=== PATIENT | male | born 1955 | race Caucasian/White ===

== ENCOUNTER 2020-02-18 17:18 | Emergency (ER) | payer MEDICARE, MEDICAID, OTHER ==
--- NOTE | 2020-02-18 18:15 | EDM.PDOC ---
ED HPI GENERAL MEDICAL PROBLEM - General Chief Complaint: General Stated Complaint: EVAL Time Seen by Provider: 02/18/20 18:05 Source of Information: Reports: Patient History Limitations: Reports: No Limitations - History of Present Illness INITIAL COMMENTS - FREE TEXT/NARRATIVE: Patient presents for evaluation of generalized achiness, fatigue, increasing foot pain, shortness of breath, chest discomfort. He has a complicated medical history with multiple comorbidities. He was last seen by a physician when he was hospitalized in her room approximately 1 year ago. He states that he has not gone into any clinics since that time. He has in-home personal assistance 9 hours/day for bathing and other items. When asked why he came tonight, he states that he went into his local clinic but given everything he described and the possibility he might have the coronavirus, he was referred here. His drove him here. He has had low-grade feelings of warmth but no chills. Some chronic intermittent coughing and shortness of breath although he spends most of his day in a wheelchair. He denies chest pain but describes things as chest discomfort. He has had some nausea but has not vomited routinely. He will eat some food but then be full quickly and will not eat anymore. He is not been on a scale for a long time and he has no idea if he is losing weight, gaining weight or holding his own. He has had pain in his legs for a long time he states since he was diagnosed with congestive heart failure. He cannot list his medications but his manages them. He is frustrated with the fact that others have to take care of him. She controls all of his medications now out of concern that he might attempt to overdose. Many years ago he was hospitalized with suicidal thoughts at the time of pending divorce. He has had no psychiatric hospitalizations since then. He considers his suicide risk low at this time. As noted above he was hospitalized in [place] approximately 1 year ago but the details of that visit are incomplete. Onset: Gradual Duration: Week(s):, Chronic, Intermittent Location: Reports: Head, Chest, Abdomen, Lower Extremity, Left, Lower Extremity, Right, Generalized Quality: Reports: Ache, Burning, Throbbing Severity: Moderate Improves with: Reports: None Worsens with: Reports: Movement Associated Symptoms: Reports: Chest Pain, Cough, Headaches, Loss of Appetite, Malaise, Nausea/Vomiting, Rash, Shortness of Breath, Weakness. Denies: Diaphoresis, Fever/Chills, Syncope Bilateral Feet Pain Score (Numeric/FACES): 10 - Related Data Allergies Allergy/AdvReac Type Severity Reaction Status Date / Time carvedilol [From Coreg] Allergy Other Verified 02/18/20 18:37 gabapentin Allergy Hives Verified 02/18/20 18:37 spironolactone Allergy Hives Verified 02/18/20 18:37 Home Meds: Home Meds Allopurinol [Zyloprim] 300 mg PO DAILY 02/18/20 [History] Colchicine [Colcrys] 0.6 mg PO TID PRN 02/18/20 [History] Cyclobenzaprine [Flexeril] 10 mg PO TID PRN 02/18/20 [History] Diltiazem HCl [Diltiazem 24Hr ER] 120 mg PO DAILY 02/18/20 [History] Furosemide 40 mg PO DAILY 02/18/20 [History] Magnesium Oxide 800 mg PO BID 02/18/20 [History] Metoprolol Succinate 75 mg PO DAILY 02/18/20 [History] Potassium Chloride 40 meq PO BID 02/18/20 [History] Sertraline [Zoloft] 25 mg PO DAILY 02/18/20 [History] atorvaSTATin [Lipitor] 10 mg PO DAILY 02/18/20 [History] hydrALAZINE [Apresoline] 25 mg PO Q8H 02/18/20 [History] metOLazone [Metolazone] 5 mg PO DAILY 02/18/20 [History] traZODone 100 mg PO BEDTIME 02/18/20 [History] Past Medical History HEENT History: Reports: Other (See Below) Other HEENT History: esophageal varices Cardiovascular History: Reports: Afib, Heart Failure Psychiatric History: Reports: Addiction Endocrine/Metabolic History: Reports: Diabetes, Type II - Infectious Disease History Infectious Disease History: Reports: Chicken Pox - Past Surgical History GI Surgical History: Reports: Cholecystectomy Social & Family History - Tobacco Use Smoking Status *Q: Never Smoker - Caffeine Use Caffeine Use: Reports: Other - Alcohol Use Days Per Week of Alcohol Use: 7 Number of Drinks Per Day: 3 Total Drinks Per Week: 21 - Recreational Drug Use Recreational Drug Use: No ED ROS GENERAL - Review of Systems Review Of Systems: See Below Constitutional: Reports: Malaise, Weakness, Fatigue, Decreased Appetite. Denies: Diaphoresis Respiratory: Reports: Shortness of Breath, Cough. Denies: Wheezing Cardiovascular: Reports: Chest Pain, Dyspnea on Exertion GI/Abdominal: Reports: Decreased Appetite, Nausea, Vomiting. Denies: Constipation, Diarrhea, Difficulty Swallowing, Hematochezia, Melena Musculoskeletal: Reports: Foot Pain, Muscle Pain Neurological: Reports: Headache Psychiatric: Reports: Anxiety ED EXAM, GENERAL - Physical Exam Exam: See Below Free Text/Narrative:: This is an adult male seated in an oversized wheelchair. He chronicles his history but sounds tired and frustrated. Exam Limited By: No Limitations General Appearance: Alert Neck: Normal Inspection Respiratory/Chest: Normal Breath Sounds. No: No Accessory Muscle Use Cardiovascular: Tachycardia, Irregularly Irregular Peripheral Pulses: 2+: Posterior Tibial (L), Posterior Tibial (R) GI/Abdominal: Soft. No: Distended Extremities: Other (There are varying thickness ulcers on both feet, the left foot shows a great toe ulcer with fissuring and black discoloration of the skin. There is an ulcer on the medial aspect of the left calcaneus. The right foot shows an ulcer on the distal lateral forefoot. There is diffuse tenderness. Some exudate present in the wounds.) Neurological: Other (Bilateral foot neuropathy.) Psychiatric: Depressed Mood, Flat Affect EKG INTERPRETATION EKG Date: 02/18/20 Time: 18:39 Rhythm: A-Fib [place]: LAD-Left [place] Deviation P-Wave: Absent QRS: Normal ST-T: Normal QT: Normal EKG Interpretation Comments: Atrial fibrillation with rapid ventricular response. Course - Vital Signs Last Recorded V/S: Last Vital Signs Temp 35.6 C L 02/18/20 17:31 Pulse 78 02/18/20 17:31 Resp 18 02/18/20 17:31 BP 139/89 02/18/20 17:31 Pulse Ox 95 02/18/20 17:31 - Orders/Labs/Meds Orders: Active Orders 24 hr Category Date Time Status EKG Documentation Completion [RC] ASDIRECTED Care 02/18/20 18:35 Ordered Chest 2V [CR] Stat Exams 02/18/20 18:33 Ordered Foot Comp Min 3V Bi [CR] Stat Exams 02/18/20 18:33 Ordered CORONAVIRUS COVID-19, ASA Routine Lab 02/18/20 18:35 Ordered GLYCOSYLATED HEMOGLOBIN,HGBA1C [CHEM] Stat Lab 02/18/20 19:55 Ordered EKG 12 Lead [EK] Routine Ther 02/18/20 18:34 Ordered Labs: Laboratory Tests 02/18/20 02/18/20 02/18/20 Range/Units 18:54 18:54 18:54 WBC 10.2 (4.5-11.0) K/uL RBC 5.27 (4.30-5.90) M/uL Hgb 15.0 (12.0-15.0) g/dL Hct 47.4 (40.0-54.0) % MCV 90 (80-98) fL MCH 29 (27-31) pg MCHC 32 (32-36) % Plt Count 293 (150-400) K/uL Neut % (Auto) 74 H (36-66) % Lymph % (Auto) 12 L (24-44) % [place] % (Auto) 12 H (2-6) % Eos % (Auto) 1 L (2-4) % Baso % (Auto) 1 (0-1) % ESR 87 H (0-20) mm/hr Sodium 140 (140-148) mmol/L Potassium 4.0 (3.6-5.2) mmol/L Chloride 100 (100-108) mmol/L Carbon Dioxide 28 (21-32) mmol/L Anion Gap 12.3 (5.0-14.0) mmol/L BUN 15 (7-18) mg/dL Creatinine 1.5 H (0.8-1.3) mg/dL Est Cr Clr Drug Dosing 47.50 mL/min Estimated GFR (MDRD) 47 L (>60) Glucose 200 H (74-106) mg/dL Calcium 8.6 (8.5-10.1) mg/dL Total Bilirubin 0.7 (0.2-1.0) mg/dL AST 52 H (15-37) U/L ALT 31 (12-78) U/L Alkaline Phosphatase 180 H (46-116) U/L Troponin I < 0.017 (0.000-0.056) ng/mL C-Reactive Protein 2.30 H (0.0-0.3) mg/dL NT-Pro-B Natriuret Pep (5-125) pg/mL Total Protein 8.2 (6.4-8.2) g/dL Albumin 2.8 L (3.4-5.0) g/dL Globulin 5.4 H (2.3-3.5) g/dL Albumin/Globulin Ratio 0.5 L (1.2-2.2) /16 Range/Units 18:55 WBC (4.5-11.0) K/uL RBC (4.30-5.90) M/uL Hgb (12.0-15.0) g/dL Hct (40.0-54.0) % MCV (80-98) fL MCH (27-31) pg MCHC (32-36) % Plt Count (150-400) K/uL Neut % (Auto) (36-66) % Lymph % (Auto) (24-44) % [place] % (Auto) (2-6) % Eos % (Auto) (2-4) % Baso % (Auto) (0-1) % ESR (0-20) mm/hr Sodium (140-148) mmol/L Potassium (3.6-5.2) mmol/L Chloride (100-108) mmol/L Carbon Dioxide (21-32) mmol/L Anion Gap (5.0-14.0) mmol/L BUN (7-18) mg/dL Creatinine (0.8-1.3) mg/dL Est Cr Clr Drug Dosing mL/min Estimated GFR (MDRD) (>60) Glucose (74-106) mg/dL Calcium (8.5-10.1) mg/dL Total Bilirubin (0.2-1.0) mg/dL AST (15-37) U/L ALT (12-78) U/L Alkaline Phosphatase (46-116) U/L Troponin I (0.000-0.056) ng/mL C-Reactive Protein (0.0-0.3) mg/dL NT-Pro-B Natriuret Pep 1065 H (5-125) pg/mL Total Protein (6.4-8.2) g/dL Albumin (3.4-5.0) g/dL Globulin (2.3-3.5) g/dL Albumin/Globulin Ratio (1.2-2.2) - Re-Assessments/Exams Free Text/Narrative Re-Assessment/Exam: 02/18/20 20:01 I reviewed findings with patient and his . Blood glucose is 200. Troponin is okay. He has renal function shows a creatinine of 1.5. His has some recall for medications that he takes however he has not been taking any of them regularly. He is insistent that he does not want to be hospitalized. He is on only 120 mg of sustained-release diltiazem. I am sending him with a prescription for 14 tablets of the 180 mg strength. I discussed that once his heart rate is more controlled, he will have more energy. His questions the dose currently of his metoprolol. I reminded the patient and his several times that consistency is the esteban to getting him to feel better. He lists a dose of only 25 mg of sertraline. Given his frustration with his chronic conditions, he needs to take that every day, which she has not been. After 1 week, he could increase the dose to 50 mg and likely it will have to go higher. His ulcers will need evaluation by podiatry or surgery and likely will need some debridement. He should schedule a recheck time with his primary care provider for 10 to 14 days from now. If he if he feels worse in any way, he can return here. Reviewed with both of them that there is no quick, simple solution to getting him to feel better. Departure - Departure Time of Disposition: 19:52 Disposition: Home, Self-Care 01 Condition: Fair Clinical Impression: Atrial fibrillation with rapid ventricular response, Hyperglycemia, Cellulitis, CHF, Congestive heart failure Diabetic foot ulcers Qualifiers: Diabetic foot ulcer location: unspecified part of foot Diabetes mellitus type: type 2 Laterality: unspecified laterality Non-pressure ulcer stage: with fat layer exposed Qualified Code(s): E11.621 - Type 2 diabetes mellitus with foot ulcer - Discharge Information Instructions: Preventing Diabetes Mellitus Complications Referrals: Warren Clinton NP [Primary Care Provider] - Forms: ED Department Discharge Additional Instructions: Take a dose of your diltiazem when you get home tonight. Tomorrow, fill the prescriptions for the antibiotic for your feet and the new higher dose of diltiazem. Continue your other medicines the same. Make an appointment for 10 to 14 days from now with Dr. Kelley in [place]. You need to be on all of your medicines regularly for 10 days in order to best figure out how to help you. There are several conditions that need tuning up and only time and effort will help that. Your COVID-19 test will be available in about a week based on current turnaround time. If you feel worse in any way return to your clinic in [place] or this emergency department. Sepsis Event Note (ED) - Evaluation Sepsis Screening Result: No Definite Risk - Focused Exam Vital Signs: Vital Signs Temp Pulse Resp BP Pulse Ox 02/18/20 17:31 35.6 C L 78 18 139/89 95 02/18/20 17:24 35.6 C L 78 18 139/89 95 - My Orders Last 24 Hours: My Active Orders 02/18/20 18:33 Chest 2V [CR] Stat Foot Comp Min 3V Bi [CR] Stat 02/18/20 18:34 EKG 12 Lead [EK] Routine 02/18/20 18:35 EKG Documentation Completion [RC] ASDIRECTED CORONAVIRUS COVID-19, ASA Routine 02/18/20 19:55 GLYCOSYLATED HEMOGLOBIN,HGBA1C [CHEM] Stat - Assessment/Plan Last 24 Hours: My Active Orders 02/18/20 18:33 Chest 2V [CR] Stat Foot Comp Min 3V Bi [CR] Stat 02/18/20 18:34 EKG 12 Lead [EK] Routine 02/18/20 18:35 EKG Documentation Completion [RC] ASDIRECTED CORONAVIRUS COVID-19, ASA Routine 02/18/20 19:55 GLYCOSYLATED HEMOGLOBIN,HGBA1C [CHEM] Stat
--- NOTE | 2020-02-19 09:41 | CR ---
FOOT RIGHT 3 views CLINICAL HISTORY:Multiple ulcers, bone pain FINDINGS:There is a large the ulceration medial to the first MTP joint. There is mild diffuse osteophytic changes. No definite focal lesion is identified. Impression: Large ulcer base of first toe. No underlying lytic lesion is identified. If osteomyelitis is suspected, a 3 phase bone scan is consideration on a nonemergent basis Mild osteoarthritic change
--- NOTE | 2020-02-19 09:41 | CR ---
CHEST: 2 view CLINICAL HISTORY:Chest pain COMPARISON:None FINDINGS: There is moderate breathing motion on the lateral image. Heart is mildly enlarged. No infiltrate effusion or pneumothorax is seen. There is granuloma in the left midlung field. There are atherosclerotic changes in the aorta. Impression: Mild cardiomegaly No acute cardiopulmonary process.
== END 2020-02-18 20:06 | disposition home or self-care (01) ==
LOC: JP.ED 17:18
DX: E11.621 Type 2 diabetes mellitus with foot ulcer (principal); L97.522 Non-pressure chronic ulcer of other part of left foot with fat layer exposed; L97.512 Non-pressure chronic ulcer of other part of right foot with fat layer exposed; E11.65 Type 2 diabetes mellitus with hyperglycemia; I48.91 Unspecified atrial fibrillation; L03.116 Cellulitis of left lower limb; L03.115 Cellulitis of right lower limb; I50.9 Heart failure, unspecified; E11.40 Type 2 diabetes mellitus with diabetic neuropathy, unspecified; Z20.828 Contact with and (suspected) exposure to other viral communicable diseases; Z88.8 Allergy status to other drugs, medicaments and biological substances; Z79.899 Other long term (current) drug therapy
CPT/HCPCS: 36415; 71046; 73630; 80053; 83036; 83880; 84484; 85025; 85651; 86140; 93005; 93010; 99284; 99285; U0002

== ENCOUNTER 2020-02-21 12:49 | Inpatient (IN) | payer MEDICARE, MEDICAID, OTHER ==
--- NOTE | 2020-02-21 12:58 | EDM.PDOC ---
ED HPI GENERAL MEDICAL PROBLEM - General Stated Complaint: MEDICAL VIA TRI Time Seen by Provider: 02/21/20 12:50 Source of Information: Reports: Patient, EMS History Limitations: Reports: Altered Mental Status, Respiratory Distress - History of Present Illness INITIAL COMMENTS - FREE TEXT/NARRATIVE: 64-year-old male who was just in the emergency room a few days ago in atrial fibrillation with rapid ventricular response, returns with decreased mental status and shortness of breath. His significant other was concerned because he did not seem to why communicate this morning, was sitting in his wheelchair relatively unresponsive and would not take his medications so she called the ambulance. No fevers or chills, he has marked difficulty in speaking but was able to respond he "cannot breathe" to one of the nurses but I could not get him to vocalize any responses to questions. He does open his eyes to loud voice and sternal rub but will not focus on anyone. Breath sounds sound raspy and even mildly stridorous, but O2 sats are 95% on room air. Blood pressure is stable. Temperature is 97.1. No further history is obtainable other than he was recently increased his dose of diltiazem in the emergency room because of atrial fibrillation with rapid ventricular response. Onset: Unknown/Unsure - Related Data Allergies Allergy/AdvReac Type Severity Reaction Status Date / Time carvedilol [From Coreg] Allergy Other Verified 02/18/20 18:37 gabapentin Allergy Hives Verified 02/18/20 18:37 spironolactone Allergy Hives Verified 02/18/20 18:37 Home Meds: Home Meds Allopurinol [Zyloprim] 300 mg PO DAILY 02/18/20 [History] Colchicine [Colcrys] 0.6 mg PO TID PRN 02/18/20 [History] Cyclobenzaprine [Flexeril] 10 mg PO TID PRN 02/18/20 [History] Diltiazem HCl [Diltiazem 24Hr ER] 120 mg PO DAILY 02/18/20 [History] Furosemide 40 mg PO DAILY 02/18/20 [History] Magnesium Oxide 800 mg PO BID 02/18/20 [History] Metoprolol Succinate 75 mg PO DAILY 02/18/20 [History] Potassium Chloride 40 meq PO BID 02/18/20 [History] Sertraline [Zoloft] 25 mg PO DAILY 02/18/20 [History] atorvaSTATin [Lipitor] 10 mg PO DAILY 02/18/20 [History] hydrALAZINE [Apresoline] 25 mg PO Q8H 02/18/20 [History] metOLazone [Metolazone] 5 mg PO DAILY 02/18/20 [History] traZODone 100 mg PO BEDTIME 02/18/20 [History] Past Medical History HEENT History: Reports: Other (See Below) Other HEENT History: esophageal varices Cardiovascular History: Reports: Afib, Heart Failure Psychiatric History: Reports: Addiction Endocrine/Metabolic History: Reports: Diabetes, Type II - Infectious Disease History Infectious Disease History: Reports: Chicken Pox - Past Surgical History GI Surgical History: Reports: Cholecystectomy Social & Family History - Caffeine Use Caffeine Use: Reports: Other ED ROS GENERAL - Review of Systems Review Of Systems: See Below (Briefly said he could not breathe still with the nurses, but I could not get no further responses or review of systems from the patient) ED EXAM, GENERAL - Physical Exam Exam: See Below Exam Limited By: Altered Mental Status General Appearance: Lethargic Eye Exam: Bilateral Eye: Other (Pupils are small and equal, no disconjugate gaze) Throat/Mouth: Other (Very advanced dental decay and widespread caries) Head: Atraumatic Neck: Supple, Non-Tender Respiratory/Chest: Lungs Clear Cardiovascular: Regular Rate, Rhythm, Other (Patient is bradycardic, rhythm sounds consistent, distant heart sounds) GI/Abdominal: Other (Morbidly obese, reacts with no tenderness to palpation of the abdomen) Extremities: Pedal Edema (Symmetric 2+ pitting edema, numerous ulcerations on the feet some bandaged.) Neurological: Inattentive, Slow to Respond Skin Exam: Warm, Dry EKG INTERPRETATION EKG Date: 02/21/20 Time: 13:50 Rhythm: A-Fib ST-T: Normal EKG Interpretation Comments: EKG now looks like atrial fib with slow ventricular response, initially it appeared to be a ventricular escape rhythm but they do not map out regularly so it is more likely it is atrial fibrillation. Course - Vital Signs Last Recorded V/S: Last Vital Signs Temp 94.3 F L 02/21/20 16:00 Pulse 52 L 02/21/20 16:00 Resp 8 L 02/21/20 16:00 BP 135/74 02/21/20 16:00 Pulse Ox 98 07/19/20 16:00 - Orders/Labs/Meds Orders: Active Orders 24 hr Category Date Time Status Insert Thompson Catheter [Insert Urinary Catheter] [OM.PC] Care 02/21/20 14:15 Ordered Q24H Urinary Catheter Assessment [RC] ASDIRECTED Care 02/21/20 14:11 Active Foot 2V Lt [CR] Stat Exams 02/21/20 15:00 Taken CULTURE BLOOD [BC] Urgent Lab 02/21/20 13:48 Received CULTURE BLOOD [BC] Urgent Lab 02/21/20 14:04 Received Sodium Chloride 0.9% [Normal Saline] 1,000 ml Med 02/21/20 15:00 Active IV ASDIRECTED Vancomycin 2 gm Med 02/21/20 14:30 Active Sodium Chloride 0.9% [Normal Saline] 500 ml IV ONETIME Blood Culture x2 Reflex Set [OM.PC] Urgent Oth 02/21/20 13:31 Ordered EKG 12 Lead [EK] Routine Ther 02/21/20 12:56 Stop Req Medication Orders Acetaminophen (Tylenol) 650 mg PO Q4H PRN PRN Reason: Pain (Mild 1-3)/fever Albuterol (Proventil Neb Soln) 2.5 mg NEB Q4H PRN PRN Reason: Shortness Of Breath/wheezing Enoxaparin Sodium (Lovenox) 30 mg SUBCUT DAILY [facility] Vancomycin HCl 2 gm/ Sodium (Chloride) 500 mls @ 250 mls/hr IV ONETIME ONE Stop: 02/21/20 16:29 Last Admin: 02/21/20 14:23 Dose: 250 mls/hr Documented by: YIFAN Sodium Chloride (Normal Saline) 1,000 mls @ 700 mls/hr IV ASDIRECTED [facility] Stop: 02/21/20 16:26 Last Admin: 02/21/20 15:13 Dose: 700 mls/hr Documented by: KYMBSTA Sodium Chloride (Normal Saline) 1,000 mls @ 125 mls/hr IV ASDIRECTED [facility] Last Admin: 02/21/20 16:05 Dose: 125 mls/hr Documented by: CASEY Vancomycin HCl 2 gm/ Sodium (Chloride) 500 mls @ 250 mls/hr IV Q24H [facility] Meropenem 500 mg/ Sodium (Chloride) 50 mls @ 100 mls/hr IV Q12H JENISE Insulin Human Lispro (Humalog) 0 unit SUBCUT Q6H JENISE; Protocol Lactobacillus Rhamnosus (Culturelle) 1 cap PO BID JENISE Lorazepam (Ativan) 0.5 mg IVPUSH Q4H PRN PRN Reason: Nausea/Vomiting Magnesium Hydroxide (Milk Of Magnesia) 30 ml PO Q12H PRN PRN Reason: Constipation Ondansetron HCl (Zofran) 4 mg IV Q6H PRN PRN Reason: Nausea/Vomiting Ondansetron HCl (Zofran Odt) 4 mg PO Q6H PRN PRN Reason: Nausea able to take PO Pantoprazole Sodium (Protonix) 40 mg PO ACBREAKFAST JENISE Senna/Docusate Sodium (Senna Plus) 1 tab PO BID PRN PRN Reason: Constipation Labs: Laboratory Tests 02/21/20 02/21/20 02/21/20 Range/Units 12:52 13:00 13:00 WBC 20.5 H (4.5-11.0) K/uL RBC 4.77 (4.30-5.90) M/uL Hgb 13.8 (12.0-15.0) g/dL Hct 44.6 (40.0-54.0) % MCV 94 (80-98) fL MCH 29 (27-31) pg MCHC 31 L (32-36) % Plt Count 341 (150-400) K/uL Neut % (Auto) 93 H (36-66) % Lymph % (Auto) 3 L (24-44) % [place] % (Auto) 4 (2-6) % Eos % (Auto) 0 L (2-4) % Baso % (Auto) 0 (0-1) % Puncture Site Rt brachial ABG pH 7.363 (7.350-7.450) ABG pCO2 40.4 (35.0-42.0) mmHg ABG pO2 101.0 H (75.0-100.0) mmHg ABG HCO3 22.4 (22.0-26.0) mmol/L ABG Total CO2 20.0 L (23.0-27.0) mmol/L ABG O2 Saturation 97.1 (95.0-98.0) % ABG O2 Content 18.6 (15.0-23.0) %vol ABG Base Excess -2.3 mm/L ABG Hemoglobin 13.8 (13.5-18.0) g/dL ABG Oxyhemoglobin 94.9 % ABG Carboxyhemoglobin 1.6 (0.0-1.6) % ABG Methemoglobin 0.7 % Cortes Test N/a O2 Delivery Device Room air Sodium 134 L (140-148) mmol/L Potassium 5.5 H (3.6-5.2) mmol/L Chloride 96 L (100-108) mmol/L Carbon Dioxide 24 (21-32) mmol/L Anion Gap 19.5 H (5.0-14.0) mmol/L BUN 22 H (7-18) mg/dL Creatinine 2.7 H D (0.8-1.3) mg/dL Est Cr Clr Drug Dosing TNP Estimated GFR (MDRD) 24 L (>60) Glucose 215 H (74-106) mg/dL Lactic Acid (0.4-2.0) mmol/L Calcium 8.3 L (8.5-10.1) mg/dL Total Bilirubin 1.1 H D (0.2-1.0) mg/dL AST 62 H (15-37) U/L ALT 45 (12-78) U/L Alkaline Phosphatase 179 H (46-116) U/L Troponin I < 0.017 (0.000-0.056) ng/mL Total Protein 8.6 H (6.4-8.2) g/dL Albumin 3.1 L (3.4-5.0) g/dL Globulin 5.5 H (2.3-3.5) g/dL Albumin/Globulin Ratio 0.6 L (1.2-2.2) Urine Color (YELLOW) Urine Appearance (CLEAR) Urine pH (5.0-8.0) Ur Specific Woodson (1.008-1.030) Urine Protein (NEGATIVE) mg/dL Urine Glucose (UA) (NEGATIVE) mg/dL Urine Ketones (NEGATIVE) mg/dL Urine Occult Blood (NEGATIVE) Urine Nitrite (NEGATIVE) Urine Bilirubin (NEGATIVE) Urine Urobilinogen (0.2-1.0) EU/dL Ur Leukocyte Esterase (NEGATIVE) Urine RBC (0-5) Urine WBC (0-5) Ur Epithelial Cells Amorphous Sediment Urine Bacteria Urine Mucus Urine Other Urine Opiates Screen (NEGATIVE) Ur Oxycodone Screen (NEGATIVE) Urine Methadone Screen (NEGATIVE) Ur Propoxyphene Screen (NEGATIVE) Ur Barbiturates Screen (NEGATIVE) Ur Tricyclics Screen (NEGATIVE) Ur Phencyclidine Scrn (NEGATIVE) Ur Amphetamine Screen (NEGATIVE) U Methamphetamines Scrn (NEGATIVE) Urine MDMA Screen (NEGATIVE) U Benzodiazepines Scrn (NEGATIVE) U Cocaine Metab Screen (NEGATIVE) U Marijuana (THC) Screen (NEGATIVE) SARS Virus RNA (PCR) (NEGATIVE) 02/21/20 02/21/20 02/21/20 Range/Units 13:00 14:28 14:46 WBC (4.5-11.0) K/uL RBC (4.30-5.90) M/uL Hgb (12.0-15.0) g/dL Hct (40.0-54.0) % MCV (80-98) fL MCH (27-31) pg MCHC (32-36) % Plt Count (150-400) K/uL Neut % (Auto) (36-66) % Lymph % (Auto) (24-44) % [place] % (Auto) (2-6) % Eos % (Auto) (2-4) % Baso % (Auto) (0-1) % Puncture Site ABG pH (7.350-7.450) ABG pCO2 (35.0-42.0) mmHg ABG pO2 (75.0-100.0) mmHg ABG HCO3 (22.0-26.0) mmol/L ABG Total CO2 (23.0-27.0) mmol/L ABG O2 Saturation (95.0-98.0) % ABG O2 Content (15.0-23.0) %vol ABG Base Excess mm/L ABG Hemoglobin (13.5-18.0) g/dL ABG Oxyhemoglobin % ABG Carboxyhemoglobin (0.0-1.6) % ABG Methemoglobin % Cortes Test O2 Delivery Device Sodium (140-148) mmol/L Potassium (3.6-5.2) mmol/L Chloride (100-108) mmol/L Carbon Dioxide (21-32) mmol/L Anion Gap (5.0-14.0) mmol/L BUN (7-18) mg/dL Creatinine (0.8-1.3) mg/dL Est Cr Clr Drug Dosing Estimated GFR (MDRD) (>60) Glucose (74-106) mg/dL Lactic Acid 4.6 H (0.4-2.0) mmol/L Calcium (8.5-10.1) mg/dL Total Bilirubin (0.2-1.0) mg/dL AST (15-37) U/L ALT (12-78) U/L Alkaline Phosphatase (46-116) U/L Troponin I (0.000-0.056) ng/mL Total Protein (6.4-8.2) g/dL Albumin (3.4-5.0) g/dL Globulin (2.3-3.5) g/dL Albumin/Globulin Ratio (1.2-2.2) Urine Color Yellow (YELLOW) Urine Appearance Cloudy A (CLEAR) Urine pH 5.5 (5.0-8.0) Ur Specific Woodson 1.025 (1.008-1.030) Urine Protein >=300 H (NEGATIVE) mg/dL Urine Glucose (UA) Negative (NEGATIVE) mg/dL Urine Ketones Negative (NEGATIVE) mg/dL Urine Occult Blood Negative (NEGATIVE) Urine Nitrite Negative (NEGATIVE) Urine Bilirubin Negative (NEGATIVE) Urine Urobilinogen 0.2 (0.2-1.0) EU/dL Ur Leukocyte Esterase Negative (NEGATIVE) Urine RBC 0-5 (0-5) Urine WBC 0-5 (0-5) Ur Epithelial Cells Few Amorphous Sediment Packed Urine Bacteria Not seen Urine Mucus Not seen Urine Other See note Urine Opiates Screen (NEGATIVE) Ur Oxycodone Screen (NEGATIVE) Urine Methadone Screen (NEGATIVE) Ur Propoxyphene Screen (NEGATIVE) Ur Barbiturates Screen (NEGATIVE) Ur Tricyclics Screen (NEGATIVE) Ur Phencyclidine Scrn (NEGATIVE) Ur Amphetamine Screen (NEGATIVE) U Methamphetamines Scrn (NEGATIVE) Urine MDMA Screen (NEGATIVE) U Benzodiazepines Scrn (NEGATIVE) U Cocaine Metab Screen (NEGATIVE) U Marijuana (THC) Screen (NEGATIVE) SARS Virus RNA (PCR) Negative (NEGATIVE) 02/21/20 Range/Units 15:01 WBC (4.5-11.0) K/uL RBC (4.30-5.90) M/uL Hgb (12.0-15.0) g/dL Hct (40.0-54.0) % MCV (80-98) fL MCH (27-31) pg MCHC (32-36) % Plt Count (150-400) K/uL Neut % (Auto) (36-66) % Lymph % (Auto) (24-44) % [place] % (Auto) (2-6) % Eos % (Auto) (2-4) % Baso % (Auto) (0-1) % Puncture Site ABG pH (7.350-7.450) ABG pCO2 (35.0-42.0) mmHg ABG pO2 (75.0-100.0) mmHg ABG HCO3 (22.0-26.0) mmol/L ABG Total CO2 (23.0-27.0) mmol/L ABG O2 Saturation (95.0-98.0) % ABG O2 Content (15.0-23.0) %vol ABG Base Excess mm/L ABG Hemoglobin (13.5-18.0) g/dL ABG Oxyhemoglobin % ABG Carboxyhemoglobin (0.0-1.6) % ABG Methemoglobin % Cortes Test O2 Delivery Device Sodium (140-148) mmol/L Potassium (3.6-5.2) mmol/L Chloride (100-108) mmol/L Carbon Dioxide (21-32) mmol/L Anion Gap (5.0-14.0) mmol/L BUN (7-18) mg/dL Creatinine (0.8-1.3) mg/dL Est Cr Clr Drug Dosing Estimated GFR (MDRD) (>60) Glucose (74-106) mg/dL Lactic Acid (0.4-2.0) mmol/L Calcium (8.5-10.1) mg/dL Total Bilirubin (0.2-1.0) mg/dL AST (15-37) U/L ALT (12-78) U/L Alkaline Phosphatase (46-116) U/L Troponin I (0.000-0.056) ng/mL Total Protein (6.4-8.2) g/dL Albumin (3.4-5.0) g/dL Globulin (2.3-3.5) g/dL Albumin/Globulin Ratio (1.2-2.2) Urine Color (YELLOW) Urine Appearance (CLEAR) Urine pH (5.0-8.0) Ur Specific [place]son (1.008-1.030) Urine Protein (NEGATIVE) mg/dL Urine Glucose (UA) (NEGATIVE) mg/dL Urine Ketones (NEGATIVE) mg/dL Urine Occult Blood (NEGATIVE) Urine Nitrite (NEGATIVE) Urine Bilirubin (NEGATIVE) Urine Urobilinogen (0.2-1.0) EU/dL Ur Leukocyte Esterase (NEGATIVE) Urine RBC (0-5) Urine WBC (0-5) Ur Epithelial Cells Amorphous Sediment Urine Bacteria Urine Mucus Urine Other Urine Opiates Screen Negative (NEGATIVE) Ur Oxycodone Screen Negative (NEGATIVE) Urine Methadone Screen Negative (NEGATIVE) Ur Propoxyphene Screen Negative (NEGATIVE) Ur Barbiturates Screen Negative (NEGATIVE) Ur Tricyclics Screen Presumptive positive H (NEGATIVE) Ur Phencyclidine Scrn Negative (NEGATIVE) Ur Amphetamine Screen Negative (NEGATIVE) U Methamphetamines Scrn Negative (NEGATIVE) Urine MDMA Screen Negative (NEGATIVE) U Benzodiazepines Scrn Negative (NEGATIVE) U Cocaine Metab Screen Negative (NEGATIVE) U Marijuana (THC) Screen Negative (NEGATIVE) SARS Virus RNA (PCR) (NEGATIVE) Meds: Medications Generic Name Dose Route Start Last Admin Trade Name Freq PRN Reason Stop Dose Admin Acetaminophen 650 mg 02/21/20 15:47 Tylenol PO Q4H PRN Pain (Mild 1-3)/fever Albuterol 2.5 mg 02/21/20 15:47 Proventil Neb Soln NEB Q4H PRN Shortness Of Breath/wheezing Enoxaparin Sodium 30 mg 02/22/20 09:00 Lovenox SUBCUT DAILY JENISE Vancomycin HCl 2 gm/ Sodium 500 mls @ 250 mls/hr 02/21/20 14:30 02/21/20 14:23 Chloride IV 02/21/20 16:29 250 mls/hr ONETIME ONE Administration Sodium Chloride 1,000 mls @ 700 mls/hr 02/21/20 15:00 02/21/20 15:13 Normal Saline IV 02/21/20 16:26 700 mls/hr ASDIRECTED JENISE Administration Sodium Chloride 1,000 mls @ 125 mls/hr 02/21/20 15:47 02/21/20 16:05 Normal Saline IV 125 mls/hr ASDIRECTED JENISE Administration Vancomycin HCl 2 gm/ Sodium 500 mls @ 250 mls/hr 02/22/20 15:00 Chloride IV Q24H JENISE Meropenem 500 mg/ Sodium 50 mls @ 100 mls/hr 02/22/20 02:00 Chloride IV Q12H JENISE Insulin Human Lispro 0 unit 02/21/20 18:00 Humalog SUBCUT Q6H [facility] Protocol Lactobacillus Rhamnosus 1 cap 02/21/20 21:00 Culturelle PO BID JENISE Lorazepam 0.5 mg 02/21/20 15:47 Ativan IVPUSH Q4H PRN Nausea/Vomiting Magnesium Hydroxide 30 ml 02/21/20 15:47 Milk Of Magnesia PO Q12H PRN Constipation Ondansetron HCl 4 mg 02/21/20 15:47 Zofran IV Q6H PRN Nausea/Vomiting Ondansetron HCl 4 mg 02/21/20 15:47 Zofran Odt PO Q6H PRN Nausea able to take PO Pantoprazole Sodium 40 mg 02/22/20 07:30 Protonix PO ACBREAKFAST JENISE Senna/Docusate Sodium 1 tab 02/21/20 15:47 Senna Plus PO BID PRN Constipation Discontinued Medications Generic Name Dose Route Start Last Admin Trade Name Freq PRN Reason Stop Dose Admin Sodium Chloride 1,000 mls @ 1,000 mls/hr 02/21/20 13:45 02/21/20 13:52 Normal Saline IV 1,000 mls/hr ASDIRECTED [facility] Administration Vancomycin HCl 1 gm/ Sodium 250 mls @ 150 mls/hr 02/21/20 13:42 Chloride IV 02/21/20 15:21 ONETIME ONE Meropenem 1 gm/ Sodium 100 mls @ 200 mls/hr 02/21/20 14:30 02/21/20 14:22 Chloride IV 02/21/20 14:59 200 mls/hr ONETIME ONE Administration - Re-Assessments/Exams Free Text/Narrative Re-Assessment/Exam: 02/21/20 13:53 Normal saline bolus was started, blood cultures, CBC, CMP, troponin, lactic acid were obtained and the patient was sent back for head and chest CT. When he returned a COVID-19 test was drawn. My own review of the CT showed no acute bleed and the chest was actually clear other than cardiomegaly, official readings are pending. Went in to talk to the patient and he is clearing, he is starting to answer questions now but still looks agitated and anxious. 1 g of meropenem along with 1 g of vancomycin were obtained after blood cultures were drawn. Troponin returned negative, white count is now 20,000. 02/21/20 14:09 EKG is done and appears to be slow ventricular response to atrial fibrillation. 02/21/20 16:[address] chest CT are negative. Working diagnosis is some type of sepsis syndrome, Dr. Moran of the hospitalist service agreed to admit the patient. Departure - Departure Time of Disposition: 15:48 Disposition: Admitted As Inpatient 65 Clinical Impression: Sepsis syndrome Atrial fibrillation Qualifiers: Atrial fibrillation type: paroxysmal Qualified Code(s): I48.0 - Paroxysmal atrial fibrillation Change in mental status Qualifiers: Altered mental status type: stupor Qualified Code(s): R40.1 - Stupor - Discharge Information Sepsis Event Note (ED) - Focused Exam Vital Signs: Vital Signs Temp Pulse Resp BP Pulse Ox 02/21/20 14:25 50 L 10 L 115/79 96 02/21/20 13:55 48 L 110/83 02/21/20 13:25 97.1 F 48 L 10 L 97/73 98 02/21/20 13:00 95.3 F L 51 L 10 L 112/70 93 L 02/21/20 12:51 97.1 F 54 L 9 L 112/70 95 - My Orders Last 24 Hours: My Active Orders 02/21/20 12:56 EKG 12 Lead [EK] Routine 02/21/20 13:31 Blood Culture x2 Reflex Set [OM.PC] Urgent 02/21/20 13:48 CULTURE BLOOD [BC] Urgent 02/21/20 14:04 CULTURE BLOOD [BC] Urgent 02/21/20 14:11 Urinary Catheter Assessment [RC] ASDIRECTED 02/21/20 14:15 Insert Thompson Catheter [Insert Urinary Catheter] [OM.PC] Q24H - Assessment/Plan Last 24 Hours: My Active Orders 02/21/20 12:56 EKG 12 Lead [EK] Routine 02/21/20 13:31 Blood Culture x2 Reflex Set [OM.PC] Urgent 02/21/20 13:48 CULTURE BLOOD [BC] Urgent 02/21/20 14:04 CULTURE BLOOD [BC] Urgent 02/21/20 14:11 Urinary Catheter Assessment [RC] ASDIRECTED 02/21/20 14:15 Insert Thompson Catheter [Insert Urinary Catheter] [OM.PC] Q24H
[2020-02-21] MEDS ORDERED: Sodium Chloride 3% 500 ML IV SCH (13:30)
[2020-02-21] MEDS ORDERED: Meropenem 1 GM in Sodium Chloride 0.9% 100 ML IV ONE ×2 (13:42→14:30)
[2020-02-21] MEDS ORDERED: Sodium Chloride 0.9% 1,000 ML IV SCH ×2 (13:45→15:00)
--- NOTE | 2020-02-21 14:06 | CRLCT ---
Mental status change. TECHNIQUE: Noncontrast CT chest. No comparison studies are available. Findings: Normal caliber thoracic aorta. The heart is enlarged. There is no pericardial effusion. No mediastinal or hilar adenopathy. Granuloma in the left upper lobe minimal basilar atelectasis. No effusion. Nodular contour to the liver. Cholecystectomy. Spleen adrenal glands unremarkable pancreas is unremarkable no suspicious bony lesions. IMPRESSION: No acute pulmonary findings. Nodular contour to the liver which may reflect cirrhosis. Please note that all CT scans at this facility use dose modulation, iterative reconstruction, and/or weight-based dosing when appropriate to reduce radiation dose to as low as reasonably achievable. Dictated by Rhonda Peralta MD @ Feb 21 2020 2:02PM Signed by Dr. Rhonda Peralta @ Feb 21 2020 2:05PM
--- NOTE | 2020-02-21 14:08 | CRLCT ---
INDICATION: Mental status change. TECHNIQUE: CT head without contrast. COMPARISON: None. FINDINGS: CSF spaces: Within normal limits for age. Brain parenchyma and extra-axial spaces: The anthony-white differentiation is normal. No sign of mass, hemorrhage, or midline shift. No extra-axial fluid collection. Skull base and calvarium: The visualized paranasal sinuses and mastoid air cells demonstrate no acute or significant findings. The visualized orbits are grossly unremarkable. No skull fractures. IMPRESSION: Unremarkable noncontrast head CT. Dictated by Real Smith MD @ 02/21/2020 2:07:22 PM Please note that all CT scans at this facility use dose modulation, iterative reconstruction, and/or weight-based dosing when appropriate to reduce radiation dose to as low as reasonably achievable. Dictated by: Real Smith MD @ 02/21/2020 14:07:29 (Electronically Signed)
[2020-02-21] MEDS ORDERED: Vancomycin 2 GM in Sodium Chloride 0.9% 500 ML IV ONE (14:30)
--- NOTE | 2020-02-21 15:19 | PCM.HP.2 ---
H&P History of Present Illness - General Date of Service: 02/21/20 Admit Problem/Dx: Admission Diagnosis/Problem Admission Diagnosis/Problem Acute kidney injury Source of Information: Provider. No: Patient History Limitations: Reports: Altered Mental Status - History of Present Illness Initial Comments - Free Text/Narative: CC: I can't breathe HPI: Marino to the ER via ambulance from his home. He is very lethargic and able to provide only minimal hx. history is gathered from his emergency room providers and they did receive information from his significant other and pa ramedics. Patient was seen in the emergency room a few days ago with aches and pains and just generally not feeling well. He was noted to have a fast rate with his atrial fibrillation and his diltiazem was increased. He did not want to be admitted to the hospital at this time though there was some concern about cellulitis around 1 of his diabetic foot ulcers, notably on the right foot. He was sent home with antibiotics. Last night his significant other reported that he vomited after eating a small amount of supper. He had multiple rounds of emesis and then fell asleep in his wheelchair. This morning he was very lethargic so she called 911. Work-up in the emergency room has raised concern for sepsis with significant leukocytosis and lactic acidosis though the patient's vital signs are stable. No obvious source of infection has been found so far. His kidney function is down considerably from his baseline. He has received IV antibiotics. Cultures have been obtained. He has received IV fluids. - Related Data Allergies/Adverse Reactions: Allergies Allergy/AdvReac Type Severity Reaction Status Date / Time carvedilol [From Coreg] Allergy Other Verified 02/18/20 18:37 gabapentin Allergy Hives Verified 02/18/20 18:37 spironolactone Allergy Hives Verified 02/18/20 18:37 Home Medications: Home Meds Allopurinol [Zyloprim] 300 mg PO DAILY 02/18/20 [History] Colchicine [Colcrys] 0.6 mg PO TID PRN 02/18/20 [History] Cyclobenzaprine [Flexeril] 10 mg PO TID PRN 02/18/20 [History] Diltiazem HCl [Diltiazem 24Hr ER] 120 mg PO DAILY 02/18/20 [History] Furosemide 40 mg PO DAILY 02/18/20 [History] Magnesium Oxide 800 mg PO BID 02/18/20 [History] Metoprolol Succinate 75 mg PO DAILY 02/18/20 [History] Potassium Chloride 40 meq PO BID 02/18/20 [History] Sertraline [Zoloft] 25 mg PO DAILY 02/18/20 [History] atorvaSTATin [Lipitor] 10 mg PO DAILY 02/18/20 [History] hydrALAZINE [Apresoline] 25 mg PO Q8H 02/18/20 [History] metOLazone [Metolazone] 5 mg PO DAILY 02/18/20 [History] traZODone 100 mg PO BEDTIME 02/18/20 [History] Past Medical History HEENT History: Reports: Other (See Below) Other HEENT History: esophageal varices Cardiovascular History: Reports: Afib, Heart Failure Psychiatric History: Reports: Addiction Endocrine/Metabolic History: Reports: Diabetes, Type II - Infectious Disease History Infectious Disease History: Reports: Chicken Pox - Past Surgical History GI Surgical History: Reports: Cholecystectomy Social & Family History - Family History Family Medical History: Unobtainable (pt minimally responsive) - Tobacco Use Smoking Status *Q: Unknown Ever Smoked - Caffeine Use Caffeine Use: Reports: Other Caffeine Use Comment: unable to obtain H&P Review of Systems - Review of Systems: Review Of Systems: Unable To Obtain Reason Not Obtained: minimally responsive, questions he did answer in HPI Exam - Exam Exam: See Below - Vital Signs Vital Signs: Last Vital Signs Temp 36.2 C 02/21/20 13:25 Pulse 50 L 02/21/20 14:25 Resp 10 L 02/21/20 14:25 BP 115/79 02/21/20 14:25 Pulse Ox 96 02/21/20 14:25 Weight: 151.93 kg - Exam Quality Assessment: No: Supplemental Oxygen General: Alert, Cooperative, Lethargic. No: Oriented, Mild Distress HEENT: Conjunctiva Clear. No: Mucosa Moist & [place] (dry), Scleral Icterus Neck: Supple, Trachea Midline. No: JVD Lungs: Clear to Auscultation, Normal Respiratory Effort Cardiovascular: Regular Rhythm, Bradycardia. No: Systolic Murmur, Gallop/S3 GI/Abdominal Exam: Normal Bowel Sounds, Soft, Non-Tender, No Distention, Other (obese) Extremities: Pedal Edema, Other (Large ulcer base of right great toe medially. No exudate or erythema. Large ulcer medial left heal with no drainage or e rythema. No fluctuance around either wound. small abrasions left great toe). No: Joint Swelling, Increased Warmth - Patient Data Lab Results Last 24 hrs: Laboratory Results - last 24 hr 02/21/20 02/21/20 02/21/20 Range/Units 12:52 13:00 13:00 WBC 20.5 H (4.5-11.0) K/uL RBC 4.77 (4.30-5.90) M/uL Hgb 13.8 (12.0-15.0) g/dL Hct 44.6 (40.0-54.0) % MCV 94 (80-98) fL MCH 29 (27-31) pg MCHC 31 L (32-36) % Plt Count 341 (150-400) K/uL Neut % (Auto) 93 H (36-66) % Lymph % (Auto) 3 L (24-44) % Sumner % (Auto) 4 (2-6) % Eos % (Auto) 0 L (2-4) % Baso % (Auto) 0 (0-1) % Puncture Site Rt brachial ABG pH 7.363 (7.350-7.450) ABG pCO2 40.4 (35.0-42.0) mmHg ABG pO2 101.0 H (75.0-100.0) mmHg ABG HCO3 22.4 (22.0-26.0) mmol/L ABG Total CO2 20.0 L (23.0-27.0) mmol/L ABG O2 Saturation 97.1 (95.0-98.0) % ABG O2 Content 18.6 (15.0-23.0) %vol ABG Base Excess -2.3 mm/L ABG Hemoglobin 13.8 (13.5-18.0) g/dL ABG Oxyhemoglobin 94.9 % ABG Carboxyhemoglobin 1.6 (0.0-1.6) % ABG Methemoglobin 0.7 % Cortes Test N/a O2 Delivery Device Room air Sodium 134 L (140-148) mmol/L Potassium 5.5 H (3.6-5.2) mmol/L Chloride 96 L (100-108) mmol/L Carbon Dioxide 24 (21-32) mmol/L Anion Gap 19.5 H (5.0-14.0) mmol/L BUN 22 H (7-18) mg/dL Creatinine 2.7 H D (0.8-1.3) mg/dL Est Cr Clr Drug Dosing TNP Estimated GFR (MDRD) 24 L (>60) Glucose 215 H (74-106) mg/dL Lactic Acid (0.4-2.0) mmol/L Calcium 8.3 L (8.5-10.1) mg/dL Total Bilirubin 1.1 H D (0.2-1.0) mg/dL AST 62 H (15-37) U/L ALT 45 (12-78) U/L Alkaline Phosphatase 179 H (46-116) U/L Troponin I < 0.017 (0.000-0.056) ng/mL Total Protein 8.6 H (6.4-8.2) g/dL Albumin 3.1 L (3.4-5.0) g/dL Globulin 5.5 H (2.3-3.5) g/dL Albumin/Globulin Ratio 0.6 L (1.2-2.2) Urine Color (YELLOW) Urine Appearance (CLEAR) Urine pH (5.0-8.0) Ur Specific [place] (1.008-1.030) Urine Protein (NEGATIVE) mg/dL Urine Glucose (UA) (NEGATIVE) mg/dL Urine Ketones (NEGATIVE) mg/dL Urine Occult Blood (NEGATIVE) Urine Nitrite (NEGATIVE) Urine Bilirubin (NEGATIVE) Urine Urobilinogen (0.2-1.0) EU/dL Ur Leukocyte Esterase (NEGATIVE) Urine RBC (0-5) Urine WBC (0-5) Ur Epithelial Cells Amorphous Sediment Urine Bacteria Urine Mucus Urine Other SARS Virus RNA (PCR) (NEGATIVE) 02/21/20 02/21/20 02/21/20 Range/Units 13:00 14:28 14:46 WBC (4.5-11.0) K/uL RBC (4.30-5.90) M/uL Hgb (12.0-15.0) g/dL Hct (40.0-54.0) % MCV (80-98) fL MCH (27-31) pg MCHC (32-36) % Plt Count (150-400) K/uL Neut % (Auto) (36-66) % Lymph % (Auto) (24-44) % Sumner % (Auto) (2-6) % Eos % (Auto) (2-4) % Baso % (Auto) (0-1) % Puncture Site ABG pH (7.350-7.450) ABG pCO2 (35.0-42.0) mmHg ABG pO2 (75.0-100.0) mmHg ABG HCO3 (22.0-26.0) mmol/L ABG Total CO2 (23.0-27.0) mmol/L ABG O2 Saturation (95.0-98.0) % ABG O2 Content (15.0-23.0) %vol ABG Base Excess mm/L ABG Hemoglobin (13.5-18.0) g/dL ABG Oxyhemoglobin % ABG Carboxyhemoglobin (0.0-1.6) % ABG Methemoglobin % Cortes Test O2 Delivery Device Sodium (140-148) mmol/L Potassium (3.6-5.2) mmol/L Chloride (100-108) mmol/L Carbon Dioxide (21-32) mmol/L Anion Gap (5.0-14.0) mmol/L BUN (7-18) mg/dL Creatinine (0.8-1.3) mg/dL Est Cr Clr Drug Dosing Estimated GFR (MDRD) (>60) Glucose (74-106) mg/dL Lactic Acid 4.6 H (0.4-2.0) mmol/L Calcium (8.5-10.1) mg/dL Total Bilirubin (0.2-1.0) mg/dL AST (15-37) U/L ALT (12-78) U/L Alkaline Phosphatase (46-116) U/L Troponin I (0.000-0.056) ng/mL Total Protein (6.4-8.2) g/dL Albumin (3.4-5.0) g/dL Globulin (2.3-3.5) g/dL Albumin/Globulin Ratio (1.2-2.2) Urine Color Yellow (YELLOW) Urine Appearance Cloudy A (CLEAR) Urine pH 5.5 (5.0-8.0) Ur Specific [place] 1.025 (1.008-1.030) Urine Protein >=300 H (NEGATIVE) mg/dL Urine Glucose (UA) Negative (NEGATIVE) mg/dL Urine Ketones Negative (NEGATIVE) mg/dL Urine Occult Blood Negative (NEGATIVE) Urine Nitrite Negative (NEGATIVE) Urine Bilirubin Negative (NEGATIVE) Urine Urobilinogen 0.2 (0.2-1.0) EU/dL Ur Leukocyte Esterase Negative (NEGATIVE) Urine RBC 0-5 (0-5) Urine WBC 0-5 (0-5) Ur Epithelial Cells Few Amorphous Sediment Packed Urine Bacteria Not seen Urine Mucus Not seen Urine Other See note SARS Virus RNA (PCR) Negative (NEGATIVE) Result Diagrams: 02/21/20 13:00 02/21/20 13:00 Imaging Impressions Last 24 hrs: CT chest-images personally reviewed-no mass, infiltrate or effusion. heart size normal. obesity. Head CT-images personally reviewed-no acute intracranial findings EKG INTERPRETATION EKG Date: 02/21/20 Rhythm: A-Fib Rate (Beats/Min): 47 Brock: LAD-Left Brock Deviation P-Wave: Variable QRS: Wide ST-T: Normal QT: Normal Comparison: NA - No Prior EKG EKG Interpretation Comments: image personally reviewed Sepsis Event Note - Evaluation Sepsis Screening Result: No Definite Risk Current Stage of Sepsis: Sepsis Possible Source of Sepsis: Skin/Soft Tissue - Focused Exam Sepsis Event Note Statement: Focused Sepsis Exam Completed Vital Signs: Vital Signs Temp Pulse Resp BP Pulse Ox 02/21/20 14:25 50 L 10 L 115/79 96 02/21/20 13:55 48 L 110/83 02/21/20 13:25 36.2 C 48 L 10 L 97/73 98 02/21/20 13:00 35.2 C L 51 L 10 L 112/70 93 L 02/21/20 12:51 36.2 C 54 L 9 L 112/70 95 Respiratory Effort Without Exertion: Dyspneic Heart Sounds: Other (see below) (bradycardia) Capillary Refill, Detail: Less than/Equal to (</=) 2 Seconds Pulse Description: 1+ Thready Peripheral Pulse Location: Radial Skin Exam (Focused Sepsis): Normal Turgor Date Exam was Performed: 02/21/20 Time Exam was Performed: 15:33 *Q Meaningful Use (ADM) - VTE Risk Assess *Q Each Risk Factor Represents 1 Point: Swollen Legs, Current, Obesity ( BMI > 25 kg/m2), Sepsis Total Score 1 Point Risk Factors: 3 Each Risk Factor Represents 2 Points: Age 60 - 74 Years Total Score 2 Point Risk Factors: 2 Each Risk Factor Represents 3 Points: None Total Score 3 Point Risk Factors: 0 Each Risk Factor Represents 5 Points: None Total Score 5 Point Risk Factors: 0 Venous Thromboembolism Risk Factor Score *Q: 5 - Problem List (1) Acute kidney injury SNOMED Code(s): 52191422, 66255508 ICD Code: N17.9 - ACUTE KIDNEY FAILURE, UNSPECIFIED Status: Acute Current Visit: Yes (2) Diabetic foot ulcer SNOMED Code(s): 506444576 ICD Code: E11.621 - TYPE 2 DIABETES MELLITUS WITH FOOT ULCER; L97.509 - NON- PRESSURE CHRONIC ULCER OTH PRT UNSP FOOT W UNSP SEVERITY Status: Acute Current Visit: Yes Qualifiers: Diabetic foot ulcer location: heel Diabetes mellitus type: type 2 Laterality: left Non-pressure ulcer stage: with fat layer exposed Qualified Code(s): E11.621 - Type 2 diabetes mellitus with foot ulcer; L97.422 - Non- pressure chronic ulcer of left heel and midfoot with fat layer exposed (3) Diabetic foot ulcers SNOMED Code(s): 827559211 ICD Code: E11.621 - TYPE 2 DIABETES MELLITUS WITH FOOT ULCER; L97.509 - NON- PRESSURE CHRONIC ULCER OTH PRT UNSP FOOT W UNSP SEVERITY Status: Acute Current Visit: No Qualifiers: Diabetic foot ulcer location: toe Diabetes mellitus type: type 2 Laterality: right Non-pressure ulcer stage: with fat layer exposed Qualified Code(s): E11.621 - Type 2 diabetes mellitus with foot ulcer; L97.512 - Non- pressure chronic ulcer of other part of right foot with fat layer exposed (4) Sepsis SNOMED Code(s): 89090956 ICD Code: A41.9 - SEPSIS, UNSPECIFIED ORGANISM Status: Acute Current Visit: Yes Qualifiers: Sepsis type: sepsis due to unspecified organism Sepsis acute organ dysf unction status: with acute organ dysfunction Severe sepsis acute organ dy sfunction type: acute renal failure Acute renal failure type: with acute renal cortical necrosis Severe sepsis shock status: without septic shock Qualified Code(s): A41.9 - Sepsis, unspecified organism; R65.20 - Severe sepsis without septic shock; N17.1 - Acute kidney failure with acute cortical necrosis (5) Hyperkalemia SNOMED Code(s): 24773809 ICD Code: E87.5 - HYPERKALEMIA Status: Acute Current Visit: Yes (6) Atrial fibrillation SNOMED Code(s): 59862571 ICD Code: I48.91 - UNSPECIFIED ATRIAL FIBRILLATION Status: Chronic Current Visit: Yes Qualifiers: Atrial fibrillation type: paroxysmal Qualified Code(s): I48.0 - Paroxysmal atrial fibrillation (7) Morbid obesity with BMI of 50.0-59.9, adult SNOMED Code(s): 455336468, 93401465613638 ICD Code: E66.01 - MORBID (SEVERE) OBESITY DUE TO EXCESS CALORIES; Z68.43 - BODY MASS INDEX (BMI) 50.0-59.9, ADULT Status: Chronic Current Visit: Yes Problem List Initiated/Reviewed/Updated: Yes Orders Last 24hrs: Active Orders 24 hr Category Date Time Status Patient Status Manage Transfer [TRANSFER] Routine ADT 02/21/20 15:02 Ordered EKG Documentation Completion [RC] ASDIRECTED Care 02/21/20 12:56 Active Insert Thompson Catheter [Insert Urinary Catheter] [OM.PC] Care 02/21/20 14:15 Ordered Q24H Urinary Catheter Assessment [RC] ASDIRECTED Care 02/21/20 14:11 Active Foot Comp Min 3V Lt [CR] Stat Exams 02/21/20 15:00 Ordered CULTURE BLOOD [BC] Urgent Lab 02/21/20 13:48 Received CULTURE BLOOD [BC] Urgent Lab 02/21/20 14:04 Received DRUG SCREEN, URINE [URCHEM] Stat Lab 02/21/20 15:01 Ordered Sodium Chloride 0.9% [Normal Saline] 1,000 ml Med 02/21/20 13:45 Active IV ASDIRECTED Sodium Chloride 0.9% [Normal Saline] 1,000 ml Med 02/21/20 15:00 Active IV ASDIRECTED Vancomycin 2 gm Med 02/21/20 14:30 Active Sodium Chloride 0.9% [Normal Saline] 500 ml IV ONETIME Blood Culture x2 Reflex Set [OM.PC] Urgent Oth 02/21/20 13:31 Ordered Resuscitation Status Routine Resus Stat 02/21/20 15:05 Ordered EKG 12 Lead [EK] Routine Ther 02/21/20 12:56 Ordered Medication Orders Sodium Chloride (Normal Saline) 1,000 mls @ 1,000 mls/hr IV ASDIRECTED [facility] Last Admin: 02/21/20 13:52 Dose: 1,000 mls/hr Documented by: YIFAN Vancomycin HCl 2 gm/ Sodium (Chloride) 500 mls @ 250 mls/hr IV ONETIME ONE Stop: 02/21/20 16:29 Last Admin: 02/21/20 14:23 Dose: 250 mls/hr Documented by: YIFAN Sodium Chloride (Normal Saline) 1,000 mls @ 700 mls/hr IV ASDIRECTED [facility] Stop: 02/21/20 16:26 Last Admin: 02/21/20 15:13 Dose: 700 mls/hr Documented by: YIFAN Assessment/Plan Comment:: ASSESSMENT AND PLAN - Sepsis-I suspect 1 of his diabetic foot ulcers or potentially both are his source of infection. He has significant leukocytosis and lactic acid was greater than 4. I did not find any areas of erythema or fluctuance on my examination. Left foot x-ray is pending. Urine was clear. Chest was clear. Head CT unremarkable. Examination otherwise benign. Cultures have been obtained and broad-spectrum antibiotics administered. He has only received about half of this 30 mL/kg bolus because of his history of congestive heart failure and sensitivity to fluid. He is not currently hypotensive or tachycardic. Any additional fluid boluses will be administered based on lactic acid level which will be collected every 4 hours. -Follow-up left foot x-ray -Consider additional imaging of both feet -Continue vancomycin and meropenem -Follow-up cultures -Serial lactic acid levels Acute kidney injury-creatinine significantly elevated from baseline in the set ting of sepsis. -Management as above with labs in the morning Hyperkalemia-mild, probably associated with the acute kidney injury and should improve with fluids. -Repeat level in the morning History of congestive heart failure-compensated at this time but at high risk for decompensation if too aggressive of a volume resuscitation is undertaken. -Restart beta-dann and additional management as able/needed Atrial fibrillation-unclear duration, currently rate controlled. -Hold beta-dann and calcium channel dann at this time Type 2 diabetes mellitus with complications-mild elevation of blood sugar. Recent hemoglobin A1c was 7. -Hold metformin -Low-dose sliding scale Morbid obesity with BMI greater than 50 Maintenance issues - - DVT prophylaxis -enoxaparin - GI prophylaxis -PPI - Nutrition -nothing by mouth until he wakes up - Thompson catheter -placed in the emergency room for strict intake and output monitoring in a critical patient CODE STATUS -DNR/DNI per advanced directive Admission justification -this patient will be admitted for inpatient services and is medically appropriate meeting medical necessity for inpatient admission as outlined in my documentation. I reasonably expect the patient will require inpatient services that span a period time over 2 midnights. I reasonably expect this patient to be discharged or transferred within 96 hours after admission to the [facility]. Disposition -I would anticipate discharge home after the hospital stay Primary care physician - Warren Moran M.D. - Mortality Measure Prognosis:: Good
[2020-02-21] MEDS ORDERED: Acetaminophen 325 MG Tab PO PRN (15:47)
[2020-02-21] MEDS ORDERED: Ondansetron 4 MG Tab.DIS PO PRN (15:47)
[2020-02-21] MEDS ORDERED: Magnesium Hydroxide 400 MG/5 ML Susp 30 ML Cup PO PRN (15:47)
[2020-02-21] MEDS ORDERED: Albuterol 0.083% 2.5 MG/3 ML Neb Soln NEB PRN (15:47)
[2020-02-21] MEDS ORDERED: Ondansetron 4 MG/2 ML SDV IV PRN (15:47)
[2020-02-21] MEDS: Sodium Chloride 0.9% 1,000 ML IV SCH (16:05)
[2020-02-21] MEDS: Insulin Lispro 100 Unit/ML 3 ML KwikPen SUBCUT SCH (17:54)
[2020-02-21] MEDS ORDERED: Haloperidol Lactate 5 MG/ML SDV ONE (20:16)
[2020-02-21] MEDS ORDERED: Haloperidol Lactate 5 MG/ML SDV IVPUSH STA (20:18)
[2020-02-21] MEDS: LORazepam 2 MG/ML SDV IVPUSH PRN (20:30)
[2020-02-21] MEDS: Lactobacillus Rhamnosus GG (Probiotic) Cap PO SCH (20:42)
[2020-02-21] MEDS ORDERED: Nystatin Topical Powder 15 GM Bottle TOP SCH (21:00)
[2020-02-21] MEDS ORDERED: Sodium Chloride 0.9% 500 ML IV ONE (21:02)
[2020-02-21] MEDS ORDERED: Sodium Chloride 0.9% 1,000 ML IV STA (22:13)
[2020-02-22] MEDS: Insulin Lispro 100 Unit/ML 3 ML KwikPen SUBCUT SCH ×4 (00:06→17:55)
[2020-02-22] MEDS: Meropenem 500 MG in Sodium Chloride 0.9% 50 ML IV SCH ×2 (01:56→13:48)
[2020-02-22] MEDS: Sodium Chloride 0.9% 1,000 ML IV SCH ×3 (03:41→19:57)
[2020-02-22] MEDS ORDERED: Enoxaparin 30 MG/0.3 ML Syringe SUBCUT SCH (09:00)
[2020-02-22] MEDS: Nystatin Topical Powder 15 GM Bottle TOP SCH ×3 (10:24→20:27)
--- NOTE | 2020-02-22 11:30 | CR ---
FOOT RIGHT 3 views CLINICAL HISTORY:Evaluate for osteomyelitis ulcer FINDINGS:There is moderate diffuse soft tissue swelling of the forefoot and toes. There is severe osteoarthritic change in the first MTP joint with moderate changes in the interphalangeal joints. No sujit bone destruction is identified. 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 No bony destruction
--- NOTE | 2020-02-22 12:11 | PCM.PN ---
- General Info Date of Service: 02/22/20 Subjective Update: Mr. Conrad is a 64-year-old gentleman who was admitted through the emergency department with lethargy, weakness, fever and sepsis. He did become more agitated last night received Haldol as well as lorazepam, this morning he is fairly sedated. Evaluation for source of infection was unremarkable except for bilateral foot ulcerations. He is lethargic and unable to provide meaningful history concerning recent symptoms or review of systems. - Patient Data Vitals - Most Recent: Last Vital Signs Temp 98.4 F 02/22/20 11:00 Pulse 79 02/22/20 11:48 Resp 12 02/22/20 11:48 BP 154/94 H 02/22/20 11:48 Pulse Ox 95 02/22/20 11:48 Weight - Most Recent: 351 lb 9.6 oz I&O - Last 24 Hours: Intake & Output 02/21/20 02/22/20 02/22/20 22:59 06:59 14:59 Intake Total 2464 2457 Output Total 460 170 525 Balance 2003 2287 -525 Lab Results Last 24 Hours: Laboratory Results - last 24 hr 02/21/20 02/21/20 02/21/20 Range/Units 12:52 13:00 13:00 WBC 20.5 H (4.5-11.0) K/uL RBC 4.77 (4.30-5.90) M/uL Hgb 13.8 (12.0-15.0) g/dL Hct 44.6 (40.0-54.0) % MCV 94 (80-98) fL MCH 29 (27-31) pg MCHC 31 L (32-36) % Plt Count 341 (150-400) K/uL Neut % (Auto) 93 H (36-66) % Lymph % (Auto) 3 L (24-44) % [place] % (Auto) 4 (2-6) % Eos % (Auto) 0 L (2-4) % Baso % (Auto) 0 (0-1) % PT (9.5-12.0) sec INR (0.80-1.20) Puncture Site Rt brachial ABG pH 7.363 (7.350-7.450) ABG pCO2 40.4 (35.0-42.0) mmHg ABG pO2 101.0 H (75.0-100.0) mmHg ABG HCO3 22.4 (22.0-26.0) mmol/L ABG Total CO2 20.0 L (23.0-27.0) mmol/L ABG O2 Saturation 97.1 (95.0-98.0) % ABG O2 Content 18.6 (15.0-23.0) %vol ABG Base Excess -2.3 mm/L ABG Hemoglobin 13.8 (13.5-18.0) g/dL ABG Oxyhemoglobin 94.9 % ABG Carboxyhemoglobin 1.6 (0.0-1.6) % ABG Methemoglobin 0.7 % Cortes Test N/a O2 Delivery Device Room air Sodium 134 L (140-148) mmol/L Potassium 5.5 H (3.6-5.2) mmol/L Chloride 96 L (100-108) mmol/L Carbon Dioxide 24 (21-32) mmol/L Anion Gap 19.5 H (5.0-14.0) mmol/L BUN 22 H (7-18) mg/dL Creatinine 2.7 H D (0.8-1.3) mg/dL Est Cr Clr Drug Dosing TNP Estimated GFR (MDRD) 24 L (>60) Glucose 215 H (74-106) mg/dL Lactic Acid (0.4-2.0) mmol/L Calcium 8.3 L (8.5-10.1) mg/dL Magnesium (1.8-2.4) mg/dL Total Bilirubin 1.1 H D (0.2-1.0) mg/dL AST 62 H (15-37) U/L ALT 45 (12-78) U/L Alkaline Phosphatase 179 H (46-116) U/L Troponin I < 0.017 (0.000-0.056) ng/mL Total Protein 8.6 H (6.4-8.2) g/dL Albumin 3.1 L (3.4-5.0) g/dL Globulin 5.5 H (2.3-3.5) g/dL Albumin/Globulin Ratio 0.6 L (1.2-2.2) Urine Color (YELLOW) Urine Appearance (CLEAR) Urine pH (5.0-8.0) Ur Specific [place] (1.008-1.030) Urine Protein (NEGATIVE) mg/dL Urine Glucose (UA) (NEGATIVE) mg/dL Urine Ketones (NEGATIVE) mg/dL Urine Occult Blood (NEGATIVE) Urine Nitrite (NEGATIVE) Urine Bilirubin (NEGATIVE) Urine Urobilinogen (0.2-1.0) EU/dL Ur Leukocyte Esterase (NEGATIVE) Urine RBC (0-5) Urine WBC (0-5) Ur Epithelial Cells Amorphous Sediment Urine Bacteria Urine Mucus Urine Other Urine Opiates Screen (NEGATIVE) Ur Oxycodone Screen (NEGATIVE) Urine Methadone Screen (NEGATIVE) Ur Propoxyphene Screen (NEGATIVE) Ur Barbiturates Screen (NEGATIVE) Ur Tricyclics Screen (NEGATIVE) Ur Phencyclidine Scrn (NEGATIVE) Ur Amphetamine Screen (NEGATIVE) U Methamphetamines Scrn (NEGATIVE) Urine MDMA Screen (NEGATIVE) U Benzodiazepines Scrn (NEGATIVE) U Cocaine Metab Screen (NEGATIVE) U Marijuana (THC) Screen (NEGATIVE) SARS Virus RNA (PCR) (NEGATIVE) 02/21/20 02/21/20 02/21/20 Range/Units 13:00 14:28 14:46 WBC (4.5-11.0) K/uL RBC (4.30-5.90) M/uL Hgb (12.0-15.0) g/dL Hct (40.0-54.0) % MCV (80-98) fL MCH (27-31) pg MCHC (32-36) % Plt Count (150-400) K/uL Neut % (Auto) (36-66) % Lymph % (Auto) (24-44) % [place] % (Auto) (2-6) % Eos % (Auto) (2-4) % Baso % (Auto) (0-1) % PT (9.5-12.0) sec INR (0.80-1.20) Puncture Site ABG pH (7.350-7.450) ABG pCO2 (35.0-42.0) mmHg ABG pO2 (75.0-100.0) mmHg ABG HCO3 (22.0-26.0) mmol/L ABG Total CO2 (23.0-27.0) mmol/L ABG O2 Saturation (95.0-98.0) % ABG O2 Content (15.0-23.0) %vol ABG Base Excess mm/L ABG Hemoglobin (13.5-18.0) g/dL ABG Oxyhemoglobin % ABG Carboxyhemoglobin (0.0-1.6) % ABG Methemoglobin % Cortes Test O2 Delivery Device Sodium (140-148) mmol/L Potassium (3.6-5.2) mmol/L Chloride (100-108) mmol/L Carbon Dioxide (21-32) mmol/L Anion Gap (5.0-14.0) mmol/L BUN (7-18) mg/dL Creatinine (0.8-1.3) mg/dL Est Cr Clr Drug Dosing Estimated GFR (MDRD) (>60) Glucose (74-106) mg/dL Lactic Acid 4.6 H (0.4-2.0) mmol/L Calcium (8.5-10.1) mg/dL Magnesium (1.8-2.4) mg/dL Total Bilirubin (0.2-1.0) mg/dL AST (15-37) U/L ALT (12-78) U/L Alkaline Phosphatase (46-116) U/L Troponin I (0.000-0.056) ng/mL Total Protein (6.4-8.2) g/dL Albumin (3.4-5.0) g/dL Globulin (2.3-3.5) g/dL Albumin/Globulin Ratio (1.2-2.2) Urine Color Yellow (YELLOW) Urine Appearance Cloudy A (CLEAR) Urine pH 5.5 (5.0-8.0) Ur Specific [place] 1.025 (1.008-1.030) Urine Protein >=300 H (NEGATIVE) mg/dL Urine Glucose (UA) Negative (NEGATIVE) mg/dL Urine Ketones Negative (NEGATIVE) mg/dL Urine Occult Blood Negative (NEGATIVE) Urine Nitrite Negative (NEGATIVE) Urine Bilirubin Negative (NEGATIVE) Urine Urobilinogen 0.2 (0.2-1.0) EU/dL Ur Leukocyte Esterase Negative (NEGATIVE) Urine RBC 0-5 (0-5) Urine WBC 0-5 (0-5) Ur Epithelial Cells Few Amorphous Sediment Packed Urine Bacteria Not seen Urine Mucus Not seen Urine Other See note Urine Opiates Screen (NEGATIVE) Ur Oxycodone Screen (NEGATIVE) Urine Methadone Screen (NEGATIVE) Ur Propoxyphene Screen (NEGATIVE) Ur Barbiturates Screen (NEGATIVE) Ur Tricyclics Screen (NEGATIVE) Ur Phencyclidine Scrn (NEGATIVE) Ur Amphetamine Screen (NEGATIVE) U Methamphetamines Scrn (NEGATIVE) Urine MDMA Screen (NEGATIVE) U Benzodiazepines Scrn (NEGATIVE) U Cocaine Metab Screen (NEGATIVE) U Marijuana (THC) Screen (NEGATIVE) SARS Virus RNA (PCR) Negative (NEGATIVE) 02/21/20 02/21/20 02/21/20 Range/Units 15:01 18:00 22:00 WBC (4.5-11.0) K/uL RBC (4.30-5.90) M/uL Hgb (12.0-15.0) g/dL Hct (40.0-54.0) % MCV (80-98) fL MCH (27-31) pg MCHC (32-36) % Plt Count (150-400) K/uL Neut % (Auto) (36-66) % Lymph % (Auto) (24-44) % [place] % (Auto) (2-6) % Eos % (Auto) (2-4) % Baso % (Auto) (0-1) % PT (9.5-12.0) sec INR (0.80-1.20) Puncture Site ABG pH (7.350-7.450) ABG pCO2 (35.0-42.0) mmHg ABG pO2 (75.0-100.0) mmHg ABG HCO3 (22.0-26.0) mmol/L ABG Total CO2 (23.0-27.0) mmol/L ABG O2 Saturation (95.0-98.0) % ABG O2 Content (15.0-23.0) %vol ABG Base Excess mm/L ABG Hemoglobin (13.5-18.0) g/dL ABG Oxyhemoglobin % ABG Carboxyhemoglobin (0.0-1.6) % ABG Methemoglobin % Cortes Test O2 Delivery Device Sodium (140-148) mmol/L Potassium (3.6-5.2) mmol/L Chloride (100-108) mmol/L Carbon Dioxide (21-32) mmol/L Anion Gap (5.0-14.0) mmol/L BUN (7-18) mg/dL Creatinine (0.8-1.3) mg/dL Est Cr Clr Drug Dosing Estimated GFR (MDRD) (>60) Glucose (74-106) mg/dL Lactic Acid 3.4 H 2.7 H (0.4-2.0) mmol/L Calcium (8.5-10.1) mg/dL Magnesium (1.8-2.4) mg/dL Total Bilirubin (0.2-1.0) mg/dL AST (15-37) U/L ALT (12-78) U/L Alkaline Phosphatase (46-116) U/L Troponin I (0.000-0.056) ng/mL Total Protein (6.4-8.2) g/dL Albumin (3.4-5.0) g/dL Globulin (2.3-3.5) g/dL Albumin/Globulin Ratio (1.2-2.2) Urine Color (YELLOW) Urine Appearance (CLEAR) Urine pH (5.0-8.0) Ur Specific [place] (1.008-1.030) Urine Protein (NEGATIVE) mg/dL Urine Glucose (UA) (NEGATIVE) mg/dL Urine Ketones (NEGATIVE) mg/dL Urine Occult Blood (NEGATIVE) Urine Nitrite (NEGATIVE) Urine Bilirubin (NEGATIVE) Urine Urobilinogen (0.2-1.0) EU/dL Ur Leukocyte Esterase (NEGATIVE) Urine RBC (0-5) Urine WBC (0-5) Ur Epithelial Cells Amorphous Sediment Urine Bacteria Urine Mucus Urine Other Urine Opiates Screen Negative (NEGATIVE) Ur Oxycodone Screen Negative (NEGATIVE) Urine Methadone Screen Negative (NEGATIVE) Ur Propoxyphene Screen Negative (NEGATIVE) Ur Barbiturates Screen Negative (NEGATIVE) Ur Tricyclics Screen Presumptive positive H (NEGATIVE) Ur Phencyclidine Scrn Negative (NEGATIVE) Ur Amphetamine Screen Negative (NEGATIVE) U Methamphetamines Scrn Negative (NEGATIVE) Urine MDMA Screen Negative (NEGATIVE) U Benzodiazepines Scrn Negative (NEGATIVE) U Cocaine Metab Screen Negative (NEGATIVE) U Marijuana (THC) Screen Negative (NEGATIVE) SARS Virus RNA (PCR) (NEGATIVE) 02/22/20 02/22/20 02/22/20 Range/Units 02:20 05:50 05:50 WBC 16.6 H (4.5-11.0) K/uL RBC 4.24 L (4.30-5.90) M/uL Hgb 12.2 (12.0-15.0) g/dL Hct 39.7 L (40.0-54.0) % MCV 94 (80-98) fL MCH 29 (27-31) pg MCHC 31 L (32-36) % Plt Count 279 (150-400) K/uL Neut % (Auto) (36-66) % Lymph % (Auto) (24-44) % [place] % (Auto) (2-6) % Eos % (Auto) (2-4) % Baso % (Auto) (0-1) % PT (9.5-12.0) sec INR (0.80-1.20) Puncture Site ABG pH (7.350-7.450) ABG pCO2 (35.0-42.0) mmHg ABG pO2 (75.0-100.0) mmHg ABG HCO3 (22.0-26.0) mmol/L ABG Total CO2 (23.0-27.0) mmol/L ABG O2 Saturation (95.0-98.0) % ABG O2 Content (15.0-23.0) %vol ABG Base Excess mm/L ABG Hemoglobin (13.5-18.0) g/dL ABG Oxyhemoglobin % ABG Carboxyhemoglobin (0.0-1.6) % ABG Methemoglobin % Cortes Test O2 Delivery Device Sodium 138 L (140-148) mmol/L Potassium 4.9 (3.6-5.2) mmol/L Chloride 102 (100-108) mmol/L Carbon Dioxide 25 (21-32) mmol/L Anion Gap 15.9 H (5.0-14.0) mmol/L BUN 25 H (7-18) mg/dL Creatinine 2.7 H (0.8-1.3) mg/dL Est Cr Clr Drug Dosing 25.44 Estimated GFR (MDRD) 24 L (>60) Glucose 152 H (74-106) mg/dL Lactic Acid 1.9 (0.4-2.0) mmol/L Calcium 7.6 L (8.5-10.1) mg/dL Magnesium 1.4 L (1.8-2.4) mg/dL Total Bilirubin 0.8 (0.2-1.0) mg/dL AST 43 H (15-37) U/L ALT 36 (12-78) U/L Alkaline Phosphatase 150 H (46-116) U/L Troponin I (0.000-0.056) ng/mL Total Protein 7.4 (6.4-8.2) g/dL Albumin 2.6 L (3.4-5.0) g/dL Globulin 4.8 H (2.3-3.5) g/dL Albumin/Globulin Ratio 0.5 L (1.2-2.2) Urine Color (YELLOW) Urine Appearance (CLEAR) Urine pH (5.0-8.0) Ur Specific [place] (1.008-1.030) Urine Protein (NEGATIVE) mg/dL Urine Glucose (UA) (NEGATIVE) mg/dL Urine Ketones (NEGATIVE) mg/dL Urine Occult Blood (NEGATIVE) Urine Nitrite (NEGATIVE) Urine Bilirubin (NEGATIVE) Urine Urobilinogen (0.2-1.0) EU/dL Ur Leukocyte Esterase (NEGATIVE) Urine RBC (0-5) Urine WBC (0-5) Ur Epithelial Cells Amorphous Sediment Urine Bacteria Urine Mucus Urine Other Urine Opiates Screen (NEGATIVE) Ur Oxycodone Screen (NEGATIVE) Urine Methadone Screen (NEGATIVE) Ur Propoxyphene Screen (NEGATIVE) Ur Barbiturates Screen (NEGATIVE) Ur Tricyclics Screen (NEGATIVE) Ur Phencyclidine Scrn (NEGATIVE) Ur Amphetamine Screen (NEGATIVE) U Methamphetamines Scrn (NEGATIVE) Urine MDMA Screen (NEGATIVE) U Benzodiazepines Scrn (NEGATIVE) U Cocaine Metab Screen (NEGATIVE) U Marijuana (THC) Screen (NEGATIVE) SARS Virus RNA (PCR) (NEGATIVE) 02/22/20 02/22/20 Range/Units 05:50 05:50 WBC (4.5-11.0) K/uL RBC (4.30-5.90) M/uL Hgb (12.0-15.0) g/dL Hct (40.0-54.0) % MCV (80-98) fL MCH (27-31) pg MCHC (32-36) % Plt Count (150-400) K/uL Neut % (Auto) (36-66) % Lymph % (Auto) (24-44) % [place] % (Auto) (2-6) % Eos % (Auto) (2-4) % Baso % (Auto) (0-1) % PT 16.8 H (9.5-12.0) sec INR 1.55 H (0.80-1.20) Puncture Site ABG pH (7.350-7.450) ABG pCO2 (35.0-42.0) mmHg ABG pO2 (75.0-100.0) mmHg ABG HCO3 (22.0-26.0) mmol/L ABG Total CO2 (23.0-27.0) mmol/L ABG O2 Saturation (95.0-98.0) % ABG O2 Content (15.0-23.0) %vol ABG Base Excess mm/L ABG Hemoglobin (13.5-18.0) g/dL ABG Oxyhemoglobin % ABG Carboxyhemoglobin (0.0-1.6) % ABG Methemoglobin % Crotes Test O2 Delivery Device Sodium (140-148) mmol/L Potassium (3.6-5.2) mmol/L Chloride (100-108) mmol/L Carbon Dioxide (21-32) mmol/L Anion Gap (5.0-14.0) mmol/L BUN (7-18) mg/dL Creatinine (0.8-1.3) mg/dL Est Cr Clr Drug Dosing Estimated GFR (MDRD) (>60) Glucose (74-106) mg/dL Lactic Acid 1.6 (0.4-2.0) mmol/L Calcium (8.5-10.1) mg/dL Magnesium (1.8-2.4) mg/dL Total Bilirubin (0.2-1.0) mg/dL AST (15-37) U/L ALT (12-78) U/L Alkaline Phosphatase (46-116) U/L Troponin I (0.000-0.056) ng/mL Total Protein (6.4-8.2) g/dL Albumin (3.4-5.0) g/dL Globulin (2.3-3.5) g/dL Albumin/Globulin Ratio (1.2-2.2) Urine Color (YELLOW) Urine Appearance (CLEAR) Urine pH (5.0-8.0) Ur Specific [place] (1.008-1.030) Urine Protein (NEGATIVE) mg/dL Urine Glucose (UA) (NEGATIVE) mg/dL Urine Ketones (NEGATIVE) mg/dL Urine Occult Blood (NEGATIVE) Urine Nitrite (NEGATIVE) Urine Bilirubin (NEGATIVE) Urine Urobilinogen (0.2-1.0) EU/dL Ur Leukocyte Esterase (NEGATIVE) Urine RBC (0-5) Urine WBC (0-5) Ur Epithelial Cells Amorphous Sediment Urine Bacteria Urine Mucus Urine Other Urine Opiates Screen (NEGATIVE) Ur Oxycodone Screen (NEGATIVE) Urine Methadone Screen (NEGATIVE) Ur Propoxyphene Screen (NEGATIVE) Ur Barbiturates Screen (NEGATIVE) Ur Tricyclics Screen (NEGATIVE) Ur Phencyclidine Scrn (NEGATIVE) Ur Amphetamine Screen (NEGATIVE) U Methamphetamines Scrn (NEGATIVE) Urine MDMA Screen (NEGATIVE) U Benzodiazepines Scrn (NEGATIVE) U Cocaine Metab Screen (NEGATIVE) U Marijuana (THC) Screen (NEGATIVE) SARS Virus RNA (PCR) (NEGATIVE) Med Orders - Current: Current Medications Acetaminophen (Tylenol) 650 mg PO Q4H PRN PRN Reason: Pain (Mild 1-3)/fever Albuterol (Proventil Neb Soln) 2.5 mg NEB Q4H PRN PRN Reason: Shortness Of Breath/wheezing Enoxaparin Sodium (Lovenox) 30 mg SUBCUT DAILY [facility] Last Admin: 02/22/20 10:24 Dose: 30 mg Documented by: Sodium Chloride (Normal Saline) 1,000 mls @ 125 mls/hr IV ASDIRECTED [facility] Last Admin: 02/22/20 11:41 Dose: 125 mls/hr Documented by: Vancomycin HCl 2 gm/ Sodium (Chloride) 500 mls @ 250 mls/hr IV Q24H JENISE Meropenem 500 mg/ Sodium (Chloride) 50 mls @ 100 mls/hr IV Q12H [facility] Last Admin: 02/22/20 01:56 Dose: 100 mls/hr Documented by: Magnesium Sulfate 2 gm/ Premix 50 mls @ 25 mls/hr IV Q6H [facility] Stop: 02/23/20 01:59 Insulin Human Lispro (Humalog) 0 unit SUBCUT Q6H [facility]; Protocol Last Admin: 02/22/20 05:50 Dose: 1 unit Documented by: Lactobacillus Rhamnosus (Culturelle) 1 cap PO BID [facility] Last Admin: 02/21/20 20:42 Dose: Not Given Documented by: Lorazepam (Ativan) 0.5 mg IVPUSH Q4H PRN PRN Reason: Nausea/Vomiting Last Admin: 02/21/20 20:30 Dose: 2 mg Documented by: Magnesium Hydroxide (Milk Of Magnesia) 30 ml PO Q12H PRN PRN Reason: Constipation Magnesium Oxide (Magnesium Oxide) 400 mg PO BID [facility] Nystatin (Nystop) 0 gm TOP TID [facility] Last Admin: 02/22/20 10:24 Dose: 1 applic Documented by: Ondansetron HCl (Zofran) 4 mg IV Q6H PRN PRN Reason: Nausea/Vomiting Last Admin: 02/21/20 18:08 Dose: 4 mg Documented by: Ondansetron HCl (Zofran Odt) 4 mg PO Q6H PRN PRN Reason: Nausea able to take PO Pantoprazole Sodium (Protonix) 40 mg PO ACBREAKFAST [facility] Senna/Docusate Sodium (Senna Plus) 1 tab PO BID PRN PRN Reason: Constipation Warfarin Sodium (Coumadin) 2.5 mg PO DAILY@1300 JENISE Discontinued Medications Haloperidol Lactate (Haldol) Confirm Administered Dose 10 mg .ROUTE .STK-MED ONE Stop: 02/21/20 20:17 Last Admin: 02/21/20 20:30 Dose: 10 mg Documented by: Haloperidol Lactate (Haldol) 10 mg IVPUSH ONETIME STA Stop: 02/21/20 20:19 Last Admin: 02/21/20 20:42 Dose: Not Given Documented by: Sodium Chloride (Normal Saline) 1,000 mls @ 1,000 mls/hr IV ASDIRECTED [facility] Last Admin: 02/21/20 13:52 Dose: 1,000 mls/hr Documented by: Vancomycin HCl 1 gm/ Sodium (Chloride) 250 mls @ 150 mls/hr IV ONETIME ONE Stop: 02/21/20 15:21 Last Admin: 02/21/20 16:43 Dose: Not Given Documented by: Vancomycin HCl 2 gm/ Sodium (Chloride) 500 mls @ 250 mls/hr IV ONETIME ONE Stop: 02/21/20 16:29 Last Admin: 02/21/20 14:23 Dose: 250 mls/hr Documented by: Meropenem 1 gm/ Sodium (Chloride) 100 mls @ 200 mls/hr IV ONETIME ONE Stop: 02/21/20 14:59 Last Admin: 02/21/20 14:22 Dose: 200 mls/hr Documented by: Sodium Chloride (Normal Saline) 1,000 mls @ 700 mls/hr IV ASDIRECTED JENISE Stop: 02/21/20 16:26 Last Admin: 02/21/20 15:13 Dose: 700 mls/hr Documented by: Sodium Chloride (Normal Saline) 500 mls @ 500 mls/hr IV .BOLUS ONE Stop: 02/21/20 22:01 Last Admin: 02/21/20 21:15 Dose: 500 mls/hr Documented by: Sodium Chloride (Normal Saline) 1,000 mls @ 500 mls/hr IV STAT STA Stop: 02/22/20 00:12 Last Admin: 02/21/20 22:15 Dose: 500 mls/hr Documented by: Nystatin (Nystop) 1 gm TOP TID JENISE Last Admin: 02/21/20 21:45 Dose: 1 applic Documented by: - Exam General: Sedated, Lethargic Lungs: Clear to Auscultation, Normal Respiratory Effort Cardiovascular: Regular Rate, Regular Rhythm, No Murmurs GI/Abdominal Exam: Soft, Non-Tender, No Organomegaly, No Distention Extremities: Other (Ulceration medial aspect of his left heel and medial aspect of the right first MTP joint.) Sepsis Event Note - Evaluation Sepsis Screening Result: No Definite Risk - Focused Exam Vital Signs: Vital Signs Temp Pulse Resp BP Pulse Ox 02/22/20 11:48 79 12 154/94 H 95 02/22/20 11:00 98.4 F 83 11 L 161/88 H 97 02/22/20 10:00 78 10 L 96 02/22/20 09:00 70 7 L 137/63 97 02/22/20 08:00 98 F 76 9 L 124/54 L 96 02/22/20 07:00 70 12 153/121 H 96 02/22/20 06:00 69 11 L 143/80 H 97 02/22/20 05:00 67 8 L 143/80 H 96 02/22/20 04:00 65 8 L 135/58 L 95 02/22/20 03:00 98.3 F 70 7 L 121/36 L 98 02/22/20 02:00 97.9 F 70 14 120/97 H 96 02/22/20 00:59 97.8 F 59 L 11 L 115/64 100 Date Exam was Performed: 02/22/20 Time Exam was Performed: 12:05 - Problem List Review Problem List Initiated/Reviewed/Updated: Yes - My Orders Last 24 Hours: My Active Orders 02/22/20 09:57 Foot wo Cont Lt [MR] Urgent Foot wo Cont Rt [MR] Urgent 02/22/20 10:00 Consult to Physician [CONS] Urgent 02/22/20 10:04 Notify Provider Consults [RC] ASDIRECTED 02/22/20 11:58 Foot wo Cont Lt [CT] Routine Foot wo Cont Rt [CT] Routine 02/22/20 12:00 Magnesium Oxide 400 mg PO BID Magnesium Sulfate/Water [Magnesium Sulfate in Water Premix] 2 gm Premix Bag 1 bag IV Q6H 02/22/20 13:00 Warfarin [Coumadin] 2.5 mg PO DAILY@1300 02/23/20 05:00 CBC WITH AUTO DIFF [HEME] Timed COMPREHENSIVE METABOLIC PN,CMP [CHEM] Timed MAGNESIUM [CHEM] Timed 02/23/20 05:11 INR,PT,PROTHROMBIN TIME [COAG] AM - Plan Plan:: ASSESSMENT AND PLAN - Sepsis-secondary to ulcerations on the feet, he has significant leukocytosis and lactic acid was greater than 4. Urine was clear. Chest was clear. Head CT unremarkable. Examination otherwise benign. Cultures have been obtained and broad-spectrum antibiotics administered. X-ray of the left foot shows no obvious osteomyelitis -CT scan of both feet, MRI not obtainable because of patient's size -Continue vancomycin and meropenem -Follow-up cultures Acute kidney injury-creatinine significantly elevated from baseline in the setting of sepsis. Creatinine is stable from admission with no improvement noted thus far -Management as above with labs in the morning Hyperkalemia-resolved -Repeat level in the morning History of congestive heart failure-compensated at this time but at high risk for decompensation if too aggressive of a volume resuscitation is undertaken. -Restart beta-dann and additional management as able/needed Atrial fibrillation-unclear duration, currently rate controlled. INR is subtherapeutic -Hold beta-dann and calcium channel dann at this time -Warfarin 2.5 mg p.o. daily -Recheck INR in a.m. 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 Recent hemoglobin A1c was 7. -Hold metformin -Low-dose sliding scale Morbid obesity with BMI greater than 50 Maintenance issues - - DVT prophylaxis -enoxaparin - GI prophylaxis -PPI - Nutrition -nothing by mouth until he wakes up - Thompson catheter -placed in the emergency room for strict intake and output monitoring in a critical patient CODE STATUS -DNR/DNI per advanced directive Admission justification -this patient will be admitted for inpatient services and is medically appropriate meeting medical necessity for inpatient admission as outlined in my documentation. I reasonably expect the patient will require inpatient services that span a period time over 2 midnights. I reasonably expect this patient to be discharged or transferred within 96 hours [facility]. Disposition -I would anticipate discharge home after the hospital stay Primary care physician - Warren Clinton NP
[2020-02-22] MEDS: Magnesium Sulfate/Water 2 GM in Premix Bag 1 BAG IV SCH ×2 (12:55→17:58)
[2020-02-22] MEDS ORDERED: Warfarin 2.5 MG Tab PO SCH (13:00)
[2020-02-22] MEDS ORDERED: Vancomycin 2 GM in Sodium Chloride 0.9% 500 ML IV SCH (15:00)
--- NOTE | 2020-02-22 16:12 | CRLCT ---
HISTORY: Foot ulcers. TECHNIQUE: Noncontrast CT of the right and left feet. COMPARISON: Radiographs 02/21/2020 and 02/18/2020. FINDINGS: RIGHT FOOT: There is an apparent soft tissue wound involving the medial aspect of the forefoot adjacent to the 1st metatarsophalangeal joint. There is infiltration of the underlying soft tissues. Though assessment for fluid collections is limited by the noncontrast nature of this CT, no definite collection is seen in that region. There is no soft tissue gas. No bony destructive change in that region specific for acute osteomyelitis. There is no acute fracture. 1st MTP joint degenerative changes are present. Os peroneum. Plantar calcaneal spur. Spurring at the Achilles attachment to posterior calcaneus. Os trigonum. Chronic appearing ossicle within the proximal deltoid ligament. Infiltration of the subcutaneous tissues of the foot reflecting edema or cellulitis. Atrophy of the foot musculature likely indicating chronic denervation changes. ---- LEFT FOOT: Infiltration of the subcutaneous tissues of the foot may relate to edema or cellulitis. There is no soft tissue gas. No bony destructive change specific for acute osteomyelitis. Mild 1st MTP joint degenerative changes. Os trigonum. Os peroneum. Plantar calcaneal spur. Spurring at the Achilles attachment to posterior calcaneus. Atrophy of the foot musculature likely indicating chronic denervation changes. IMPRESSION: 1. RIGHT FOOT: Soft tissue wound involving the medial aspect of the forefoot adjacent the 1st MTP joint space. No definite collection. No soft tissue gas. No bony destructive change specific for acute osteomyelitis. Infiltration of the subcutaneous tissues of the foot reflecting edema or cellulitis. 2. LEFT FOOT: No definite collection. No soft tissue gas. No bony destructive change specific for acute osteomyelitis. Infiltration of the subcutaneous tissues of the foot reflecting edema or cellulitis. Dictated by Yusef Elizondo MD @ 02/22/2020 4:10:22 PM Please note that all CT scans at this facility use dose modulation, iterative reconstruction, and/or weight-based dosing when appropriate to reduce radiation dose to as low as reasonably achievable. Dictated by: Yusef Elizondo MD @ 02/22/2020 16:11:30 (Electronically Signed)
[2020-02-22] MEDS: Lactobacillus Rhamnosus GG (Probiotic) Cap PO SCH ×2 (17:55→20:26)
[2020-02-22] MEDS: Magnesium Oxide 400 MG Tab PO SCH ×2 (17:55→20:25)
[2020-02-22] MEDS: Pantoprazole 40 MG Tab.CR PO SCH (17:55)
[2020-02-22] MEDS: LORazepam 2 MG/ML SDV IVPUSH PRN (18:56)
[2020-02-22] MEDS ORDERED: LORazepam 2 MG/ML SDV IV SCH (19:15)
[2020-02-22] MEDS: LORazepam 1 MG Tab PO SCH (20:17)
[2020-02-23] MEDS: Insulin Lispro 100 Unit/ML 3 ML KwikPen SUBCUT SCH ×5 (00:26→21:20)
[2020-02-23] MEDS: Magnesium Sulfate/Water 2 GM in Premix Bag 1 BAG IV SCH (00:27)
[2020-02-23] MEDS: Meropenem 500 MG in Sodium Chloride 0.9% 50 ML IV SCH (02:53)
[2020-02-23] MEDS: Sodium Chloride 0.9% 1,000 ML IV SCH (05:51)
[2020-02-23] MEDS: Lactobacillus Rhamnosus GG (Probiotic) Cap PO SCH ×2 (09:38→20:24)
[2020-02-23] MEDS: Enoxaparin 40 MG/0.4 ML Syringe SUBCUT SCH (09:38)
[2020-02-23] MEDS: Pantoprazole 40 MG Tab.CR PO SCH (09:39)
[2020-02-23] MEDS: Nystatin Topical Powder 15 GM Bottle TOP SCH ×3 (09:39→20:25)
[2020-02-23] MEDS: Magnesium Oxide 400 MG Tab PO SCH ×2 (09:39→20:25)
--- NOTE | 2020-02-23 11:48 | PCM.PN ---
- General Info Date of Service: 02/23/20 Subjective Update: Mr. Conrad is improved since yesterday with no significant temperature elevation and stable vital signs. White blood cell count is normalized and renal function is almost back to baseline. He is more alert and interactive. - Review of Systems General: Reports: Weakness, Fatigue. Denies: Fever, Chills Pulmonary: Reports: No Symptoms Cardiovascular: Reports: No Symptoms Gastrointestinal: Reports: No Symptoms - Patient Data Vitals - Most Recent: Last Vital Signs Temp 98.4 F 02/23/20 09:00 Pulse 121 H 02/23/20 11:00 Resp 13 02/23/20 11:00 BP 158/95 H 02/23/20 11:00 Pulse Ox 99 02/23/20 11:00 Weight - Most Recent: 351 lb 9.6 oz I&O - Last 24 Hours: Intake & Output 02/22/20 02/23/20 02/23/20 22:59 06:59 14:59 Intake Total 1857 1475 Output Total 3260 1950 1450 Balance -[facility] -[address] [place], [place] [address] Lab Results Last 24 Hours: Laboratory Results - last 24 hr 02/23/20 02/23/20 02/23/20 Range/Units 05:40 05:40 05:40 WBC 6.5 (4.5-11.0) K/uL RBC 4.16 L (4.30-5.90) M/uL Hgb 12.2 (12.0-15.0) g/dL Hct 38.8 L (40.0-54.0) % MCV 93 (80-98) fL MCH 29 (27-31) pg MCHC 31 L (32-36) % Plt Count 173 (150-400) K/uL Neut % (Auto) 73 H (36-66) % Lymph % (Auto) 12 L (24-44) % [place] % (Auto) 14 H (2-6) % Eos % (Auto) 1 L (2-4) % Baso % (Auto) 1 (0-1) % PT 14.1 H (9.5-12.0) sec INR 1.30 H (0.80-1.20) Sodium 141 (140-148) mmol/L Potassium 4.0 (3.6-5.2) mmol/L Chloride 105 (100-108) mmol/L Carbon Dioxide 28 (21-32) mmol/L Anion Gap 8.4 (5.0-14.0) mmol/L BUN 15 (7-18) mg/dL Creatinine 1.3 D (0.8-1.3) mg/dL Est Cr Clr Drug Dosing 52.96 mL/min Estimated GFR (MDRD) 55 L (>60) Glucose 123 H (74-106) mg/dL Calcium 8.0 L (8.5-10.1) mg/dL Magnesium 2.4 (1.8-2.4) mg/dL Total Bilirubin 1.1 H (0.2-1.0) mg/dL AST 38 H (15-37) U/L ALT 29 (12-78) U/L Alkaline Phosphatase 129 H (46-116) U/L Total Protein 6.9 (6.4-8.2) g/dL Albumin 2.4 L (3.4-5.0) g/dL Globulin 4.5 H (2.3-3.5) g/dL Albumin/Globulin Ratio 0.5 L (1.2-2.2) Kush Results Last 24 Hours: Microbiology 02/21/20 14:04 Aerobic Blood Culture - Preliminary Blood - Arm, Right NO GROWTH AFTER 1 DAY Anaerobic Blood Culture - Preliminary NO GROWTH AFTER 1 DAY 02/21/20 13:48 Aerobic Blood Culture - Preliminary Blood - Venous NO GROWTH AFTER 1 DAY Anaerobic Blood Culture - Preliminary NO GROWTH AFTER 1 DAY Med Orders - Current: Current Medications Acetaminophen (Tylenol) 650 mg PO Q4H PRN PRN Reason: Pain (Mild 1-3)/fever Last Admin: 02/22/20 20:17 Dose: 650 mg Documented by: Albuterol (Proventil Neb Soln) 2.5 mg NEB Q4H PRN PRN Reason: Shortness Of Breath/wheezing Enoxaparin Sodium (Lovenox) 40 mg SUBCUT DAILY [facility] Last Admin: 02/23/20 09:38 Dose: 40 mg Documented by: Meropenem 1 gm/ Sodium (Chloride) 100 mls @ 200 mls/hr IV Q8H JENISE Insulin Human Lispro (Humalog) 0 unit SUBCUT Q6H JENISE; Protocol Last Admin: 02/23/20 05:51 Dose: Not Given Documented by: Lactobacillus Rhamnosus (Culturelle) 1 cap PO BID JENISE Last Admin: 02/23/20 09:38 Dose: 1 cap Documented by: Lorazepam (Ativan) 0.5 mg IVPUSH Q4H PRN PRN Reason: Nausea/Vomiting Last Admin: 02/22/20 18:56 Dose: 0.5 mg Documented by: Lorazepam (Ativan) 0 mg IV ASDIRECTED [facility]; Protocol Lorazepam (Ativan) 0 mg PO ASDIRECTED [facility]; Protocol Last Admin: 02/22/20 20:17 Dose: 1 mg Documented by: Magnesium Hydroxide (Milk Of Magnesia) 30 ml PO Q12H PRN PRN Reason: Constipation Magnesium Oxide (Magnesium Oxide) 400 mg PO BID [facility] Last Admin: 02/23/20 09:39 Dose: 400 mg Documented by: Nystatin (Nystop) 0 gm TOP TID [facility] Last Admin: 02/23/20 09:39 Dose: 1 applic Documented by: Ondansetron HCl (Zofran) 4 mg IV Q6H PRN PRN Reason: Nausea/Vomiting Last Admin: 02/21/20 18:08 Dose: 4 mg Documented by: Ondansetron HCl (Zofran Odt) 4 mg PO Q6H PRN PRN Reason: Nausea able to take PO Pantoprazole Sodium (Protonix) 40 mg PO ACBREAKFAST [facility] Last Admin: 02/23/20 09:39 Dose: 40 mg Documented by: Senna/Docusate Sodium (Senna Plus) 1 tab PO BID PRN PRN Reason: Constipation Warfarin Sodium (Coumadin) 5 mg PO DAILY@1300 [facility] Discontinued Medications Enoxaparin Sodium (Lovenox) 30 mg SUBCUT DAILY [facility] Last Admin: 02/22/20 10:24 Dose: 30 mg Documented by: Haloperidol Lactate (Haldol) Confirm Administered Dose 10 mg .ROUTE .STK-MED ONE Stop: 02/21/20 20:17 Last Admin: 02/21/20 20:30 Dose: 10 mg Documented by: Haloperidol Lactate (Haldol) 10 mg IVPUSH ONETIME STA Stop: 02/21/20 20:19 Last Admin: 02/21/20 20:42 Dose: Not Given Documented by: Sodium Chloride (Normal Saline) 1,000 mls @ 1,000 mls/hr IV ASDIRECTED [facility] Last Admin: 02/21/20 13:52 Dose: 1,000 mls/hr Documented by: Vancomycin HCl 1 gm/ Sodium (Chloride) 250 mls @ 150 mls/hr IV ONETIME ONE Stop: 02/21/20 15:21 Last Admin: 02/21/20 16:43 Dose: Not Given Documented by: Vancomycin HCl 2 gm/ Sodium (Chloride) 500 mls @ 250 mls/hr IV ONETIME ONE Stop: 02/21/20 16:29 Last Admin: 02/21/20 14:23 Dose: 250 mls/hr Documented by: Meropenem 1 gm/ Sodium (Chloride) 100 mls @ 200 mls/hr IV ONETIME ONE Stop: 02/21/20 14:59 Last Admin: 02/21/20 14:22 Dose: 200 mls/hr Documented by: Sodium Chloride (Normal Saline) 1,000 mls @ 700 mls/hr IV ASDIRECTED [facility] Stop: 02/21/20 16:26 Last Admin: 02/21/20 15:13 Dose: 700 mls/hr Documented by: Sodium Chloride (Normal Saline) 1,000 mls @ 125 mls/hr IV ASDIRECTED [facility] Last Admin: 02/23/20 05:51 Dose: 125 mls/hr Documented by: Vancomycin HCl 2 gm/ Sodium (Chloride) 500 mls @ 250 mls/hr IV Q24H [facility] Last Admin: 02/22/20 14:53 Dose: 250 mls/hr Documented by: Meropenem 500 mg/ Sodium (Chloride) 50 mls @ 100 mls/hr IV Q12H [facility] Last Admin: 02/23/20 02:53 Dose: 100 mls/hr Documented by: Sodium Chloride (Normal Saline) 500 mls @ 500 mls/hr IV .BOLUS ONE Stop: 02/21/20 22:01 Last Admin: 02/21/20 21:15 Dose: 500 mls/hr Documented by: Sodium Chloride (Normal Saline) 1,000 mls @ 500 mls/hr IV STAT STA Stop: 02/22/20 00:12 Last Admin: 02/21/20 22:15 Dose: 500 mls/hr Documented by: Magnesium Sulfate 2 gm/ Premix 50 mls @ 25 mls/hr IV Q6H JENISE Stop: 02/23/20 02:29 Last Admin: 02/23/20 00:27 Dose: 25 mls/hr Documented by: Nystatin (Nystop) 1 gm TOP TID [facility] Last Admin: 02/21/20 21:45 Dose: 1 applic Documented by: Warfarin Sodium (Coumadin) 2.5 mg PO DAILY@1300 [facility] Last Admin: 02/22/20 17:55 Dose: Not Given Documented by: - Exam Quality Assessment: DVT Prophylaxis General: Alert, Oriented, Cooperative, Mild Distress Lungs: Clear to Auscultation, Normal Respiratory Effort Cardiovascular: Regular Rate, Regular Rhythm, No Murmurs GI/Abdominal Exam: Soft, Non-Tender, No Organomegaly, No Distention Extremities: Non-Tender, Other (Ulcers both feet, cellulitis improved) Sepsis Event Note - Evaluation Sepsis Screening Result: No Definite Risk - Focused Exam Vital Signs: Vital Signs Temp Pulse Resp BP Pulse Ox 02/23/20 11:00 121 H 13 158/95 H 99 02/23/20 10:00 106 H 12 168/89 H 100 02/23/20 09:00 98.4 F 88 13 154/76 H 97 02/23/20 08:00 86 11 L 138/71 97 02/23/20 07:00 101 H 14 166/91 H 97 02/23/20 06:00 105 H 15 130/79 96 02/23/20 05:00 106 H 15 110/55 L 95 02/23/20 04:00 108 H 14 176/96 H 96 02/23/20 03:00 94 12 168/74 H 94 L 02/23/20 02:00 93 12 119/42 L 96 02/23/20 01:12 95 02/23/20 01:00 100 12 146/56 H 94 L 02/23/20 00:00 90 12 109/53 L 98 Date Exam was Performed: 02/23/20 Time Exam was Performed: 11:44 - Problem List Review Problem List Initiated/Reviewed/Updated: Yes - My Orders Last 24 Hours: My Active Orders 02/22/20 12:30 Magnesium Oxide 400 mg PO BID 02/22/20 18:58 CIWAA Assessment [RC] Q1H 02/22/20 19:09 Notify Provider [RC] PRN 02/22/20 19:15 LORazepam [Ativan] See Protocol IV ASDIRECTED LORazepam [Ativan] See Protocol PO ASDIRECTED 02/23/20 11:40 Convert IV to Saline Lock [OM.PC] Routine 02/23/20 11:42 Consult to Physical Therapy [PT Evaluation and Treatment] [CONS] Routine 02/23/20 11:45 Meropenem [Merrem] 1 gm Sodium Chloride 0.9% [Normal Saline] 100 ml IV Q8H 02/23/20 Lunch Consistent Carbohydrate Diet [DIET] 02/23/20 13:00 Warfarin [Coumadin] 5 mg PO DAILY@1300 02/24/20 05:00 BASIC METABOLIC PANEL,BMP [CHEM] Timed INR,PT,PROTHROMBIN TIME [COAG] Timed - Plan Plan:: ASSESSMENT AND PLAN - Cellulitis/sepsis-good improvement over the last 24 hours with normalization of white blood cell count and no fevers. CT scan of both feet showed no evidence of osteomyelitis -Discontinue vancomycin -Continue meropenem -Follow-up cultures Acute kidney injury-improvement in renal function over the last 24 hours -Management as above with labs in the morning Hyperkalemia-resolved -Repeat level in the morning History of congestive heart failure-well compensated at the present time -Resume beta-dann therapy Atrial fibrillation-unclear duration, currently rate controlled. INR is subtherapeutic -Hold calcium channel dann at this time -Warfarin 5 mg p.o. daily -Recheck INR in a.m. 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 R ecent hemoglobin A1c was 7. -Hold metformin -Low-dose sliding scale Morbid obesity with BMI greater than 50 Maintenance issues - - DVT prophylaxis -enoxaparin - GI prophylaxis -PPI - Nutrition -nothing by mouth until he wakes up - Thompson catheter -placed in the emergency room for strict intake and output monitoring in a critical patient CODE STATUS -DNR/DNI per advanced directive Admission justification -this patient will be admitted for inpatient services and is medically appropriate meeting medical necessity for inpatient admission as outlined in my documentation. I reasonably expect the patient will require inpatient services that span a period time over 2 midnights. I reasonably expect this patient to be discharged or transferred within 96 hours [facility]. Disposition -I would anticipate discharge home after the hospital stay Primary care physician - Warren Clinton NP
[2020-02-23] MEDS ORDERED: FLUTICASONE IH SCH (12:00)
[2020-02-23] MEDS ORDERED: VILANTEROL IH SCH (12:00)
[2020-02-23] MEDS ORDERED: METOPROLOL SUCCINATE PO SCH (12:00)
[2020-02-23] MEDS: Meropenem 1 GM in Sodium Chloride 0.9% 100 ML IV SCH ×2 (12:37→20:24)
[2020-02-23] MEDS: Allopurinol 300 MG Tab PO SCH (12:39)
[2020-02-23] MEDS: Sertraline 50 MG Tab PO SCH (12:39)
[2020-02-23] MEDS: Amiodarone 200 MG Tab PO SCH (12:39)
[2020-02-23] MEDS: Aspirin 81 MG Tab.EC PO SCH (12:39)
[2020-02-23] MEDS: Diltiazem 180 MG Cap.CD PO SCH (12:40)
[2020-02-23] MEDS ORDERED: Warfarin 5 MG Tab PO SCH (13:00)
[2020-02-23] MEDS: Fluticasone-Salmeterol 232-14 MCG Powder Inhalent INH SCH (20:24)
[2020-02-23] MEDS: LORazepam 1 MG Tab PO SCH (21:19)
[2020-02-24] MEDS: Insulin Lispro 100 Unit/ML 3 ML KwikPen SUBCUT SCH ×2 (01:25→05:49)
[2020-02-24] MEDS: Meropenem 1 GM in Sodium Chloride 0.9% 100 ML IV SCH (03:48)
[2020-02-24] MEDS: Fluticasone-Salmeterol 232-14 MCG Powder Inhalent INH SCH (07:07)
[2020-02-24] MEDS: Pantoprazole 40 MG Tab.CR PO SCH (07:22)
[2020-02-24] MEDS: Amiodarone 200 MG Tab PO SCH (08:41)
[2020-02-24] MEDS: Diltiazem 180 MG Cap.CD PO SCH (08:41)
[2020-02-24] MEDS: Lactobacillus Rhamnosus GG (Probiotic) Cap PO SCH (08:41)
[2020-02-24] MEDS: Aspirin 81 MG Tab.EC PO SCH (08:42)
[2020-02-24] MEDS: Sertraline 50 MG Tab PO SCH (08:42)
[2020-02-24] MEDS: Magnesium Oxide 400 MG Tab PO SCH (08:43)
[2020-02-24] MEDS: Allopurinol 300 MG Tab PO SCH (08:43)
[2020-02-24] MEDS: Enoxaparin 40 MG/0.4 ML Syringe SUBCUT SCH ×2 (08:43→09:14)
[2020-02-24] MEDS ORDERED: Furosemide 40 MG Tab PO SCH (09:00)
[2020-02-24] MEDS: Nystatin Topical Powder 15 GM Bottle TOP SCH (09:02)
--- NOTE | 2020-02-24 09:16 | PCM.DCSUM1 ---
Discharge Summary - Hospital Course Brief History: Mr. Conrad is a 64-year-old gentleman who was admitted through the emergency department with weakness and lethargy secondary to cellulitis associated with diabetic foot ulcers. - Discharge Data Discharge Date: 02/24/20 Discharge Disposition: Home, Self-Care 01 Condition: Fair - Referral to Home Health Date of Face to Face Encounter: 02/24/20 Reason for Homebound Status: Weakness Primary Care Physician: PCP None Skilled Need: Dressing changes, weakness; PT and OT - Discharge Diagnosis/Problem(s) (1) Cellulitis SNOMED Code(s): 365793133 ICD Code: L03.90 - CELLULITIS, UNSPECIFIED Status: Acute Current Visit: Yes (2) Acute kidney injury SNOMED Code(s): 56176400, 84483679 ICD Code: N17.9 - ACUTE KIDNEY FAILURE, UNSPECIFIED Status: Acute Current Visit: Yes (3) Change in mental status SNOMED Code(s): 537885880 ICD Code: R41.82 - ALTERED MENTAL STATUS, UNSPECIFIED Status: Acute Current Visit: Yes Qualifiers: Altered mental status type: stupor Qualified Code(s): R40.1 - Stupor (4) Diabetic foot ulcer SNOMED Code(s): 691437850 ICD Code: E11.621 - TYPE 2 DIABETES MELLITUS WITH FOOT ULCER; L97.509 - NON- PRESSURE CHRONIC ULCER OTH PRT UNSP FOOT W UNSP SEVERITY Status: Acute Current Visit: Yes Qualifiers: Diabetic foot ulcer location: heel Diabetes mellitus type: type 2 Laterality: left Non-pressure ulcer stage: with fat layer exposed Qualified Code(s): E11.621 - Type 2 diabetes mellitus with foot ulcer; L97.422 - Non- pressure chronic ulcer of left heel and midfoot with fat layer exposed (5) Sepsis SNOMED Code(s): 03984916 ICD Code: A41.9 - SEPSIS, UNSPECIFIED ORGANISM Status: Acute Current Visit: Yes Qualifiers: Sepsis type: sepsis due to unspecified organism Sepsis acute organ dysfunction status: with acute organ dysfunction Severe sepsis acute organ dysfunction type: acute renal failure Acute renal failure type: with acute renal cortical necrosis Severe sepsis shock status: without septic shock Qualified Code(s): A41.9 - Sepsis, unspecified organism; R65.20 - Severe sepsis without septic shock; N17.1 - Acute kidney failure with acute cortical necrosis (6) Atrial fibrillation SNOMED Code(s): 51251670 ICD Code: I48.91 - UNSPECIFIED ATRIAL FIBRILLATION Status: Chronic Current Visit: Yes Qualifiers: Atrial fibrillation type: paroxysmal Qualified Code(s): I48.0 - Paroxysmal atrial fibrillation (7) Morbid obesity with BMI of 50.0-59.9, adult SNOMED Code(s): 085299387, 19099579843789 ICD Code: E66.01 - MORBID (SEVERE) OBESITY DUE TO EXCESS CALORIES; Z68.43 - BODY MASS INDEX (BMI) 50.0-59.9, ADULT Status: Chronic Current Visit: Yes - Patient Summary/Data Consults: Consultations 02/22/20 10:00 Consult to Physician [CONS] Urgent Consulting Provider: Benny Buitrago Call Completed to Consulting Physician: Fever, foot ulcers 02/23/20 11:42 Consult to Physical Therapy [PT Evaluation and Treatment] [CONS] Routine Please Evaluate and Treat. PT Reason for Consult: Weakness This query below is only for informational purposes and is not editable. Admission Diagnosis/Problem: Acute kidney injury Hospital Course: Mr. Conrad is a 64-year-old gentleman who was admitted through the emergency department with weakness and lethargy secondary to bilateral diabetic foot ulcers and associated cellulitis. He was very lethargic and able to provide only minimal hx. History was gathered from his emergency room providers and they did receive information from his significant other and paramedics. Patient was seen in the emergency room a few days ago with aches and pains and just generally not feeling well. He was noted to have a fast rate with his atrial fibrillation and his diltiazem was increased. He did not want to be admitted to the hospital at that time though there was some concern about cellulitis around 1 of his diabetic foot ulcers, notably on the right foot. He was sent home with antibiotics. Last night his significant other reported that he vomited after eating a small amount of supper. He had multiple rounds of emesis and then fell asleep in his wheelchair. This morning he was very lethargic so she called 911. Work-up in the emergency room has raised concern for sepsis with significant leukocytosis and lactic acidosis though the patient's vital signs are stable. No obvious source of infection has been found so far. His kidney function is down considerably from his baseline. While in the emergency department he was felt to have probable sepsis and was given vigorous IV fluid replacement, blood cultures were obtained and he was started on IV antibiotic therapy. Lactic acid level was elevated and after admission serial lactic acid levels were monitored and did normalize by the following morning. He did not receive a full dose of IV fluids because of concern regarding his congestive heart failure. He remained very lethargic over the first 24 hours of admission but by the time of discharge was alert oriented. He was encouraged to consider staying another day for further IV antibiotic therapy which he refused. He will be discharged home on oral antibiotic therapy with levofloxacin for an addition al week. Cultures had remained negative up until the time of discharge. Follow-up appointment will be scheduled with his primary care provider within [address] Buitrago within [address] scan of both feet had been obtained during hospitalization and showed no evidence of underlying osteomyelitis. Home care will be scheduled for dressing changes and he will be scheduled for an appointment in the Coumadin clinic in 2 to 3 days. - Patient Instructions Diet: Low Sodium Activity: As Tolerated Other/Special Instructions: Please schedule Coumadin clinic appointment within 2 to 3 days. Please schedule follow-up appointment with primary care provider within 1 week. Please schedule follow-up appointment with Dr. Buitrago in 2 weeks. Please arrange for home care services for daily dressing changes. - Discharge Plan *PRESCRIPTION DRUG MONITORING PROGRAM REVIEWED*: Not Applicable *COPY OF PRESCRIPTION DRUG MONITORING REPORT IN PATIENT XOCHILT: Not Applicable Prescriptions/Med Rec: Lactobacillus Rhamnosus GG [Culturelle] 1 cap PO BID #60 cap levoFLOXacin [Levaquin] 500 mg PO DAILY #7 tab Home Medications: Home Meds Allopurinol [Zyloprim] 300 mg PO DAILY 02/18/20 [History] Colchicine [Colcrys] 0.6 mg PO TID PRN 02/18/20 [History] Diltiazem HCl [Diltiazem 24Hr ER] 180 mg PO DAILY 02/18/20 [History] Furosemide 40 mg PO DAILY 02/18/20 [History] Magnesium Oxide 400 mg PO BID 02/18/20 [History] Metoprolol Succinate 75 mg PO DAILY 02/18/20 [History] Potassium Chloride 40 meq PO BID 02/18/20 [History] Sertraline [Zoloft] 50 mg PO DAILY 02/18/20 [History] hydrALAZINE [Apresoline] 25 mg PO Q8H 02/18/20 [History] metOLazone [Metolazone] 5 mg PO DAILY 02/18/20 [History] traZODone 100 mg PO BEDTIME 02/18/20 [History] Amiodarone [Cordarone] 200 mg PO DAILY 02/21/20 [History] Amoxicillin/Potassium Clav [Augmentin 875-125 Tablet] 1 each PO BID 02/21/20 [History] Aspirin [Halfprin] 81 mg PO DAILY 02/21/20 [History] Baclofen 10 mg PO TID PRN 02/21/20 [History] Calcium Carbonate [Tums] 1,000 mg PO DAILY PRN 02/21/20 [History] Folic Acid 1 mg PO DAILY 02/21/20 [History] Meclizine [Antivert] 25 mg PO DAILY 02/21/20 [History] Multivitamin [Multi-Vitamin Daily] 1 each PO DAILY 02/21/20 [History] Nitroglycerin [Nitrostat] 0.4 mg PO Q5M PRN 02/21/20 [History] Silver Sulfadiazine [Silvadene 1% Cream 400 GM] 1 applic TOP DAILY 02/21/20 [History] Warfarin Sliding Scale [Coumadin Sliding Scale] 5 mg PO WEEKLY 02/21/20 [History] Warfarin Sodium [Jantoven] 7.5 mg PO DAILY 02/21/20 [History] metFORMIN HCl [Metformin HCl] 1,000 mg PO BID 02/21/20 [History] ondansetron HCL [Zofran] 4 mg PO Q8H PRN 02/21/20 [History] Fluticasone/Vilanterol [Breo Ellipta 100-25 MCG Inhalation Kit] 2 inhalation INH DAILY 02/23/20 [History] Lactobacillus Rhamnosus GG [Culturelle] 1 cap PO BID #60 cap 02/24/20 [Rx] levoFLOXacin [Levaquin] 500 mg PO DAILY #7 tab 02/24/20 [Rx] Referrals: Warren Clinton NP [Nurse Practitioner] - 03/03/20 1:00 pm (Please arrive 15 minutes early to register for your appointments.) Benny Buitrago MD [Physician] - 03/03/20 12:20 pm () - Discharge Summary/Plan Comment DC Time >30 min.: No - Patient Data Vitals - Most Recent: Last Vital Signs Temp 98.5 F 02/24/20 08:55 Pulse 97 02/24/20 08:55 Resp 14 02/24/20 08:55 BP 146/74 H 02/24/20 08:55 Pulse Ox 96 02/24/20 08:55 Weight - Most Recent: 351 lb 9.6 oz I&O - Last 24 hours: Intake & Output 02/23/20 02/24/20 02/24/20 22:59 06:59 14:59 Intake Total 852 200 Output Total 350 1100 375 Balance 502 900 -375 Lab Results - Last 24 hrs: Laboratory Results - last 24 hr 02/24/20 02/24/20 Range/Units 05:30 05:30 PT 14.9 H (9.5-12.0) sec INR 1.38 H (0.80-1.20) Sodium 140 (140-148) mmol/L Potassium 3.7 (3.6-5.2) mmol/L Chloride 105 (100-108) mmol/L Carbon Dioxide 29 (21-32) mmol/L Anion Gap 6.3 (5.0-14.0) mmol/L BUN 12 (7-18) mg/dL Creatinine 1.1 (0.8-1.3) mg/dL Est Cr Clr Drug Dosing 62.59 mL/min Estimated GFR (MDRD) > 60 (>60) Glucose 117 H (74-106) mg/dL Calcium 8.3 L (8.5-10.1) mg/dL VIANEY Results - Last 24 hrs: Microbiology 02/21/20 14:04 Aerobic Blood Culture - Preliminary Blood - Arm, Right NO GROWTH AFTER 2 DAYS Anaerobic Blood Culture - Preliminary NO GROWTH AFTER 2 DAYS 02/21/20 13:48 Aerobic Blood Culture - Preliminary Blood - Venous NO GROWTH AFTER 2 DAYS Anaerobic Blood Culture - Preliminary NO GROWTH AFTER 2 DAYS Med Orders - Current: Current Medications Acetaminophen (Tylenol) 650 mg PO Q4H PRN PRN Reason: Pain (Mild 1-3)/fever Last Admin: 02/22/20 20:17 Dose: 650 mg Documented by: Albuterol (Proventil Neb Soln) 2.5 mg NEB Q4H PRN PRN Reason: Shortness Of Breath/wheezing Allopurinol (Zyloprim) 300 mg PO DAILY [facility] Last Admin: 02/24/20 08:43 Dose: 300 mg Documented by: Amiodarone HCl (Cordarone) 200 mg PO DAILY [facility] Last Admin: 02/24/20 08:41 Dose: 200 mg Documented by: Aspirin (Halfprin) 81 mg PO DAILY [facility] Last Admin: 02/24/20 08:42 Dose: 81 mg Documented by: Diltiazem HCl (Cardizem Cd) 180 mg PO DAILY [facility] Last Admin: 02/24/20 08:41 Dose: 180 mg Documented by: Enoxaparin Sodium (Lovenox) 40 mg SUBCUT DAILY [facility] Last Admin: 02/23/20 09:38 Dose: 40 mg Documented by: Furosemide (Lasix) 40 mg PO DAILY [facility] Last Admin: 02/24/20 08:42 Dose: 40 mg Documented by: Meropenem 1 gm/ Sodium (Chloride) 100 mls @ 200 mls/hr IV Q8H [facility] Last Admin: 02/24/20 03:48 Dose: 200 mls/hr Documented by: Insulin Human Lispro (Humalog) 0 unit SUBCUT Q6H [facility]; Protocol Last Admin: 02/24/20 05:49 Dose: Not Given Documented by: Lactobacillus Rhamnosus (Culturelle) 1 cap PO BID [facility] Last Admin: 02/24/20 08:41 Dose: 1 cap Documented by: Lorazepam (Ativan) 0.5 mg IVPUSH Q4H PRN PRN Reason: Nausea/Vomiting Last Admin: 02/22/20 18:56 Dose: 0.5 mg Documented by: Lorazepam (Ativan) 0 mg IV ASDIRECTED [facility]; Protocol Lorazepam (Ativan) 0 mg PO ASDIRECTED [facility]; Protocol Last Admin: 02/23/20 21:19 Dose: 1 mg Documented by: Magnesium Hydroxide (Milk Of Magnesia) 30 ml PO Q12H PRN PRN Reason: Constipation Magnesium Oxide (Magnesium Oxide) 400 mg PO BID [facility] Last Admin: 02/24/20 08:43 Dose: 400 mg Documented by: Metoprolol Succinate 50 mg/ (Metoprolol Succinate 25 mg) 75 mg PO DAILY [facility] Last Admin: 02/24/20 08:42 Dose: 75 mg Documented by: Nystatin (Nystop) 0 gm TOP TID [facility] Last Admin: 02/24/20 09:02 Dose: 2 applic Documented by: Ondansetron HCl (Zofran) 4 mg IV Q6H PRN PRN Reason: Nausea/Vomiting Last Admin: 02/21/20 18:08 Dose: 4 mg Documented by: Ondansetron HCl (Zofran Odt) 4 mg PO Q6H PRN PRN Reason: Nausea able to take PO Pantoprazole Sodium (Protonix) 40 mg PO ACBREAKFAST [facility] Last Admin: 02/24/20 07:22 Dose: 40 mg Documented by: Fluticasone/Salmeterol (Fluticasone-Salmeterol 232-14 Mcg Powder Inha) 2 puff INH BIDRT [facility] Last Admin: 02/24/20 07:07 Dose: 2 puff Documented by: Senna/Docusate Sodium (Senna Plus) 1 tab PO BID PRN PRN Reason: Constipation Sertraline HCl (Zoloft) 50 mg PO DAILY [facility] Last Admin: 02/24/20 08:42 Dose: 50 mg Documented by: Warfarin Sodium (Coumadin) 5 mg PO DAILY@1300 [facility] Last Admin: 02/23/20 12:39 Dose: 5 mg Documented by: Discontinued Medications Enoxaparin Sodium (Lovenox) 30 mg SUBCUT DAILY [facility] Last Admin: 02/22/20 10:24 Dose: 30 mg Documented by: Haloperidol Lactate (Haldol) Confirm Administered Dose 10 mg .ROUTE .STK-MED ONE Stop: 02/21/20 20:17 Last Admin: 02/21/20 20:30 Dose: 10 mg Documented by: Haloperidol Lactate (Haldol) 10 mg IVPUSH ONETIME STA Stop: 02/21/20 20:19 Last Admin: 02/21/20 20:42 Dose: Not Given Documented by: Sodium Chloride (Normal Saline) 1,000 mls @ 1,000 mls/hr IV ASDIRECTED [facility] Last Admin: 02/21/20 13:52 Dose: 1,000 mls/hr Documented by: Vancomycin HCl 1 gm/ Sodium (Chloride) 250 mls @ 150 mls/hr IV ONETIME ONE Stop: 02/21/20 15:21 Last Admin: 02/21/20 16:43 Dose: Not Given Documented by: Vancomycin HCl 2 gm/ Sodium (Chloride) 500 mls @ 250 mls/hr IV ONETIME ONE Stop: 02/21/20 16:29 Last Admin: 02/21/20 14:23 Dose: 250 mls/hr Documented by: Meropenem 1 gm/ Sodium (Chloride) 100 mls @ 200 mls/hr IV ONETIME ONE Stop: 02/21/20 14:59 Last Admin: 02/21/20 14:22 Dose: 200 mls/hr Documented by: Sodium Chloride (Normal Saline) 1,000 mls @ 700 mls/hr IV ASDIRECTED [facility] Stop: 02/21/20 16:26 Last Admin: 02/21/20 15:13 Dose: 700 mls/hr Documented by: Sodium Chloride (Normal Saline) 1,000 mls @ 125 mls/hr IV ASDIRECTED [facility] Last Admin: 02/23/20 05:51 Dose: 125 mls/hr Documented by: Vancomycin HCl 2 gm/ Sodium (Chloride) 500 mls @ 250 mls/hr IV Q24H [facility] Last Admin: 02/22/20 14:53 Dose: 250 mls/hr Documented by: Meropenem 500 mg/ Sodium (Chloride) 50 mls @ 100 mls/hr IV Q12H [facility] Last Admin: 02/23/20 02:53 Dose: 100 mls/hr Documented by: Sodium Chloride (Normal Saline) 500 mls @ 500 mls/hr IV .BOLUS ONE Stop: 02/21/20 22:01 Last Admin: 02/21/20 21:15 Dose: 500 mls/hr Documented by: Sodium Chloride (Normal Saline) 1,000 mls @ 500 mls/hr IV STAT STA Stop: 02/22/20 00:12 Last Admin: 02/21/20 22:15 Dose: 500 mls/hr Documented by: Magnesium Sulfate 2 gm/ Premix 50 mls @ 25 mls/hr IV Q6H JENISE Stop: 02/23/20 02:29 Last Admin: 02/23/20 00:27 Dose: 25 mls/hr Documented by: Magnesium Oxide (Magnesium Oxide) 400 mg PO BID [facility] Last Admin: 02/23/20 09:39 Dose: 400 mg Documented by: Nystatin (Nystop) 1 gm TOP TID [facility] Last Admin: 02/21/20 21:45 Dose: 1 applic Documented by: Warfarin Sodium (Coumadin) 2.5 mg PO DAILY@1300 [facility] Last Admin: 02/22/20 17:55 Dose: Not Given Documented by: - Exam Quality Assessment: Reports: DVT Prophylaxis General: Reports: Alert, Oriented, Cooperative, No Acute Distress Lungs: Reports: Clear to Auscultation, Normal Respiratory Effort Cardiovascular: Reports: Regular Rate, Regular Rhythm, No Murmurs GI/Abdominal Exam: Soft, Non-Tender, No Organomegaly, No Distention Extremities: Non-Tender, Pedal Edema
== END 2020-02-24 10:51 | disposition home or self-care (01) | DRG 871 ==
LOC: JP.ED 12:49 → JP.ICU 15:02
PROVIDERS: ADMIT Internal Medicine; ATTEND Hospitalist
DX: A41.9 Sepsis, unspecified organism (principal); N17.1 Acute kidney failure with acute cortical necrosis; R40.1 Stupor; I50.9 Heart failure, unspecified; E11.9 Type 2 diabetes mellitus without complications; L03.116 Cellulitis of left lower limb; Z68.43 Body mass index [BMI] 50.0-59.9, adult; L97.422 Non-pressure chronic ulcer of left heel and midfoot with fat layer exposed; Z66 Do not resuscitate; E11.628 Type 2 diabetes mellitus with other skin complications; R65.20 Severe sepsis without septic shock; I48.0 Paroxysmal atrial fibrillation; E66.01 Morbid (severe) obesity due to excess calories; E11.621 Type 2 diabetes mellitus with foot ulcer; E87.5 Hyperkalemia; Z79.899 Other long term (current) drug therapy; Z79.82 Long term (current) use of aspirin; Z79.01 Long term (current) use of anticoagulants; Z88.8 Allergy status to other drugs, medicaments and biological substances; Z90.49 Acquired absence of other specified parts of digestive tract; Z79.84 Long term (current) use of oral hypoglycemic drugs; Z20.828 Contact with and (suspected) exposure to other viral communicable diseases
CPT/HCPCS: 36415; 36600; 51702; 70450; 71250; 80053; 80305; 81001; 82803; 83605; 84484; 85025; 87040 ×2; 93005; 93010; 96365; 96368; 99285; J2185; J3370; J7030; J7040; J7050; U0002; 73620-26-LT; 73620-LT; 73700-50; 80048; 82962; 83735; 85027; 85610; 94640; 97162-GP; 97530-GP; 99222-AI; 99231; 99232; 99238; A9270-GY; J1630; J1650; J1815; J2060; J2405; J3475

== ENCOUNTER 2020-05-12 20:17 | Emergency (ER) | payer MEDICARE, MEDICAID ==
--- NOTE | 2020-05-12 20:53 | EDM.PDOC ---
ED HPI GENERAL MEDICAL PROBLEM - General Chief Complaint: Respiratory Problem Stated Complaint: MEDICAL VIA [facility] Time Seen by Provider: 05/12/20 20:44 Source of Information: Reports: Patient, EMS, Family History Limitations: Reports: No Limitations - History of Present Illness INITIAL COMMENTS - FREE TEXT/NARRATIVE: Patient presents by ambulance from home after his called 911 reportedly because the patient has been lethargic and sleeping for the past week. He denies fever or chills, nausea or vomiting. He has atrial fibrillation and his heart rate varies with that. He has had no other recent visits to the clinic and has had no medication changes. He states that "I do not know why my called the ambulance?" Onset: Today, Gradual Location: Reports: Generalized Severity: Mild Improves with: Reports: None Worsens with: Reports: None - Related Data Allergies Allergy/AdvReac Type Severity Reaction Status Date / Time carvedilol [From Coreg] Allergy Other Verified 02/18/20 18:37 gabapentin Allergy Hives Verified 02/18/20 18:37 spironolactone Allergy Hives Verified 02/18/20 18:37 Home Meds: Home Meds Allopurinol [Zyloprim] 300 mg PO DAILY 02/18/20 [History] Colchicine [Colcrys] 0.6 mg PO TID PRN 02/18/20 [History] Diltiazem HCl [Diltiazem 24Hr ER] 180 mg PO DAILY 02/18/20 [History] Furosemide 40 mg PO DAILY 02/18/20 [History] Magnesium Oxide 400 mg PO BID 02/18/20 [History] Metoprolol Succinate 75 mg PO DAILY 02/18/20 [History] Potassium Chloride 40 meq PO BID 02/18/20 [History] Sertraline [Zoloft] 50 mg PO DAILY 02/18/20 [History] hydrALAZINE [Apresoline] 25 mg PO Q8H 02/18/20 [History] metOLazone [Metolazone] 5 mg PO DAILY 02/18/20 [History] traZODone 100 mg PO BEDTIME 02/18/20 [History] Amiodarone [Cordarone] 200 mg PO DAILY 02/21/20 [History] Aspirin [Halfprin] 81 mg PO DAILY 02/21/20 [History] Baclofen 10 mg PO TID PRN 02/21/20 [History] Calcium Carbonate [Tums] 1,000 mg PO DAILY PRN 02/21/20 [History] Folic Acid 1 mg PO DAILY 02/21/20 [History] Meclizine [Antivert] 25 mg PO DAILY 02/21/20 [History] Multivitamin [Multi-Vitamin Daily] 1 each PO DAILY 02/21/20 [History] Nitroglycerin [Nitrostat] 0.4 mg PO Q5M PRN 02/21/20 [History] Silver Sulfadiazine [Silvadene 1% Cream 400 GM] 1 applic TOP DAILY 02/21/20 [History] Warfarin Sliding Scale [Coumadin Sliding Scale] 5 mg PO WEEKLY 02/21/20 [History] Warfarin Sodium [Jantoven] 7.5 mg PO DAILY 02/21/20 [History] metFORMIN HCl [Metformin HCl] 1,000 mg PO BID 02/21/20 [History] ondansetron HCL [Zofran] 4 mg PO Q8H PRN 02/21/20 [History] Fluticasone/Vilanterol [Breo Ellipta 100-25 MCG Inhalation Kit] 2 inhalation INH DAILY 02/23/20 [History] Lactobacillus Rhamnosus GG [Culturelle] 1 cap PO BID #60 cap 02/24/20 [Rx] levoFLOXacin [Levaquin] 500 mg PO DAILY #7 tab 02/24/20 [Rx] Past Medical History HEENT History: Reports: Other (See Below) Other HEENT History: esophageal varices Cardiovascular History: Reports: Afib, Heart Failure Psychiatric History: Reports: Addiction Endocrine/Metabolic History: Reports: Diabetes, Type II - Infectious Disease History Infectious Disease History: Reports: Chicken Pox - Past Surgical History GI Surgical History: Reports: Cholecystectomy Social & Family History - Family History Family Medical History: Unobtainable - Tobacco Use Smoking Status *Q: Never Smoker - Caffeine Use Caffeine Use: Reports: Soda Caffeine Use Comment: unable to obtain - Recreational Drug Use Recreational Drug Use: No ED ROS GENERAL - Review of Systems Review Of Systems: See Below Constitutional: Reports: Malaise, Weakness, Fatigue. Denies: Fever, Chills HEENT: Reports: No Symptoms Respiratory: Reports: Shortness of Breath Cardiovascular: Reports: Dyspnea on Exertion. Denies: Chest Pain Endocrine: Reports: Fatigue GI/Abdominal: Reports: No Symptoms. Denies: Abdominal Pain : Reports: Incontinence ED EXAM, GENERAL - Physical Exam Exam: See Below Exam Limited By: No Limitations General Appearance: Alert (Falls asleep easily however) Eye Exam: Bilateral Eye: EOMI Ears: Normal External Exam Respiratory/Chest: No Respiratory Distress, Lungs Clear Cardiovascular: Systolic Murmur, Irregularly Irregular Back Exam: Normal Inspection EKG INTERPRETATION EKG Date: 05/12/20 Time: 20:58 Rhythm: A-Fib Rate (Beats/Min): 102 Gregory: Normal P-Wave: Present QRS: Normal ST-T: Normal Course - Vital Signs Last Recorded V/S: Last Vital Signs Temp 37.0 C 05/12/20 23:57 Pulse 79 05/12/20 23:57 Resp 11 L 05/12/20 23:57 BP 95/62 05/12/20 23:57 Pulse Ox 97 05/12/20 23:57 - Orders/Labs/Meds Orders: Active Orders 24 hr Category Date Time Status EKG 12 Lead [EK] Routine Ther 05/12/20 20:55 Ordered Labs: Laboratory Tests 05/12/20 05/12/20 05/12/20 Range/Units 21:09 21:09 21:09 WBC 7.1 (4.5-11.0) K/uL RBC 4.23 L (4.30-5.90) M/uL Hgb 12.2 (12.0-15.0) g/dL Hct 38.2 L (40.0-54.0) % MCV 90 (80-98) fL MCH 29 (27-31) pg MCHC 32 (32-36) % Plt Count 173 (150-400) K/uL Neut % (Auto) 73 H (36-66) % Lymph % (Auto) 13 L (24-44) % [place] % (Auto) 12 H (2-6) % Eos % (Auto) 2 (2-4) % Baso % (Auto) 0 (0-1) % Sodium 134 L (140-148) mmol/L Potassium 3.2 L (3.6-5.2) mmol/L Chloride 97 L (100-108) mmol/L Carbon Dioxide 30 (21-32) mmol/L Anion Gap 10.2 (5.0-14.0) mmol/L BUN 17 (7-18) mg/dL Creatinine 1.4 H (0.8-1.3) mg/dL Est Cr Clr Drug Dosing 50.89 mL/min Estimated GFR (MDRD) 51 L (>60) Glucose 334 H (74-106) mg/dL Calcium 7.9 L (8.5-10.1) mg/dL Total Bilirubin 0.4 D (0.2-1.0) mg/dL AST 31 (15-37) U/L ALT 25 (12-78) U/L Alkaline Phosphatase 147 H (46-116) U/L Troponin I < 0.017 (0.000-0.056) ng/mL Total Protein 7.2 (6.4-8.2) g/dL Albumin 2.4 L (3.4-5.0) g/dL Globulin 4.8 H (2.3-3.5) g/dL Albumin/Globulin Ratio 0.5 L (1.2-2.2) - Re-Assessments/Exams Free Text/Narrative Re-Assessment/Exam: 05/13/20 05:33 The patient slept when not actively engaged in conversation. At some points while sleeping his blood pressure was in the 80s but then jennifer again and the systolic pressure remained at 110 mmHg or above. He remained in no distress. Eventually his came to express her frustration with him not following through with medications and other things related to health we acknowledged her concern but also reviewed the fact that no one can force him to do those things. He did talk about his CPAP apparatus and it sounds as though they need to be replaced. I recommend he contact his primary care team tomorrow and ask them about orders to have it replaced. He has a follow-up appointment later this month but I recommend that he get the new CPAP care, use it, provide feedback to his primary care team. He was discharged after quite some time in stable condition. Departure - Departure Time of Disposition: 00:39 Disposition: Home, Self-Care 01 Clinical Impression: CHF, Congestive heart failure, Atrial fibrillation with rapid ventricular response, Morbid obesity with BMI of 50.0-59.9, adult Sleep apnea Qualifiers: Sleep apnea type: unspecified type Qualified Code(s): G47.30 - Sleep apnea, unspecified Fatigue Qualifiers: Fatigue type: unspecified Qualified Code(s): R53.83 - Other fatigue - Discharge Information Instructions: Sleep Apnea, [id number], Heart Failure, Diagnosis, [id number], Atrial Fibrillation, [id number], Obesity, Adult, [id number] Referrals: PCP,None [Primary Care Provider] - Forms: ED Department Discharge Additional Instructions: Continue current recommended medications. Talk to your primary care team today and ask about getting orders for a new CPAP unit. If you are sleeping better at night you will likely have more energy during the day. Return to ER if feeling worse but again we strongly encourage you to fully use the current prescribed care plan that you have. Sepsis Event Note (ED) - Focused Exam Vital Signs: Vital Signs Temp Pulse Resp BP Pulse Ox 05/12/20 23:57 37.0 C 79 11 L 95/62 97 05/12/20 23:10 79 11 L 95/62 05/12/20 22:23 76 13 99/56 L 05/12/20 21:18 97 117/81 05/12/20 20:42 37.0 C 87 16 104/70 97 - My Orders Last 24 Hours: My Active Orders 05/12/20 20:55 EKG 12 Lead [EK] Routine - Assessment/Plan Last 24 Hours: My Active Orders 05/12/20 20:55 EKG 12 Lead [EK] Routine
--- NOTE | 2020-05-12 22:09 | CRLCR ---
INDICATION: Shortness of breath, weakness TECHNIQUE: Chest radiograph 3 views COMPARISON: 02/18/2020 FINDINGS: Moderate degradation of image quality noted due to body habitus. Mediastinum: The mediastinum is normal in appearance. New moderate to severe cardiomegaly is noted. Lung: There is a stable 6 mm calcified granuloma in the left midlung. No sign of pleural effusion seen. No pneumothorax is identified. Bone and Soft tissue: Unremarkable for age. IMPRESSION: 1. New moderate to severe cardiomegaly is noted. Dictated by Rigo Vidal MD @ 05/12/2020 10:07:53 PM Dictated by: Rigo Vidal MD @ 05/12/2020 22:07:58 (Electronically Signed)
== END 2020-05-13 00:48 | disposition home or self-care (01) ==
LOC: JP.ED 20:17
DX: I50.9 Heart failure, unspecified (principal); I48.91 Unspecified atrial fibrillation; G47.30 Sleep apnea, unspecified; E11.9 Type 2 diabetes mellitus without complications; E66.01 Morbid (severe) obesity due to excess calories; Z88.8 Allergy status to other drugs, medicaments and biological substances; Z90.49 Acquired absence of other specified parts of digestive tract; Z79.01 Long term (current) use of anticoagulants; Z79.84 Long term (current) use of oral hypoglycemic drugs; Z79.82 Long term (current) use of aspirin; Z79.899 Other long term (current) drug therapy; Z68.43 Body mass index [BMI] 50.0-59.9, adult
CPT/HCPCS: 36415; 71045; 80053; 84484; 85025; 93005; 93010; 99283; 99285-25

== ENCOUNTER 2020-06-10 07:00 | Inpatient (IN) | payer MEDICARE, MEDICAID ==
[2020-06-10] MEDS ORDERED: Sodium Chloride 0.9% 1,000 ML IV SCH (07:45)
[2020-06-10] MEDS ORDERED: Pantoprazole 40 MG Vial IVPUSH ONE (07:47)
--- NOTE | 2020-06-10 08:07 | EDM.PDOC ---
ED HPI GENERAL MEDICAL PROBLEM - General Chief Complaint: Gastrointestinal Problem Stated Complaint: COVID POSSIBLE Time Seen by Provider: 06/10/20 08:03 Source of Information: Reports: Patient, Family History Limitations: Reports: No Limitations - History of Present Illness INITIAL COMMENTS - FREE TEXT/NARRATIVE: pt has been confused the past 2 days. He did vomit this am and it was very brown in color. He looked like old blood. He does think his stools have been black. He is very lethrgic and falls asleep easily. According to his he has been incontinent of urine and stool. He is not aware he is passing either. He did not start vomiting until today. He has a history of etoh abuse but acording to his he has not drank for 2-3 monthes. He has a history of cirrohosis and espogeal varices. Onset: Other (pt was more confused today. ) Duration: Hour(s): Location: Reports: Abdomen, Generalized, Other (pt has been confused. ) Associated Symptoms: Reports: Confusion, Weakness Left Upper Abdomen Pain Score (Numeric/FACES): 2 - Related Data Allergies Allergy/AdvReac Type Severity Reaction Status Date / Time carvedilol [From Coreg] Allergy Other Verified 02/18/20 18:37 gabapentin Allergy Hives Verified 02/18/20 18:37 spironolactone Allergy Hives Verified 02/18/20 18:37 Home Meds: Home Meds Allopurinol [Zyloprim] 300 mg PO DAILY 02/18/20 [History] Colchicine [Colcrys] 0.6 mg PO TID PRN 02/18/20 [History] Diltiazem HCl [Diltiazem 24Hr ER] 180 mg PO DAILY 02/18/20 [History] Furosemide 40 mg PO DAILY 02/18/20 [History] Magnesium Oxide 800 mg PO BID 02/18/20 [History] Metoprolol Succinate 75 mg PO DAILY 02/18/20 [History] Potassium Chloride 40 meq PO BID 02/18/20 [History] Sertraline [Zoloft] 50 mg PO DAILY 02/18/20 [History] hydrALAZINE [Apresoline] 25 mg PO Q8H 02/18/20 [History] traZODone 100 mg PO BEDTIME 02/18/20 [History] Amiodarone [Cordarone] 200 mg PO DAILY 02/21/20 [History] Aspirin [Halfprin] 81 mg PO DAILY 02/21/20 [History] Baclofen 10 mg PO TID PRN 02/21/20 [History] Folic Acid 1 mg PO DAILY 02/21/20 [History] Meclizine [Antivert] 25 mg PO DAILY PRN 02/21/20 [History] Multivitamin [Multi-Vitamin Daily] 1 each PO DAILY 02/21/20 [History] Nitroglycerin [Nitrostat] 0.4 mg PO Q5M PRN 02/21/20 [History] Warfarin Sliding Scale [Coumadin Sliding Scale] 5 mg PO WEEKLY 02/21/20 [History] Warfarin Sodium [Jantoven] 7.5 mg PO DAILY 02/21/20 [History] metFORMIN HCl [Metformin HCl] 1,000 mg PO BID 02/21/20 [History] ondansetron HCL [Zofran] 4 mg PO Q8H PRN 02/21/20 [History] Fluticasone/Vilanterol [Breo Ellipta 100-25 MCG Inhalation Kit] 2 inhalation INH DAILY 02/23/20 [History] Acetaminophen [Tylenol] 1 - 2 tab PO Q4H 06/10/20 [History] Gabapentin [Neurontin] 300 mg PO BID 06/10/20 [History] Sennosides [Senna] 8.6 mg PO DAILY 06/10/20 [History] atorvaSTATin [Lipitor] 10 mg PO BEDTIME 06/10/20 [History] Past Medical History HEENT History: Reports: Other (See Below) Other HEENT History: esophageal varices Cardiovascular History: Reports: Afib, Heart Failure Psychiatric History: Reports: Addiction Endocrine/Metabolic History: Reports: Diabetes, Type II - Infectious Disease History Infectious Disease History: Reports: Chicken Pox - Past Surgical History GI Surgical History: Reports: Cholecystectomy Social & Family History - Family History Family Medical History: Unobtainable - Caffeine Use Caffeine Use: Reports: Soda Caffeine Use Comment: unable to obtain ED ROS GENERAL - Review of Systems Review Of Systems: See Below Constitutional: Reports: Malaise, Weakness, Diaphoresis HEENT: Reports: No Symptoms Respiratory: Reports: Shortness of Breath Cardiovascular: Reports: No Symptoms GI/Abdominal: Reports: Abdominal Pain, Black Stool, Hematemesis, Nausea, Vomiting : Reports: No Symptoms Musculoskeletal: Reports: No Symptoms Skin: Reports: No Symptoms Neurological: Reports: Confusion, Other (incontinent of stool and urine. ) Psychiatric: Reports: Depression ED EXAM, GI/ABD - Physical Exam Exam: See Below Text/Narrative:: pt is having vomioting this am and it appears to be coffee ground-- dark. The pt states he is having black stools on and off. According to his he is incontinent of stool and urine which is new foer him. He has been quite confused for the last 2 days. Exam Limited By: No Limitations General Appearance: Alert, Anxious, Mild Distress, Other (pupils are equal an reactive. ) Ears: Normal Canal, Normal TMs Throat/Mouth: Normal Inspection Head: Atraumatic Neck: Normal Inspection Respiratory/Chest: No Respiratory Distress Cardiovascular: Regular Rate, Rhythm, Tachycardia, Irregularly Irregular, Other (pt has a long history of atrial fib. ) GI/Abdominal Exam: Soft, Tender, Other (pt has mild tenderness in the upper abdoman. ) (Male) Exam: Deferred Rectal (Males) Exam: Deferred Back Exam: Normal Inspection Extremities: Other (pt has slight swelling but not more thjan usual. ) Neurological: Alert, Confused, Disoriented Psychiatric: Anxious Course - Vital Signs Last Recorded V/S: Last Vital Signs Temp 35.2 C L 06/10/20 07:21 Pulse 137 H 06/10/20 08:30 Resp 16 06/10/20 07:21 BP 172/119 H 06/10/20 08:30 Pulse Ox 96 06/10/20 07:21 - Orders/Labs/Meds Orders: Active Orders 24 hr Category Date Time Status Cardiac Monitoring [RC] .As Directed Care 06/10/20 07:17 Active EKG Documentation Completion [RC] ASDIRECTED Care 06/10/20 07:17 Active Chest 1V Frontal [CR] Stat Exams 06/10/20 08:01 Taken CULTURE BLOOD [BC] Urgent Lab 06/10/20 08:30 Received CULTURE BLOOD [BC] Urgent Lab 06/10/20 08:30 Received DD [D-DIMER QUANTITATIVE] [COAG] Stat Lab 06/10/20 08:30 Ordered DRUG SCREEN, URINE [URCHEM] Stat Lab 06/10/20 09:03 Ordered TROPONIN I [CHEM] Stat Lab 06/10/20 08:52 Ordered TYPE AND SCREEN [BBK] Stat Lab 06/10/20 07:37 Ordered Sodium Chloride 0.9% [Normal Saline] 1,000 ml Med 06/10/20 07:45 Active IV ASDIRECTED Blood Culture x2 Reflex Set [OM.PC] Urgent Oth 06/10/20 08:07 Ordered EKG 12 Lead [EK] Routine Ther 06/10/20 07:17 Ordered Medication Orders Sodium Chloride (Normal Saline) 1,000 mls @ 250 mls/hr IV ASDIRECTED JENISE Last Admin: 06/10/20 08:58 Dose: 250 mls/hr Documented by: ZAKIYA Labs: Laboratory Tests 06/10/20 06/10/20 06/10/20 Range/Units 07:30 07:30 07:30 WBC 8.2 (4.5-11.0) K/uL RBC 5.13 (4.30-5.90) M/uL Hgb 14.1 (12.0-15.0) g/dL Hct 46.1 (40.0-54.0) % MCV 90 (80-98) fL MCH 28 (27-31) pg MCHC 31 L (32-36) % Plt Count 176 (150-400) K/uL Neut % (Auto) 87 H (36-66) % Lymph % (Auto) 5 L (24-44) % [place] % (Auto) 7 H (2-6) % Eos % (Auto) 0 L (2-4) % Baso % (Auto) 1 (0-1) % PT 17.3 H (9.5-12.0) sec INR 1.60 H (0.80-1.20) Puncture Site ABG pH (7.350-7.450) ABG pCO2 (35.0-42.0) mmHg ABG pO2 (75.0-100.0) mmHg ABG HCO3 (22.0-26.0) mmol/L ABG Total CO2 (23.0-27.0) mmol/L ABG O2 Saturation (95.0-98.0) % ABG O2 Content (15.0-23.0) %vol ABG Base Excess mm/L ABG Hemoglobin (13.5-18.0) g/dL ABG Oxyhemoglobin % ABG Carboxyhemoglobin (0.0-1.6) % ABG Methemoglobin % Cortes Test O2 Delivery Device Sodium 138 L (140-148) mmol/L Potassium 3.7 (3.6-5.2) mmol/L Chloride 98 L (100-108) mmol/L Carbon Dioxide 30 (21-32) mmol/L Anion Gap 13.7 (5.0-14.0) mmol/L BUN 19 H (7-18) mg/dL Creatinine 1.4 H (0.8-1.3) mg/dL Est Cr Clr Drug Dosing 50.89 mL/min Estimated GFR (MDRD) 51 L (>60) Glucose 236 H (74-106) mg/dL Lactic Acid (0.4-2.0) mmol/L Calcium 8.7 (8.5-10.1) mg/dL Total Bilirubin 1.0 D (0.2-1.0) mg/dL AST 42 H (15-37) U/L ALT 27 (12-78) U/L Alkaline Phosphatase 146 H (46-116) U/L Ammonia (11-32) mmol/L NT-Pro-B Natriuret Pep (5-125) pg/mL Total Protein 8.2 (6.4-8.2) g/dL Albumin 3.0 L (3.4-5.0) g/dL Globulin 5.2 H (2.3-3.5) g/dL Albumin/Globulin Ratio 0.6 L (1.2-2.2) Urine Color (YELLOW) Urine Appearance (CLEAR) Urine pH (5.0-8.0) Ur Specific [place] (1.008-1.030) Urine Protein (NEGATIVE) mg/dL Urine Glucose (UA) (NEGATIVE) mg/dL Urine Ketones (NEGATIVE) mg/dL Urine Occult Blood (NEGATIVE) Urine Nitrite (NEGATIVE) Urine Bilirubin (NEGATIVE) Urine Urobilinogen (0.2-1.0) EU/dL Ur Leukocyte Esterase (NEGATIVE) Urine RBC (0-5) Urine WBC (0-5) Ur Epithelial Cells Urine Bacteria Ethyl Alcohol mg/dL SARS-CoV-2 RNA (ASA) (NEGATIVE) 06/10/20 06/10/20 06/10/20 Range/Units 07:30 07:30 07:30 WBC (4.5-11.0) K/uL RBC (4.30-5.90) M/uL Hgb (12.0-15.0) g/dL Hct (40.0-54.0) % MCV (80-98) fL MCH (27-31) pg MCHC (32-36) % Plt Count (150-400) K/uL Neut % (Auto) (36-66) % Lymph % (Auto) (24-44) % [place] % (Auto) (2-6) % Eos % (Auto) (2-4) % Baso % (Auto) (0-1) % PT (9.5-12.0) sec INR (0.80-1.20) Puncture Site ABG pH (7.350-7.450) ABG pCO2 (35.0-42.0) mmHg ABG pO2 (75.0-100.0) mmHg ABG HCO3 (22.0-26.0) mmol/L ABG Total CO2 (23.0-27.0) mmol/L ABG O2 Saturation (95.0-98.0) % ABG O2 Content (15.0-23.0) %vol ABG Base Excess mm/L ABG Hemoglobin (13.5-18.0) g/dL ABG Oxyhemoglobin % ABG Carboxyhemoglobin (0.0-1.6) % ABG Methemoglobin % Cortes Test O2 Delivery Device Sodium (140-148) mmol/L Potassium (3.6-5.2) mmol/L Chloride (100-108) mmol/L Carbon Dioxide (21-32) mmol/L Anion Gap (5.0-14.0) mmol/L BUN (7-18) mg/dL Creatinine (0.8-1.3) mg/dL Est Cr Clr Drug Dosing mL/min Estimated GFR (MDRD) (>60) Glucose (74-106) mg/dL Lactic Acid 2.9 H (0.4-2.0) mmol/L Calcium (8.5-10.1) mg/dL Total Bilirubin (0.2-1.0) mg/dL AST (15-37) U/L ALT (12-78) U/L Alkaline Phosphatase (46-116) U/L Ammonia 17 (11-32) mmol/L NT-Pro-B Natriuret Pep 788 H (5-125) pg/mL Total Protein (6.4-8.2) g/dL Albumin (3.4-5.0) g/dL Globulin (2.3-3.5) g/dL Albumin/Globulin Ratio (1.2-2.2) Urine Color (YELLOW) Urine Appearance (CLEAR) Urine pH (5.0-8.0) Ur Specific [place] (1.008-1.030) Urine Protein (NEGATIVE) mg/dL Urine Glucose (UA) (NEGATIVE) mg/dL Urine Ketones (NEGATIVE) mg/dL Urine Occult Blood (NEGATIVE) Urine Nitrite (NEGATIVE) Urine Bilirubin (NEGATIVE) Urine Urobilinogen (0.2-1.0) EU/dL Ur Leukocyte Esterase (NEGATIVE) Urine RBC (0-5) Urine WBC (0-5) Ur Epithelial Cells Urine Bacteria Ethyl Alcohol mg/dL SARS-CoV-2 RNA (ASA) (NEGATIVE) 06/10/20 06/10/20 06/10/20 Range/Units 07:30 07:33 07:51 WBC (4.5-11.0) K/uL RBC (4.30-5.90) M/uL Hgb (12.0-15.0) g/dL Hct (40.0-54.0) % MCV (80-98) fL MCH (27-31) pg MCHC (32-36) % Plt Count (150-400) K/uL Neut % (Auto) (36-66) % Lymph % (Auto) (24-44) % [place] % (Auto) (2-6) % Eos % (Auto) (2-4) % Baso % (Auto) (0-1) % PT (9.5-12.0) sec INR (0.80-1.20) Puncture Site Rt radial ABG pH 7.464 H (7.350-7.450) ABG pCO2 39.1 (35.0-42.0) mmHg ABG pO2 79.4 (75.0-100.0) mmHg ABG HCO3 27.7 H (22.0-26.0) mmol/L ABG Total CO2 23.8 (23.0-27.0) mmol/L ABG O2 Saturation 96.1 (95.0-98.0) % ABG O2 Content 19.3 (15.0-23.0) %vol ABG Base Excess 4.2 mm/L ABG Hemoglobin 14.7 (13.5-18.0) g/dL ABG Oxyhemoglobin 93.5 % ABG Carboxyhemoglobin 1.9 H (0.0-1.6) % ABG Methemoglobin 0.8 % Cortes Test Passed O2 Delivery Device Room air Sodium (140-148) mmol/L Potassium (3.6-5.2) mmol/L Chloride (100-108) mmol/L Carbon Dioxide (21-32) mmol/L Anion Gap (5.0-14.0) mmol/L BUN (7-18) mg/dL Creatinine (0.8-1.3) mg/dL Est Cr Clr Drug Dosing mL/min Estimated GFR (MDRD) (>60) Glucose (74-106) mg/dL Lactic Acid (0.4-2.0) mmol/L Calcium (8.5-10.1) mg/dL Total Bilirubin (0.2-1.0) mg/dL AST (15-37) U/L ALT (12-78) U/L Alkaline Phosphatase (46-116) U/L Ammonia (11-32) mmol/L NT-Pro-B Natriuret Pep (5-125) pg/mL Total Protein (6.4-8.2) g/dL Albumin (3.4-5.0) g/dL Globulin (2.3-3.5) g/dL Albumin/Globulin Ratio (1.2-2.2) Urine Color Yellow (YELLOW) Urine Appearance Clear (CLEAR) Urine pH 7.0 (5.0-8.0) Ur Specific [place] 1.025 (1.008-1.030) Urine Protein >=300 H (NEGATIVE) mg/dL Urine Glucose (UA) 100 H (NEGATIVE) mg/dL Urine Ketones Negative (NEGATIVE) mg/dL Urine Occult Blood Small H (NEGATIVE) Urine Nitrite Negative (NEGATIVE) Urine Bilirubin Small H (NEGATIVE) Urine Urobilinogen 2.0 H (0.2-1.0) EU/dL Ur Leukocyte Esterase Negative (NEGATIVE) Urine RBC 5-10 H (0-5) Urine WBC 0-5 (0-5) Ur Epithelial Cells Few Urine Bacteria Few Ethyl Alcohol < 3 mg/dL SARS-CoV-2 RNA (ASA) (NEGATIVE) 06/10/20 Range/Units 08:02 WBC (4.5-11.0) K/uL RBC (4.30-5.90) M/uL Hgb (12.0-15.0) g/dL Hct (40.0-54.0) % MCV (80-98) fL MCH (27-31) pg MCHC (32-36) % Plt Count (150-400) K/uL Neut % (Auto) (36-66) % Lymph % (Auto) (24-44) % [place] % (Auto) (2-6) % Eos % (Auto) (2-4) % Baso % (Auto) (0-1) % PT (9.5-12.0) sec INR (0.80-1.20) Puncture Site ABG pH (7.350-7.450) ABG pCO2 (35.0-42.0) mmHg ABG pO2 (75.0-100.0) mmHg ABG HCO3 (22.0-26.0) mmol/L ABG Total CO2 (23.0-27.0) mmol/L ABG O2 Saturation (95.0-98.0) % ABG O2 Content (15.0-23.0) %vol ABG Base Excess mm/L ABG Hemoglobin (13.5-18.0) g/dL ABG Oxyhemoglobin % ABG Carboxyhemoglobin (0.0-1.6) % ABG Methemoglobin % Cortes Test O2 Delivery Device Sodium (140-148) mmol/L Potassium (3.6-5.2) mmol/L Chloride (100-108) mmol/L Carbon Dioxide (21-32) mmol/L Anion Gap (5.0-14.0) mmol/L BUN (7-18) mg/dL Creatinine (0.8-1.3) mg/dL Est Cr Clr Drug Dosing mL/min Estimated GFR (MDRD) (>60) Glucose (74-106) mg/dL Lactic Acid (0.4-2.0) mmol/L Calcium (8.5-10.1) mg/dL Total Bilirubin (0.2-1.0) mg/dL AST (15-37) U/L ALT (12-78) U/L Alkaline Phosphatase (46-116) U/L Ammonia (11-32) mmol/L NT-Pro-B Natriuret Pep (5-125) pg/mL Total Protein (6.4-8.2) g/dL Albumin (3.4-5.0) g/dL Globulin (2.3-3.5) g/dL Albumin/Globulin Ratio (1.2-2.2) Urine Color (YELLOW) Urine Appearance (CLEAR) Urine pH (5.0-8.0) Ur Specific [place] (1.008-1.030) Urine Protein (NEGATIVE) mg/dL Urine Glucose (UA) (NEGATIVE) mg/dL Urine Ketones (NEGATIVE) mg/dL Urine Occult Blood (NEGATIVE) Urine Nitrite (NEGATIVE) Urine Bilirubin (NEGATIVE) Urine Urobilinogen (0.2-1.0) EU/dL Ur Leukocyte Esterase (NEGATIVE) Urine RBC (0-5) Urine WBC (0-5) Ur Epithelial Cells Urine Bacteria Ethyl Alcohol mg/dL SARS-CoV-2 RNA (ASA) Negative (NEGATIVE) Meds: Medications Generic Name Dose Route Start Last Admin Trade Name Freq PRN Reason Stop Dose Admin Sodium Chloride 1,000 mls @ 250 mls/hr 06/10/20 07:45 06/10/20 08:58 Normal Saline IV 250 mls/hr ASDIRECTED JENISE Administration Discontinued Medications Generic Name Dose Route Start Last Admin Trade Name Freq PRN Reason Stop Dose Admin Ondansetron HCl 4 mg 06/10/20 08:40 06/10/20 08:59 Zofran IVPUSH 06/10/20 08:41 4 mg ONETIME ONE Administration Pantoprazole Sodium 40 mg 06/10/20 07:47 06/10/20 08:52 Protonix Iv IVPUSH 06/10/20 07:48 40 mg ONETIME ONE Administration - Re-Assessments/Exams Free Text/Narrative Re-Assessment/Exam: 06/10/20 09:06 because of the confusion he had a cat scan of the head which was neg. His chest xray did not look different. He was covid neg. 06/10/20 09:18 Departure - Departure Time of Disposition: 09:18 Disposition: Admitted As Inpatient 65 Condition: Fair Clinical Impression: Intoxication by drug, Dehydration, Confusion, Gastrointestinal irritation - Discharge Information Referrals: PCP,None [Primary Care Provider] - Forms: ED Department Discharge Care Plan Goals: admit to Dr Billy. Sepsis Event Note (ED) - Evaluation Sepsis Screening Result: No Definite Risk - Focused Exam Vital Signs: Vital Signs Temp Pulse Resp BP Pulse Ox 06/10/20 08:30 137 H 172/119 H 06/10/20 07:30 63 181/107 H 06/10/20 07:21 35.2 C L 126 H 16 191/100 H 96 06/10/20 07:05 35.2 C L 82 16 191/100 H 97 - My Orders Last 24 Hours: My Active Orders 06/10/20 07:17 Cardiac Monitoring [RC] .As Directed EKG Documentation Completion [RC] ASDIRECTED EKG 12 Lead [EK] Routine 06/10/20 07:37 TYPE AND SCREEN [BBK] Stat 06/10/20 07:45 Sodium Chloride 0.9% [Normal Saline] 1,000 ml IV ASDIRECTED 06/10/20 08:01 Chest 1V Frontal [CR] Stat 06/10/20 08:07 Blood Culture x2 Reflex Set [OM.PC] Urgent 06/10/20 08:30 CULTURE BLOOD [BC] Urgent CULTURE BLOOD [BC] Urgent DD [D-DIMER QUANTITATIVE] [COAG] Stat 06/10/20 08:52 TROPONIN I [CHEM] Stat 06/10/20 09:03 DRUG SCREEN, URINE [URCHEM] Stat - Assessment/Plan Last 24 Hours: My Active Orders 06/10/20 07:17 Cardiac Monitoring [RC] .As Directed EKG Documentation Completion [RC] ASDIRECTED EKG 12 Lead [EK] Routine 06/10/20 07:37 TYPE AND SCREEN [BBK] Stat 06/10/20 07:45 Sodium Chloride 0.9% [Normal Saline] 1,000 ml IV ASDIRECTED 06/10/20 08:01 Chest 1V Frontal [CR] Stat 06/10/20 08:07 Blood Culture x2 Reflex Set [OM.PC] Urgent 06/10/20 08:30 CULTURE BLOOD [BC] Urgent CULTURE BLOOD [BC] Urgent DD [D-DIMER QUANTITATIVE] [COAG] Stat 06/10/20 08:52 TROPONIN I [CHEM] Stat 06/10/20 09:03 DRUG SCREEN, URINE [URCHEM] Stat
--- NOTE | 2020-06-10 08:39 | CRLCT ---
INDICATION: Confusion COMPARISON: A similar examination dated February 21, 2020 TECHNIQUE: CT examination of the head was performed as axial sections without intravenous contrast. Images were obtained from the vertex of the skull through the skull base. Please note that all CT scans at this facility use dose modulation, iterative reconstruction, and/or weight-based dosing when appropriate to reduce radiation dose to as low as reasonably achievable. FINDINGS: The brain shows no sign of mass lesion, mass effect, hemorrhage, or edema. There are involutional changes. There is moderate cortical atrophy and there is moderate white matter disease. There is no hydrocephalus. The visualized portions of the orbits are normal in appearance. The osseous structures are normal in appearance with no sign of abnormality in the skull base or calvarium. IMPRESSION: Moderate involutional changes. The study is limited by motion but no acute focal finding when compared to February 21, [address] Please note that all CT scans at this facility use dose modulation, iterative reconstruction, and/or weight-based dosing when appropriate to reduce radiation dose to as low as reasonably achievable. Dictated by Issac Conteh MD @ Jun 10 2020 8:36AM Signed by Dr. Issac Conteh @ Jun 10 2020 8:39AM
[2020-06-10] MEDS ORDERED: Ondansetron 4 MG/2 ML SDV IVPUSH ONE (08:40)
--- NOTE | 2020-06-10 09:12 | CR ---
CHEST: Portable 06/10/2020 at 11:00 AM CLINICAL HISTORY:SOB COMPARISON:05/12/2020 FINDINGS: The heart is enlarged. Pulmonary vascularity is normal. There is no infiltrate effusion or pneumothorax. There is some streaky density in the left infrahilar region similar to prior study likely related to scarring. There has been previous granulomatous exposure. There are atherosclerotic changes in the aorta. Impression: Cardiomegaly No acute cardiopulmonary process.
[2020-06-10] MEDS ORDERED: EPINEPHrine 1 MG/ML SDV ONE (10:12)
[2020-06-10] MEDS ORDERED: Propofol 200 MG/20 ML SDV ONE (10:19)
[2020-06-10] MEDS ORDERED: Ondansetron 4 MG/2 ML SDV IVPUSH STA (12:53)
[2020-06-10] MEDS ORDERED: oxyCODONE 5 MG Tab PO PRN (13:28)
[2020-06-10] MEDS ORDERED: LORazepam 2 MG/ML SDV IV PRN (13:28)
[2020-06-10] MEDS ORDERED: Acetaminophen 325 MG Tab PO PRN (13:28)
[2020-06-10] MEDS ORDERED: Ondansetron 4 MG Tab.DIS PO PRN (13:28)
[2020-06-10] MEDS ORDERED: Ondansetron 4 MG/2 ML SDV IV PRN (13:28)
[2020-06-10] MEDS ORDERED: Colchicine 0.6 MG Tab PO PRN (13:35)
[2020-06-10] MEDS ORDERED: Nitroglycerin 0.4 MG Tab.SL SL PRN (13:35)
[2020-06-10] MEDS ORDERED: Baclofen 10 MG Tab PO PRN (13:35)
[2020-06-10] MEDS ORDERED: Non-Formulary Medication 1 Each (Ondansetron Hcl [Zofran] 4 MG) PO PRN (13:35)
[2020-06-10] MEDS ORDERED: Warfarin 5 MG Tab PO SCH (13:45)
[2020-06-10] MEDS ORDERED: METOPROLOL SUCCINATE PO SCH (13:45)
[2020-06-10] MEDS ORDERED: Diltiazem 120 MG Cap.CD PO SCH (13:45)
[2020-06-10] MEDS ORDERED: VILANTEROL INH SCH (13:45)
[2020-06-10] MEDS ORDERED: FLUTICASONE INH SCH (13:45)
[2020-06-10] MEDS ORDERED: Warfarin Sliding Scale PO SCH (13:45)
--- NOTE | 2020-06-10 13:49 | PCM.HP.2 ---
H&P History of Present Illness - General Date of Service: 06/10/20 Admit Problem/Dx: Admission Diagnosis/Problem Admission Diagnosis/Problem Encephalopathy Source of Information: Other (ED signout). No: Patient, Family - History of Present Illness Initial Comments - Free Text/Narative: Marino Conrad is a 64 yo male admitted to [facility] from the ED on 10 June 2020 for 2 day history of encephalopathy. The paitent, per the report from the to the ER, has been incontinent of stool, urine and has been minimally responsive for that time. Per history the patient has myriad medical problems including prior alcoholism from which is is reportedly abstinent x 3 mos. The patient's BAL at < 0.01 at time of admission confirms this, at least for the past 48 hours or so. The patient has a CRYSTALLOGRAPHER, his brother, who is supposedly managing meds and routine cares. However it is unclear whether the patient has been taking the meds as prescribed. His notes that he has, over the past few days, been questionably compliant with medication. The patient for his part is arousable but otherwise unable to offer ANY meaningful history on interview. Family was not available at that time either. RN notes that the patient is in atrial fibrillation with RVR. He is also nauseated. ED suspects that the patient has been goofing up a number of his medications which may have triggered the episode of encephalopathy. Admission to ICU is requested for evaluation and management of the encephalopathy Left Upper Abdomen Pain Score (Numeric/FACES): 2 - Related Data Allergies/Adverse Reactions: Allergies Allergy/AdvReac Type Severity Reaction Status Date / Time carvedilol [From Coreg] Allergy Other Verified 02/18/20 18:37 spironolactone Allergy Hives Verified 02/18/20 18:37 Home Medications: Home Meds Allopurinol [Zyloprim] 300 mg PO DAILY 02/18/20 [History] Colchicine [Colcrys] 0.6 mg PO TID PRN 02/18/20 [History] Diltiazem HCl [Diltiazem 24Hr ER] 180 mg PO DAILY 02/18/20 [History] Furosemide 40 mg PO DAILY 02/18/20 [History] Magnesium Oxide 800 mg PO BID 02/18/20 [History] Metoprolol Succinate 75 mg PO DAILY 02/18/20 [History] Sertraline [Zoloft] 50 mg PO DAILY 02/18/20 [History] hydrALAZINE [Apresoline] 25 mg PO Q8H 02/18/20 [History] traZODone 100 mg PO BEDTIME 02/18/20 [History] Amiodarone [Cordarone] 200 mg PO DAILY 02/21/20 [History] Baclofen 10 mg PO TID PRN 02/21/20 [History] Folic Acid 1 mg PO DAILY 02/21/20 [History] Multivitamin [Multi-Vitamin Daily] 1 each PO DAILY 02/21/20 [History] Nitroglycerin [Nitrostat] 0.4 mg PO Q5M PRN 02/21/20 [History] Warfarin Sliding Scale [Coumadin Sliding Scale] 5 mg PO ASDIRECTED 02/21/20 [History] Warfarin Sodium [Jantoven] 7.5 mg PO ASDIRECTED 02/21/20 [History] metFORMIN HCl [Metformin HCl] 1,000 mg PO BID 02/21/20 [History] ondansetron HCL [Zofran] 4 mg PO Q8H PRN 02/21/20 [History] Fluticasone/Vilanterol [Breo Ellipta 100-25 MCG Inhalation Kit] 2 inhalation INH DAILY 02/23/20 [History] Acetaminophen [Tylenol] 1 - 2 tab PO Q4H PRN 06/10/20 [History] Gabapentin [Neurontin] 300 mg PO BID 06/10/20 [History] atorvaSTATin [Lipitor] 10 mg PO BEDTIME 06/10/20 [History] Past Medical History HEENT History: Reports: Other (See Below) Other HEENT History: esophageal varices Cardiovascular History: Reports: Afib, Heart Failure Gastrointestinal History: Reports: Other (See Below) Other Gastrointestinal History: esophageal varices (one banded on 06/10/2020) Psychiatric History: Reports: Addiction, Other (See Below) Other Psychiatric History: past ETOH addiction. states has not drank for 2.5 months Endocrine/Metabolic History: Reports: Diabetes, Type II, Obesity/BMI 30+ - Infectious Disease History Infectious Disease History: Reports: Chicken Pox - Past Surgical History GI Surgical History: Reports: Cholecystectomy Social & Family History - Family History Family Medical History: Unobtainable - Tobacco Use Tobacco Use Status *Q: Never Tobacco User Second Hand Smoke Exposure: No - Caffeine Use Caffeine Use: Reports: Soda Caffeine Use Comment: unable to obtain - Recreational Drug Use Recreational Drug Use: No H&P Review of Systems - Review of Systems: Review Of Systems: Comprehensive ROS is negative, except as noted in HPI. Exam - Exam Exam: See Below - Vital Signs Vital Signs: Last Vital Signs Temp 96.6 F L 06/10/20 11:59 Pulse 93 06/10/20 11:59 Resp 10 L 06/10/20 11:59 BP 163/103 H 06/10/20 11:59 Pulse Ox 99 06/10/20 11:59 Weight: 432 lb 1.696 oz - Exam Quality Assessment: Supplemental Oxygen, DVT Prophylaxis. No: Central Line/PICC, Urinary Catheter General: Alert, Lethargic HEENT: PERRLA Neck: Supple, Trachea Midline Lungs: Clear to Auscultation, Normal Respiratory Effort Cardiovascular: Normal S1, Normal S2, Irregular Rhythm, Tachycardia. No: Systolic Murmur, Diastolic Murmur GI/Abdominal Exam: Normal Bowel Sounds, Soft, Non-Tender, Other (Morbidly obese) Back Exam: Normal Inspection Extremities: Normal Inspection, Non-Tender, Other (serious edema) Neurological: Reflexes Equal Bilateral DTR: 2+: Patella (L), Patella (R) Psychiatric: No: Alert, Normal Affect, Normal Mood - Patient Data Lab Results Last 24 hrs: Laboratory Results - last 24 hr 06/10/20 06/10/20 06/10/20 Range/Units 07:30 07:30 07:30 WBC 8.2 (4.5-11.0) K/uL RBC 5.13 (4.30-5.90) M/uL Hgb 14.1 (12.0-15.0) g/dL Hct 46.1 (40.0-54.0) % MCV 90 (80-98) fL MCH 28 (27-31) pg MCHC 31 L (32-36) % Plt Count 176 (150-400) K/uL Neut % (Auto) 87 H (36-66) % Lymph % (Auto) 5 L (24-44) % Lanier % (Auto) 7 H (2-6) % Eos % (Auto) 0 L (2-4) % Baso % (Auto) 1 (0-1) % PT 17.3 H (9.5-12.0) sec INR 1.60 H (0.80-1.20) D-Dimer, Quantitative (0.0-500.0) ng/mL Puncture Site ABG pH (7.350-7.450) ABG pCO2 (35.0-42.0) mmHg ABG pO2 (75.0-100.0) mmHg ABG HCO3 (22.0-26.0) mmol/L ABG Total CO2 (23.0-27.0) mmol/L ABG O2 Saturation (95.0-98.0) % ABG O2 Content (15.0-23.0) %vol ABG Base Excess mm/L ABG Hemoglobin (13.5-18.0) g/dL ABG Oxyhemoglobin % ABG Carboxyhemoglobin (0.0-1.6) % ABG Methemoglobin % Cortes Test O2 Delivery Device Sodium 138 L (140-148) mmol/L Potassium 3.7 (3.6-5.2) mmol/L Chloride 98 L (100-108) mmol/L Carbon Dioxide 30 (21-32) mmol/L Anion Gap 13.7 (5.0-14.0) mmol/L BUN 19 H (7-18) mg/dL Creatinine 1.4 H (0.8-1.3) mg/dL Est Cr Clr Drug Dosing 50.89 mL/min Estimated GFR (MDRD) 51 L (>60) Glucose 236 H (74-106) mg/dL Lactic Acid (0.4-2.0) mmol/L Calcium 8.7 (8.5-10.1) mg/dL Magnesium (1.8-2.4) mg/dL Total Bilirubin 1.0 D (0.2-1.0) mg/dL AST 42 H (15-37) U/L ALT 27 (12-78) U/L Alkaline Phosphatase 146 H (46-116) U/L Ammonia (11-32) mmol/L Troponin I (0.000-0.056) ng/mL NT-Pro-B Natriuret Pep (5-125) pg/mL Total Protein 8.2 (6.4-8.2) g/dL Albumin 3.0 L (3.4-5.0) g/dL Globulin 5.2 H (2.3-3.5) g/dL Albumin/Globulin Ratio 0.6 L (1.2-2.2) Urine Color (YELLOW) Urine Appearance (CLEAR) Urine pH (5.0-8.0) Ur Specific [place] (1.008-1.030) Urine Protein (NEGATIVE) mg/dL Urine Glucose (UA) (NEGATIVE) mg/dL Urine Ketones (NEGATIVE) mg/dL Urine Occult Blood (NEGATIVE) Urine Nitrite (NEGATIVE) Urine Bilirubin (NEGATIVE) Urine Urobilinogen (0.2-1.0) EU/dL Ur Leukocyte Esterase (NEGATIVE) Urine RBC (0-5) Urine WBC (0-5) Ur Epithelial Cells Urine Bacteria Urine Opiates Screen (NEGATIVE) Ur Oxycodone Screen (NEGATIVE) Urine Methadone Screen (NEGATIVE) Ur Propoxyphene Screen (NEGATIVE) Ur Barbiturates Screen (NEGATIVE) Ur Tricyclics Screen (NEGATIVE) Ur Phencyclidine Scrn (NEGATIVE) Ur Amphetamine Screen (NEGATIVE) U Methamphetamines Scrn (NEGATIVE) Urine MDMA Screen (NEGATIVE) U Benzodiazepines Scrn (NEGATIVE) U Cocaine Metab Screen (NEGATIVE) U Marijuana (THC) Screen (NEGATIVE) Ethyl Alcohol mg/dL SARS-CoV-2 RNA (ASA) (NEGATIVE) Blood Type Gel Antibody Screen 06/10/20 06/10/20 06/10/20 Range/Units 07:30 07:30 07:30 WBC (4.5-11.0) K/uL RBC (4.30-5.90) M/uL Hgb (12.0-15.0) g/dL Hct (40.0-54.0) % MCV (80-98) fL MCH (27-31) pg MCHC (32-36) % Plt Count (150-400) K/uL Neut % (Auto) (36-66) % Lymph % (Auto) (24-44) % Lanier % (Auto) (2-6) % Eos % (Auto) (2-4) % Baso % (Auto) (0-1) % PT (9.5-12.0) sec INR (0.80-1.20) D-Dimer, Quantitative (0.0-500.0) ng/mL Puncture Site ABG pH (7.350-7.450) ABG pCO2 (35.0-42.0) mmHg ABG pO2 (75.0-100.0) mmHg ABG HCO3 (22.0-26.0) mmol/L ABG Total CO2 (23.0-27.0) mmol/L ABG O2 Saturation (95.0-98.0) % ABG O2 Content (15.0-23.0) %vol ABG Base Excess mm/L ABG Hemoglobin (13.5-18.0) g/dL ABG Oxyhemoglobin % ABG Carboxyhemoglobin (0.0-1.6) % ABG Methemoglobin % Cortes Test O2 Delivery Device Sodium (140-148) mmol/L Potassium (3.6-5.2) mmol/L Chloride (100-108) mmol/L Carbon Dioxide (21-32) mmol/L Anion Gap (5.0-14.0) mmol/L BUN (7-18) mg/dL Creatinine (0.8-1.3) mg/dL Est Cr Clr Drug Dosing mL/min Estimated GFR (MDRD) (>60) Glucose (74-106) mg/dL Lactic Acid 2.9 H (0.4-2.0) mmol/L Calcium (8.5-10.1) mg/dL Magnesium (1.8-2.4) mg/dL Total Bilirubin (0.2-1.0) mg/dL AST (15-37) U/L ALT (12-78) U/L Alkaline Phosphatase (46-116) U/L Ammonia (11-32) mmol/L Troponin I (0.000-0.056) ng/mL NT-Pro-B Natriuret Pep 788 H (5-125) pg/mL Total Protein (6.4-8.2) g/dL Albumin (3.4-5.0) g/dL Globulin (2.3-3.5) g/dL Albumin/Globulin Ratio (1.2-2.2) Urine Color (YELLOW) Urine Appearance (CLEAR) Urine pH (5.0-8.0) Ur Specific [place] (1.008-1.030) Urine Protein (NEGATIVE) mg/dL Urine Glucose (UA) (NEGATIVE) mg/dL Urine Ketones (NEGATIVE) mg/dL Urine Occult Blood (NEGATIVE) Urine Nitrite (NEGATIVE) Urine Bilirubin (NEGATIVE) Urine Urobilinogen (0.2-1.0) EU/dL Ur Leukocyte Esterase (NEGATIVE) Urine RBC (0-5) Urine WBC (0-5) Ur Epithelial Cells Urine Bacteria Urine Opiates Screen (NEGATIVE) Ur Oxycodone Screen (NEGATIVE) Urine Methadone Screen (NEGATIVE) Ur Propoxyphene Screen (NEGATIVE) Ur Barbiturates Screen (NEGATIVE) Ur Tricyclics Screen (NEGATIVE) Ur Phencyclidine Scrn (NEGATIVE) Ur Amphetamine Screen (NEGATIVE) U Methamphetamines Scrn (NEGATIVE) Urine MDMA Screen (NEGATIVE) U Benzodiazepines Scrn (NEGATIVE) U Cocaine Metab Screen (NEGATIVE) U Marijuana (THC) Screen (NEGATIVE) Ethyl Alcohol mg/dL SARS-CoV-2 RNA (ASA) (NEGATIVE) Blood Type A NEGATIVE Gel Antibody Screen Negative 06/10/20 06/10/20 06/10/20 Range/Units 07:30 07:30 07:30 WBC (4.5-11.0) K/uL RBC (4.30-5.90) M/uL Hgb (12.0-15.0) g/dL Hct (40.0-54.0) % MCV (80-98) fL MCH (27-31) pg MCHC (32-36) % Plt Count (150-400) K/uL Neut % (Auto) (36-66) % Lymph % (Auto) (24-44) % Lanier % (Auto) (2-6) % Eos % (Auto) (2-4) % Baso % (Auto) (0-1) % PT (9.5-12.0) sec INR (0.80-1.20) D-Dimer, Quantitative (0.0-500.0) ng/mL Puncture Site ABG pH (7.350-7.450) ABG pCO2 (35.0-42.0) mmHg ABG pO2 (75.0-100.0) mmHg ABG HCO3 (22.0-26.0) mmol/L ABG Total CO2 (23.0-27.0) mmol/L ABG O2 Saturation (95.0-98.0) % ABG O2 Content (15.0-23.0) %vol ABG Base Excess mm/L ABG Hemoglobin (13.5-18.0) g/dL ABG Oxyhemoglobin % ABG Carboxyhemoglobin (0.0-1.6) % ABG Methemoglobin % Cortes Test O2 Delivery Device Sodium (140-148) mmol/L Potassium (3.6-5.2) mmol/L Chloride (100-108) mmol/L Carbon Dioxide (21-32) mmol/L Anion Gap (5.0-14.0) mmol/L BUN (7-18) mg/dL Creatinine (0.8-1.3) mg/dL Est Cr Clr Drug Dosing mL/min Estimated GFR (MDRD) (>60) Glucose (74-106) mg/dL Lactic Acid (0.4-2.0) mmol/L Calcium (8.5-10.1) mg/dL Magnesium 1.3 L D (1.8-2.4) mg/dL Total Bilirubin (0.2-1.0) mg/dL AST (15-37) U/L ALT (12-78) U/L Alkaline Phosphatase (46-116) U/L Ammonia 17 (11-32) mmol/L Troponin I (0.000-0.056) ng/mL NT-Pro-B Natriuret Pep (5-125) pg/mL Total Protein (6.4-8.2) g/dL Albumin (3.4-5.0) g/dL Globulin (2.3-3.5) g/dL Albumin/Globulin Ratio (1.2-2.2) Urine Color (YELLOW) Urine Appearance (CLEAR) Urine pH (5.0-8.0) Ur Specific [place] (1.008-1.030) Urine Protein (NEGATIVE) mg/dL Urine Glucose (UA) (NEGATIVE) mg/dL Urine Ketones (NEGATIVE) mg/dL Urine Occult Blood (NEGATIVE) Urine Nitrite (NEGATIVE) Urine Bilirubin (NEGATIVE) Urine Urobilinogen (0.2-1.0) EU/dL Ur Leukocyte Esterase (NEGATIVE) Urine RBC (0-5) Urine WBC (0-5) Ur Epithelial Cells Urine Bacteria Urine Opiates Screen (NEGATIVE) Ur Oxycodone Screen (NEGATIVE) Urine Methadone Screen (NEGATIVE) Ur Propoxyphene Screen (NEGATIVE) Ur Barbiturates Screen (NEGATIVE) Ur Tricyclics Screen (NEGATIVE) Ur Phencyclidine Scrn (NEGATIVE) Ur Amphetamine Screen (NEGATIVE) U Methamphetamines Scrn (NEGATIVE) Urine MDMA Screen (NEGATIVE) U Benzodiazepines Scrn (NEGATIVE) U Cocaine Metab Screen (NEGATIVE) U Marijuana (THC) Screen (NEGATIVE) Ethyl Alcohol < 3 mg/dL SARS-CoV-2 RNA (ASA) (NEGATIVE) Blood Type Gel Antibody Screen 06/10/20 06/10/20 06/10/20 Range/Units 07:33 07:51 08:02 WBC (4.5-11.0) K/uL RBC (4.30-5.90) M/uL Hgb (12.0-15.0) g/dL Hct (40.0-54.0) % MCV (80-98) fL MCH (27-31) pg MCHC (32-36) % Plt Count (150-400) K/uL Neut % (Auto) (36-66) % Lymph % (Auto) (24-44) % Lanier % (Auto) (2-6) % Eos % (Auto) (2-4) % Baso % (Auto) (0-1) % PT (9.5-12.0) sec INR (0.80-1.20) D-Dimer, Quantitative (0.0-500.0) ng/mL Puncture Site Rt radial ABG pH 7.464 H (7.350-7.450) ABG pCO2 39.1 (35.0-42.0) mmHg ABG pO2 79.4 (75.0-100.0) mmHg ABG HCO3 27.7 H (22.0-26.0) mmol/L ABG Total CO2 23.8 (23.0-27.0) mmol/L ABG O2 Saturation 96.1 (95.0-98.0) % ABG O2 Content 19.3 (15.0-23.0) %vol ABG Base Excess 4.2 mm/L ABG Hemoglobin 14.7 (13.5-18.0) g/dL ABG Oxyhemoglobin 93.5 % ABG Carboxyhemoglobin 1.9 H (0.0-1.6) % ABG Methemoglobin 0.8 % Cortes Test Passed O2 Delivery Device Room air Sodium (140-148) mmol/L Potassium (3.6-5.2) mmol/L Chloride (100-108) mmol/L Carbon Dioxide (21-32) mmol/L Anion Gap (5.0-14.0) mmol/L BUN (7-18) mg/dL Creatinine (0.8-1.3) mg/dL Est Cr Clr Drug Dosing mL/min Estimated GFR (MDRD) (>60) Glucose (74-106) mg/dL Lactic Acid (0.4-2.0) mmol/L Calcium (8.5-10.1) mg/dL Magnesium (1.8-2.4) mg/dL Total Bilirubin (0.2-1.0) mg/dL AST (15-37) U/L ALT (12-78) U/L Alkaline Phosphatase (46-116) U/L Ammonia (11-32) mmol/L Troponin I (0.000-0.056) ng/mL NT-Pro-B Natriuret Pep (5-125) pg/mL Total Protein (6.4-8.2) g/dL Albumin (3.4-5.0) g/dL Globulin (2.3-3.5) g/dL Albumin/Globulin Ratio (1.2-2.2) Urine Color Yellow (YELLOW) Urine Appearance Clear (CLEAR) Urine pH 7.0 (5.0-8.0) Ur Specific [place] 1.025 (1.008-1.030) Urine Protein >=300 H (NEGATIVE) mg/dL Urine Glucose (UA) 100 H (NEGATIVE) mg/dL Urine Ketones Negative (NEGATIVE) mg/dL Urine Occult Blood Small H (NEGATIVE) Urine Nitrite Negative (NEGATIVE) Urine Bilirubin Small H (NEGATIVE) Urine Urobilinogen 2.0 H (0.2-1.0) EU/dL Ur Leukocyte Esterase Negative (NEGATIVE) Urine RBC 5-10 H (0-5) Urine WBC 0-5 (0-5) Ur Epithelial Cells Few Urine Bacteria Few Urine Opiates Screen (NEGATIVE) Ur Oxycodone Screen (NEGATIVE) Urine Methadone Screen (NEGATIVE) Ur Propoxyphene Screen (NEGATIVE) Ur Barbiturates Screen (NEGATIVE) Ur Tricyclics Screen (NEGATIVE) Ur Phencyclidine Scrn (NEGATIVE) Ur Amphetamine Screen (NEGATIVE) U Methamphetamines Scrn (NEGATIVE) Urine MDMA Screen (NEGATIVE) U Benzodiazepines Scrn (NEGATIVE) U Cocaine Metab Screen (NEGATIVE) U Marijuana (THC) Screen (NEGATIVE) Ethyl Alcohol mg/dL SARS-CoV-2 RNA (ASA) Negative (NEGATIVE) Blood Type Gel Antibody Screen 11/06/20 11/06/20 11/06/20 Range/Units 09:03 09:05 09:05 WBC (4.5-11.0) K/uL RBC (4.30-5.90) M/uL Hgb (12.0-15.0) g/dL Hct (40.0-54.0) % MCV (80-98) fL MCH (27-31) pg MCHC (32-36) % Plt Count (150-400) K/uL Neut % (Auto) (36-66) % Lymph % (Auto) (24-44) % Lanier % (Auto) (2-6) % Eos % (Auto) (2-4) % Baso % (Auto) (0-1) % PT (9.5-12.0) sec INR (0.80-1.20) D-Dimer, Quantitative 995.74 H (0.0-500.0) ng/mL Puncture Site ABG pH (7.350-7.450) ABG pCO2 (35.0-42.0) mmHg ABG pO2 (75.0-100.0) mmHg ABG HCO3 (22.0-26.0) mmol/L ABG Total CO2 (23.0-27.0) mmol/L ABG O2 Saturation (95.0-98.0) % ABG O2 Content (15.0-23.0) %vol ABG Base Excess mm/L ABG Hemoglobin (13.5-18.0) g/dL ABG Oxyhemoglobin % ABG Carboxyhemoglobin (0.0-1.6) % ABG Methemoglobin % Cortes Test O2 Delivery Device Sodium (140-148) mmol/L Potassium (3.6-5.2) mmol/L Chloride (100-108) mmol/L Carbon Dioxide (21-32) mmol/L Anion Gap (5.0-14.0) mmol/L BUN (7-18) mg/dL Creatinine (0.8-1.3) mg/dL Est Cr Clr Drug Dosing mL/min Estimated GFR (MDRD) (>60) Glucose (74-106) mg/dL Lactic Acid (0.4-2.0) mmol/L Calcium (8.5-10.1) mg/dL Magnesium (1.8-2.4) mg/dL Total Bilirubin (0.2-1.0) mg/dL AST (15-37) U/L ALT (12-78) U/L Alkaline Phosphatase (46-116) U/L Ammonia (11-32) mmol/L Troponin I < 0.017 (0.000-0.056) ng/mL NT-Pro-B Natriuret Pep (5-125) pg/mL Total Protein (6.4-8.2) g/dL Albumin (3.4-5.0) g/dL Globulin (2.3-3.5) g/dL Albumin/Globulin Ratio (1.2-2.2) Urine Color (YELLOW) Urine Appearance (CLEAR) Urine pH (5.0-8.0) Ur Specific [place] (1.008-1.030) Urine Protein (NEGATIVE) mg/dL Urine Glucose (UA) (NEGATIVE) mg/dL Urine Ketones (NEGATIVE) mg/dL Urine Occult Blood (NEGATIVE) Urine Nitrite (NEGATIVE) Urine Bilirubin (NEGATIVE) Urine Urobilinogen (0.2-1.0) EU/dL Ur Leukocyte Esterase (NEGATIVE) Urine RBC (0-5) Urine WBC (0-5) Ur Epithelial Cells Urine Bacteria Urine Opiates Screen Negative (NEGATIVE) Ur Oxycodone Screen Negative (NEGATIVE) Urine Methadone Screen Negative (NEGATIVE) Ur Propoxyphene Screen Negative (NEGATIVE) Ur Barbiturates Screen Negative (NEGATIVE) Ur Tricyclics Screen Presumptive positive H (NEGATIVE) Ur Phencyclidine Scrn Negative (NEGATIVE) Ur Amphetamine Screen Negative (NEGATIVE) U Methamphetamines Scrn Negative (NEGATIVE) Urine MDMA Screen Negative (NEGATIVE) U Benzodiazepines Scrn Negative (NEGATIVE) U Cocaine Metab Screen Negative (NEGATIVE) U Marijuana (THC) Screen Negative (NEGATIVE) Ethyl Alcohol mg/dL SARS-CoV-2 RNA (ASA) (NEGATIVE) Blood Type Gel Antibody Screen Result Diagrams: 06/10/20 07:30 06/10/20 07:30 Sepsis Event Note - Evaluation Sepsis Screening Result: No Definite Risk - Focused Exam Vital Signs: Vital Signs Temp Pulse Resp BP Pulse Ox 06/10/20 11:59 96.6 F L 93 10 L 163/103 H 99 06/10/20 11:45 97 10 L 152/104 H 98 06/10/20 11:30 96.3 F L 101 H 10 L 175/112 H 98 06/10/20 11:15 96.0 F L 105 H 11 L 165/105 H 99 06/10/20 11:05 96.0 F L 113 H 11 L 199/129 H 99 06/10/20 11:00 97.2 F 108 H 15 149/76 H 100 06/10/20 10:55 97.2 F 113 H 15 137/80 100 06/10/20 10:50 106 H 15 150/90 H 100 06/10/20 10:45 100 15 158/94 H 100 06/10/20 10:40 97.5 F 111 H 16 125/99 H 99 06/10/20 08:30 137 H 172/119 H 06/10/20 07:30 63 181/107 H 06/10/20 07:21 95.4 F L 126 H 16 191/100 H 96 06/10/20 07:05 95.4 F L 82 16 191/100 H 97 Problem List Initiated/Reviewed/Updated: Yes Orders Last 24hrs: Active Orders 24 hr Category Date Time Status Patient Status [ADT] Routine ADT 06/10/20 13:29 Ordered Ambulate [RC] QID Care 06/10/20 13:28 Ordered Cardiac Monitoring [RC] Q12H Care 06/10/20 07:17 Active Height and Weight [RC] DAILY Care 06/10/20 13:28 Ordered Intake and Output [RC] QSHIFT Care 06/10/20 13:30 Ordered Oxygen Therapy [RC] PRN Care 06/10/20 13:29 Ordered Pulse Oximetry [RC] CONTINUOUS Care 06/10/20 13:31 Ordered Up to Chair [RC] QID Care 06/10/20 13:28 Ordered VTE/DVT Education [RC] Per Unit Routine Care 06/10/20 13:29 Ordered Vital Signs [RC] Q4H Care 06/10/20 13:29 Ordered Regular Diet [DIET] Diet 06/10/20 Dinner Ordered CBC WITH AUTO DIFF [HEME] DAILY Lab 06/11/20 13:30 Ordered CBC WITH AUTO DIFF [HEME] DAILY Lab 06/12/20 13:30 Ordered CBC WITH AUTO DIFF [HEME] DAILY Lab 06/13/20 13:30 Ordered CBC WITH AUTO DIFF [HEME] DAILY Lab 06/14/20 13:30 Ordered CBC WITH AUTO DIFF [HEME] DAILY Lab 06/15/20 13:30 Ordered COMPREHENSIVE METABOLIC PN,CMP [CHEM] DAILY Lab 06/11/20 13:30 Ordered COMPREHENSIVE METABOLIC PN,CMP [CHEM] DAILY Lab 06/12/20 13:30 Ordered COMPREHENSIVE METABOLIC PN,CMP [CHEM] DAILY Lab 06/13/20 13:30 Ordered COMPREHENSIVE METABOLIC PN,CMP [CHEM] DAILY Lab 06/14/20 13:30 Ordered CULTURE BLOOD [BC] Urgent Lab 06/10/20 08:30 Received CULTURE BLOOD [BC] Urgent Lab 06/10/20 08:30 Received INR,PT,PROTHROMBIN TIME [COAG] DAILY Lab 06/11/20 13:40 Ordered INR,PT,PROTHROMBIN TIME [COAG] DAILY Lab 06/12/20 13:40 Ordered INR,PT,PROTHROMBIN TIME [COAG] DAILY Lab 06/13/20 13:40 Ordered INR,PT,PROTHROMBIN TIME [COAG] DAILY Lab 06/14/20 13:40 Ordered INR,PT,PROTHROMBIN TIME [COAG] DAILY Lab 06/15/20 13:40 Ordered PATIENT RETYPE [BBK] Stat Lab 06/10/20 07:30 Results TYPE AND SCREEN [BBK] Stat Lab 06/10/20 07:30 Results Acetaminophen [TylenoL] Med 06/10/20 13:28 Ordered 650 mg PO Q4H PRN Amiodarone [Cordarone] Med 06/10/20 13:45 Ordered 200 mg PO DAILY Baclofen [Lioresal] Med 06/10/20 13:35 Ordered 10 mg PO TID PRN Colchicine [Colcrys] Med 06/10/20 13:35 Ordered 0.6 mg PO TID PRN Diltiazem [Cardizem CD] Med 06/10/20 13:45 Ordered 180 mg PO DAILY Docusate Sodium/Sennosides [Senna Plus] Med 06/10/20 13:28 Ordered 1 tab PO BID PRN Enoxaparin [Lovenox] Med 06/10/20 13:45 Ordered 40 mg SUBCUT DAILY Fluticasone/Vilanterol Med 06/10/20 13:45 Ordered 2 inhalation INH DAILY Folic Acid Med 06/10/20 13:45 Ordered 1 mg PO DAILY Furosemide [Lasix] Med 06/10/20 13:45 Ordered 40 mg PO DAILY Gabapentin [Neurontin] Med 06/10/20 13:45 Ordered 300 mg PO BID LORazepam [Ativan] Med 06/10/20 13:28 Ordered 1 mg IV Q6H PRN Lactated Ringers [Ringers, Lactated] 1,000 ml Med 06/10/20 13:30 Ordered IV ASDIRECTED Magnesium Oxide Med 06/10/20 21:00 Ordered 800 mg PO BID Metoprolol Succinate [Metoprolol Succinate] Med 06/10/20 13:45 Ordered 75 mg PO DAILY Morphine Med 06/10/20 13:28 Ordered 2 mg IVPUSH Q2H PRN Multivitamin [Multi-Vitamin Daily] Med 06/11/20 09:00 Ordered 1 each PO DAILY Nitroglycerin [Nitrostat] Med 06/10/20 13:35 Ordered 0.4 mg SL Q5M PRN Ondansetron [Zofran ODT] Med 06/10/20 13:28 Ordered 4 mg PO Q6H PRN Ondansetron [Zofran] Med 06/10/20 13:28 Ordered 4 mg IV Q6H PRN Sertraline [Zoloft] Med 06/10/20 14:00 Ordered 50 mg PO DAILY Sodium Chloride 0.9% [Normal Saline] 1,000 ml Med 06/10/20 07:45 Active IV ASDIRECTED Warfarin Sliding Scale [Coumadin Sliding Scale] Med 06/10/20 13:45 Ordered 5 mg PO ASDIRECTED Warfarin [Coumadin] Med 06/10/20 13:45 Ordered 7.5 mg PO ASDIRECTED allopurinoL [Zyloprim] Med 06/10/20 13:45 Ordered 300 mg PO DAILY atorvaSTATin [Lipitor] Med 06/10/20 21:00 Ordered 10 mg PO BEDTIME hydrALAZINE [Apresoline] Med 06/10/20 13:45 Ordered 25 mg PO Q8H metFORMIN HCl [Metformin HCl] Med 06/10/20 21:00 Ordered 1,000 mg PO BID ondansetron HCL [Zofran] Med 06/10/20 13:35 Ordered 4 mg PO Q8H PRN oxyCODONE Med 06/10/20 13:28 Ordered 5 mg PO Q4H PRN traZODone [traZODone] Med 06/10/20 21:00 Ordered 100 mg PO BEDTIME Blood Culture x2 Reflex Set [OM.PC] Urgent Oth 06/10/20 08:07 Ordered Resuscitation Status Routine Resus Stat 06/10/20 13:28 Ordered EKG 12 Lead [EK] Routine Ther 06/10/20 07:17 Ordered Medication Orders Acetaminophen (Tylenol) 650 mg PO Q4H PRN PRN Reason: Pain (Mild 1-3)/fever Allopurinol (Zyloprim) 300 mg PO DAILY [facility] Amiodarone HCl (Cordarone) 200 mg PO DAILY [facility] Atorvastatin Calcium (Lipitor) 10 mg PO BEDTIME JENISE Baclofen (Lioresal) 10 mg PO TID PRN PRN Reason: Pain Colchicine (Colcrys) 0.6 mg PO TID PRN PRN Reason: Other Diltiazem HCl (Cardizem Cd) 180 mg PO DAILY [facility] Enoxaparin Sodium (Lovenox) 40 mg SUBCUT DAILY [facility] Folic Acid (Folic Acid) 1 mg PO DAILY [facility] Furosemide (Lasix) 40 mg PO DAILY [facility] Gabapentin (Neurontin) 300 mg PO BID [facility] Hydralazine HCl (Apresoline) 25 mg PO Q8H [facility] Sodium Chloride (Normal Saline) 1,000 mls @ 250 mls/hr IV ASDIRECTED [facility] Last Admin: 06/10/20 08:58 Dose: 250 mls/hr Documented by: [email or web address] Lactated Ringer's (Ringers, Lactated) 1,000 mls @ 100 mls/hr IV ASDIRECTED [facility] Lorazepam (Ativan) 1 mg IV Q6H PRN PRN Reason: Nausea/Vomiting Magnesium Oxide (Magnesium Oxide) 800 mg PO BID [facility] Morphine Sulfate (Morphine) 2 mg IVPUSH Q2H PRN PRN Reason: Pain (severe 7-10) Nitroglycerin (Nitrostat) 0.4 mg SL Q5M PRN PRN Reason: Chest Pain Non-Formulary Medication (Fluticasone/Vilanterol) 2 inhalation INH DAILY [facility] Non-Formulary Medication (Metformin Hcl [Metformin Hcl]) 1,000 mg PO BID [facility] Non-Formulary Medication (Metoprolol Succinate [Metoprolol Succinate]) 75 mg PO DAILY [facility] Non-Formulary Medication (Multivitamin [Multi-Vitamin Daily]) 1 each PO DAILY [facility] Non-Formulary Medication (Ondansetron Hcl [Zofran]) 4 mg PO Q8H PRN PRN Reason: Nausea Non-Formulary Medication (Trazodone [Trazodone]) 100 mg PO BEDTIME JENISE Ondansetron HCl (Zofran Odt) 4 mg PO Q6H PRN PRN Reason: Nausea able to take PO Ondansetron HCl (Zofran) 4 mg IV Q6H PRN PRN Reason: Nausea/Vomiting Oxycodone HCl (Oxycodone) 5 mg PO Q4H PRN PRN Reason: Pain (moderate 4-6) Senna/Docusate Sodium (Senna Plus) 1 tab PO BID PRN PRN Reason: Constipation Sertraline HCl (Zoloft) 50 mg PO DAILY [facility] Warfarin Sodium (Coumadin Sliding Scale) each PO ASDIRECTED [facility] Warfarin Sodium (Coumadin) 7.5 mg PO ASDIRECTED [facility] Assessment/Plan Comment:: Assessment and Plan: 1. HEENT No active issues at this time. Unable to completely assess 2. Cardiac Patient is in active atrial fibrillation with rvr. I suspect that this is because the patient has not taken his home medications which include diltiazem, amiodarone, and metoprolol. He has a subtherapeutic INR at this time and I suspect that this too is because the patient has not been compliant in some form or another with medications - Resume metoprolol, diltiazem, amiodarone, coumadin per home doses - Continuous telemetry and oximetry - Troponin at time of admission negative 3. Respiratory Stable, COVID 19 negative - Supplemental oxygen to keep SpO2 between 92-96% 4. F/E/N May be dry given incontinence of stool/urine, reduced po intake - IV fluids per orders - Monitor for overload 5. Renal Stable 6. Infectious Disease No active signs of infection at this time 7. Gastrointestinal Obesity noted No active issues and no signs of diarrheal illness. Had been wretching a bit - Zofran 4 mg IV/SL as tolerated - May use phenergan prn if needed and zofran fails 8. Neuromusculoskeletal Patient is on baclofen (unable to divine why) Unable to fully assess neurological status due to encephalopathy As to the encephalopathy could be d/t EtOH that is not being honestly reported by family, could be due to medication effect (likely too much of some of his psychotropics and/or baclofen given his presentation) - Resume home meds - Caution with opiates/sedative (though opiates are ordered for acute pain if needed) - Will observe x 1-2 days and if there is no improvement would recommend transfer to facility with Neurology capability - Could also be Wernicke's? Will write for thiamine Disposition: Pending Hospitalist: Last Billy M.D. 06/10/2020 - Mortality Measure Prognosis:: Good
[2020-06-10] MEDS ORDERED: hydrALAZINE 25 MG Tab PO SCH (14:00)
[2020-06-10] MEDS ORDERED: Furosemide 40 MG Tab PO SCH (14:00)
[2020-06-10] MEDS ORDERED: Diltiazem 180 MG Cap.CD PO SCH (14:00)
[2020-06-10] MEDS ORDERED: Metoprolol Succinate 25 MG Tab.ER PO SCH (14:00)
[2020-06-10] MEDS: Metoprolol Tartrate 5 MG/5 ML SDV IV SCH ×2 (14:45→20:24)
[2020-06-10] MEDS: Diltiazem 100 MG in Sodium Chloride 0.9% 100 ML IV SCH ×2 (14:47→22:56)
[2020-06-10] MEDS: hydrALAZINE 20 MG/ML SDV IV SCH ×2 (15:49→22:08)
[2020-06-10] MEDS ORDERED: Enoxaparin 40 MG/0.4 ML Syringe SUBCUT SCH (16:00)
[2020-06-10] MEDS: Thiamine 100 MG in Sodium Chloride 0.9% 100 ML IV SCH (16:07)
[2020-06-10] MEDS: Amiodarone 200 MG Tab PO SCH (17:31)
[2020-06-10] MEDS: Folic Acid 1 MG Tab PO SCH (17:31)
[2020-06-10] MEDS: Enoxaparin 40 MG/0.4 ML Syringe SUBCUT SCH (17:49)
[2020-06-10] MEDS ORDERED: Warfarin 2.5 MG, Warfarin 5 MG PO SCH ×2 (18:00)
[2020-06-10] MEDS ORDERED: Furosemide 20 MG/2 ML VIAL IV ONE (18:15)
[2020-06-10] MEDS: Morphine 2 MG/ML SYRINGE IVPUSH PRN (20:24)
[2020-06-10] MEDS ORDERED: Non-Formulary Medication 1 Each (Metformin Hcl [Metformin Hcl] 1,000 MG) PO SCH (21:00)
[2020-06-10] MEDS ORDERED: Non-Formulary Medication 1 Each (Trazodone [Trazodone] 100 MG) PO SCH (21:00)
[2020-06-10] MEDS: Magnesium Oxide 400 MG Tab PO SCH (22:02)
[2020-06-10] MEDS: metFORMIN 500 MG Tab PO SCH (22:02)
[2020-06-10] MEDS: Formoterol/Mometasone 200-5 MCG 8.8 GM Inhaler IH SCH (22:02)
[2020-06-10] MEDS: Gabapentin 300 MG Cap PO SCH (22:02)
[2020-06-10] MEDS: traZODone 50 MG Tab PO SCH (22:02)
[2020-06-10] MEDS: atorvaSTATin 10 MG Tab PO SCH (22:02)
[2020-06-11] MEDS: Lactated Ringers 1,000 ML IV SCH ×3 (00:12→20:11)
[2020-06-11] MEDS: Metoprolol Tartrate 5 MG/5 ML SDV IV SCH ×2 (02:29→09:45)
[2020-06-11] MEDS: hydrALAZINE 20 MG/ML SDV IV SCH ×2 (03:39→10:35)
[2020-06-11] MEDS: Morphine 2 MG/ML SYRINGE IVPUSH PRN (03:40)
[2020-06-11] MEDS: Diltiazem 100 MG in Sodium Chloride 0.9% 100 ML IV SCH (05:00)
[2020-06-11] MEDS ORDERED: Non-Formulary Medication 1 Each (Multivitamin [Multi-Vitamin Daily] 1 EACH) PO SCH (09:00)
[2020-06-11] MEDS: Formoterol/Mometasone 200-5 MCG 8.8 GM Inhaler IH SCH ×2 (09:16→21:02)
[2020-06-11] MEDS ORDERED: Furosemide 20 MG/2 ML VIAL IV SCH (11:00)
--- NOTE | 2020-06-11 12:28 | PCM.PN ---
- General Info Date of Service: 06/11/20 Admission Dx/Problem (Free Text): 1. Encephalopathy Subjective Update: Patient is awake, alert and answering questions this AM. He is still a little groggy and foggy about what has happened, but on the whole is doing much better. He is still unclear as to what happened but "thinks" that it is possible he may have tried to "catch up" on missed meds. This would raise the spectre of an unintentional med overdose. Functional Status: Reports: Pain Controlled, Tolerating Diet - Review of Systems General: Reports: No Symptoms HEENT: Reports: No Symptoms Pulmonary: Reports: No Symptoms Cardiovascular: Reports: No Symptoms Gastrointestinal: Reports: No Symptoms Neurological: Reports: Confusion Psychiatric: Reports: Confusion - Patient Data Vitals - Most Recent: Last Vital Signs Temp 99.4 F 06/11/20 05:00 Pulse 86 06/11/20 09:45 Resp 14 06/11/20 06:00 BP 154/84 H 06/11/20 09:45 Pulse Ox 96 06/11/20 06:00 Weight - Most Recent: 432 lb 1.696 oz Lab Results Last 24 Hours: Laboratory Results - last 24 hr 06/11/20 06/11/20 06/11/20 Range/Units 04:30 04:30 04:30 WBC 10.2 (4.5-11.0) K/uL RBC 4.96 (4.30-5.90) M/uL Hgb 13.8 (12.0-15.0) g/dL Hct 44.4 (40.0-54.0) % MCV 90 (80-98) fL MCH 28 (27-31) pg MCHC 31 L (32-36) % Plt Count 188 (150-400) K/uL Neut % (Auto) 86 H (36-66) % Lymph % (Auto) 6 L (24-44) % [place] % (Auto) 9 H (2-6) % Eos % (Auto) 0 L (2-4) % Baso % (Auto) 0 (0-1) % PT 18.7 H (9.5-12.0) sec INR 1.73 H (0.80-1.20) Sodium 140 (140-148) mmol/L Potassium 3.7 (3.6-5.2) mmol/L Chloride 103 (100-108) mmol/L Carbon Dioxide 28 (21-32) mmol/L Anion Gap 8.6 (5.0-14.0) mmol/L BUN 16 (7-18) mg/dL Creatinine 1.2 (0.8-1.3) mg/dL Est Cr Clr Drug Dosing 59.38 mL/min Estimated GFR (MDRD) > 60 (>60) Glucose 196 H (74-106) mg/dL Calcium 8.3 L (8.5-10.1) mg/dL Total Bilirubin 0.8 (0.2-1.0) mg/dL AST 37 (15-37) U/L ALT 25 (12-78) U/L Alkaline Phosphatase 126 H (46-116) U/L Total Protein 7.4 (6.4-8.2) g/dL Albumin 2.6 L (3.4-5.0) g/dL Globulin 4.8 H (2.3-3.5) g/dL Albumin/Globulin Ratio 0.5 L (1.2-2.2) Kush Results Last 24 Hours: Microbiology 06/10/20 08:30 Aerobic Blood Culture - Preliminary Blood - Arm, Right NO GROWTH AFTER 1 DAY Anaerobic Blood Culture - Preliminary NO GROWTH AFTER 1 DAY 06/10/20 08:30 Aerobic Blood Culture - Preliminary Blood - Venous - Lab Draw NO GROWTH AFTER 1 DAY Anaerobic Blood Culture - Preliminary NO GROWTH AFTER 1 DAY Med Orders - Current: Current Medications Acetaminophen (Tylenol) 650 mg PO Q4H PRN PRN Reason: Pain (Mild 1-3)/fever Last Admin: 06/11/20 11:20 Dose: 650 mg Documented by: Allopurinol (Zyloprim) 300 mg PO DAILY [facility] Amiodarone HCl (Cordarone) 200 mg PO DAILY [facility] Last Admin: 06/10/20 17:31 Dose: Not Given Documented by: Atorvastatin Calcium (Lipitor) 10 mg PO BEDTIME [facility] Last Admin: 06/10/20 22:02 Dose: Not Given Documented by: Baclofen (Lioresal) 10 mg PO TID PRN PRN Reason: Pain Last Admin: 06/11/20 11:19 Dose: 10 mg Documented by: Colchicine (Colcrys) 0.6 mg PO TID PRN PRN Reason: Other Diltiazem HCl (Cardizem Cd) 180 mg PO DAILY [facility] Enoxaparin Sodium (Lovenox) 40 mg SUBCUT Q24H [facility] Last Admin: 06/10/20 17:49 Dose: 40 mg Documented by: Folic Acid (Folic Acid) 1 mg PO DAILY [facility] Last Admin: 06/10/20 17:31 Dose: Not Given Documented by: Furosemide (Lasix) 40 mg PO DAILY [facility] Gabapentin (Neurontin) 300 mg PO BID [facility] Last Admin: 06/10/20 22:02 Dose: Not Given Documented by: Hydralazine HCl (Apresoline) 25 mg PO Q8H [facility] Lactated Ringer's (Ringers, Lactated) 1,000 mls @ 100 mls/hr IV ASDIRECTED [facility] Last Admin: 06/11/20 10:10 Dose: 100 mls/hr Documented by: Thiamine HCl 100 mg/ Sodium (Chloride) 101 mls @ 202 mls/hr IV Q24H [facility] Last Admin: 06/10/20 16:07 Dose: 202 mls/hr Documented by: Lorazepam (Ativan) 1 mg IV Q6H PRN PRN Reason: Nausea/Vomiting Magnesium Oxide (Magnesium Oxide) 800 mg PO BID [facility] Last Admin: 06/10/20 22:02 Dose: Not Given Documented by: Metformin HCl (Glucophage) 1,000 mg PO BID [facility] Last Admin: 06/10/20 22:02 Dose: Not Given Documented by: Metoprolol Succinate (Toprol Xl) 75 mg PO DAILY [facility] Mometasone Furoate/Formoterol Fumar (Dulera 200-5 Mcg) 2 puff IH BIDRT [facility] Last Admin: 06/11/20 09:16 Dose: 2 puff Documented by: Morphine Sulfate (Morphine) 2 mg IVPUSH Q2H PRN PRN Reason: Pain (severe 7-10) Last Admin: 06/11/20 03:40 Dose: 2 mg Documented by: Multivitamins/Minerals (Thera M Plus) 1 tab PO DAILY [facility] Nitroglycerin (Nitrostat) 0.4 mg SL Q5M PRN PRN Reason: Chest Pain Ondansetron HCl (Zofran) 4 mg IV Q6H PRN PRN Reason: Nausea/Vomiting Oxycodone HCl (Oxycodone) 5 mg PO Q4H PRN PRN Reason: Pain (moderate 4-6) Senna/Docusate Sodium (Senna Plus) 1 tab PO BID PRN PRN Reason: Constipation Sertraline HCl (Zoloft) 50 mg PO DAILY [facility] Trazodone HCl (Trazodone) 100 mg PO BEDTIME [facility] Last Admin: 06/10/20 22:02 Dose: Not Given Documented by: Warfarin Sodium (Coumadin) 5 mg PO SuTuThSa@1300 [facility] Warfarin Sodium 2.5 mg/ (Warfarin Sodium 5 mg) 7.5 mg PO MoWeFr@1300 [facility] Last Admin: 06/10/20 17:32 Dose: Not Given Documented by: Discontinued Medications Epinephrine HCl (Adrenalin) Confirm Administered Dose 1 mg .ROUTE .STK-MED ONE Stop: 06/10/20 10:13 Furosemide (Lasix) 40 mg PO DAILY [facility] Last Admin: 06/10/20 17:31 Dose: Not Given Documented by: Furosemide (Lasix) 20 mg IV ONETIME ONE Stop: 06/10/20 18:16 Last Admin: 06/10/20 17:49 Dose: 20 mg Documented by: Furosemide (Lasix) 20 mg IV Q24H [facility] Hydralazine HCl (Apresoline) 10 mg IV Q6H [facility] Last Admin: 06/11/20 10:35 Dose: 10 mg Documented by: Sodium Chloride (Normal Saline) 1,000 mls @ 250 mls/hr IV ASDIRECTED [facility] Last Admin: 06/10/20 08:58 Dose: 250 mls/hr Documented by: Diltiazem HCl 100 mg/ Sodium (Chloride) 100 mls @ 5 mls/hr IV TITRATE [facility]; Protocol Last Admin: 06/11/20 05:00 Dose: 15 mg/hr, 15 mls/hr Documented by: Metoprolol Succinate (Toprol Xl) 75 mg PO DAILY [facility] Metoprolol Tartrate (Lopressor) 5 mg IV Q6H [facility] Last Admin: 06/11/20 09:45 Dose: 5 mg Documented by: Ondansetron HCl (Zofran) 4 mg IVPUSH ONETIME ONE Stop: 06/10/20 08:41 Last Admin: 06/10/20 08:59 Dose: 4 mg Documented by: Ondansetron HCl (Zofran) 4 mg IVPUSH ONETIME STA Stop: 06/10/20 12:54 Last Admin: 06/10/20 13:00 Dose: 4 mg Documented by: Pantoprazole Sodium (Protonix Iv) 40 mg IVPUSH ONETIME ONE Stop: 06/10/20 07:48 Last Admin: 06/10/20 08:52 Dose: 40 mg Documented by: Propofol (Diprivan 20 Ml) Confirm Administered Dose 200 mg .ROUTE .STK-MED ONE Stop: 06/10/20 10:20 - Exam Quality Assessment: Supplemental Oxygen, DVT Prophylaxis General: Alert, Cooperative, No Acute Distress Lungs: Clear to Auscultation, Normal Respiratory Effort Cardiovascular: Regular Rate, Regular Rhythm GI/Abdominal Exam: Normal Bowel Sounds Neurological: No New Focal Deficit Psy/Mental Status: Alert, Normal Affect, Normal Mood Sepsis Event Note - Evaluation Sepsis Screening Result: No Definite Risk - Focused Exam Vital Signs: Vital Signs Temp Pulse Pulse Resp BP BP Pulse Ox 06/11/20 09:45 86 154/84 H 06/11/20 06:00 90 14 152/90 H 96 06/11/20 05:00 99.4 F 101 H 13 144/72 H 95 06/11/20 04:00 99.2 F 91 18 144/72 H 95 06/11/20 03:00 82 12 140/78 97 06/11/20 02:29 97 164/86 H 06/11/20 02:00 104 H 19 164/86 H 93 L 06/11/20 01:00 103 H 17 177/87 H 93 L - Problem List Review Problem List Initiated/Reviewed/Updated: Yes - My Orders Last 24 Hours: My Active Orders 06/10/20 13:28 Ambulate [RC] QID Height and Weight [RC] DAILY Up to Chair [RC] QID Acetaminophen [TylenoL] 650 mg PO Q4H PRN Docusate Sodium/Sennosides [Senna Plus] 1 tab PO BID PRN LORazepam [Ativan] 1 mg IV Q6H PRN Morphine 2 mg IVPUSH Q2H PRN Ondansetron [Zofran] 4 mg IV Q6H PRN oxyCODONE 5 mg PO Q4H PRN Resuscitation Status Routine 06/10/20 13:29 Patient Status [ADT] Routine Oxygen Therapy [RC] PRN VTE/DVT Education [RC] Per Unit Routine Vital Signs [RC] Q1H 06/10/20 13:30 Intake and Output [RC] QSHIFT Lactated Ringers [Ringers, Lactated] 1,000 ml IV ASDIRECTED 06/10/20 13:31 Pulse Oximetry [RC] CONTINUOUS 06/10/20 13:35 Baclofen [Lioresal] 10 mg PO TID PRN Colchicine [Colcrys] 0.6 mg PO TID PRN Nitroglycerin [Nitrostat] 0.4 mg SL Q5M PRN 06/10/20 14:00 Amiodarone [Cordarone] 200 mg PO DAILY Folic Acid 1 mg PO DAILY 06/10/20 15:00 Enoxaparin [Lovenox] 40 mg SUBCUT Q24H Thiamine [Vitamin B-1] 100 mg Sodium Chloride 0.9% [Normal Saline] 100 ml IV Q24H 06/10/20 Dinner Regular Diet [DIET] 06/10/20 21:00 Gabapentin [Neurontin] 300 mg PO BID Magnesium Oxide 800 mg PO BID Mometasone/Formoterol [Dulera 200-5 MCG] 2 puff IH BIDRT atorvaSTATin [Lipitor] 10 mg PO BEDTIME metFORMIN [Glucophage] 1,000 mg PO BID traZODone 100 mg PO BEDTIME 06/11/20 09:00 Multivitamins w-Iron/Ca/FA/Min [Thera M Plus] 1 tab PO DAILY Sertraline [Zoloft] 50 mg PO DAILY allopurinoL [Zyloprim] 300 mg PO DAILY 06/11/20 12:30 Diltiazem [Cardizem CD] 180 mg PO DAILY Furosemide [Lasix] 40 mg PO DAILY Metoprolol Succinate [Toprol XL] 75 mg PO DAILY 06/11/20 13:00 Warfarin [Coumadin] 5 mg PO SuTuThSa@1300 06/11/20 14:00 hydrALAZINE [Apresoline] 25 mg PO Q8H 06/12/20 05:00 CBC WITH AUTO DIFF [HEME] DAILY COMPREHENSIVE METABOLIC PN,CMP [CHEM] DAILY INR,PT,PROTHROMBIN TIME [COAG] DAILY 06/13/20 05:00 CBC WITH AUTO DIFF [HEME] DAILY COMPREHENSIVE METABOLIC PN,CMP [CHEM] DAILY INR,PT,PROTHROMBIN TIME [COAG] DAILY 06/14/20 05:00 CBC WITH AUTO DIFF [HEME] DAILY COMPREHENSIVE METABOLIC PN,CMP [CHEM] DAILY INR,PT,PROTHROMBIN TIME [COAG] DAILY 06/15/20 05:00 CBC WITH AUTO DIFF [HEME] DAILY COMPREHENSIVE METABOLIC PN,CMP [CHEM] DAILY INR,PT,PROTHROMBIN TIME [COAG] DAILY - Plan Plan:: Assessment and Plan: 1. HEENT No active issues at this time. Unable to completely assess 2. Cardiac Patient is in active atrial fibrillation with rvr. I suspect that this is because the patient has not taken his home medications which include diltiazem, amiodarone, and metoprolol. He has a subtherapeutic INR at this time and I suspect that this too is because the patient has not been compliant in some form or another with medications - Resume metoprolol, diltiazem, amiodarone, coumadin per home doses - Continuous telemetry and oximetry - Troponin at time of admission negative 3. Respiratory Stable, COVID 19 negative - Supplemental oxygen to keep SpO2 between 92-96% 4. F/E/N May be dry given incontinence of stool/urine, reduced po intake - IV fluids per orders - Monitor for overload 5. Renal Stable 6. Infectious Disease No active signs of infection at this time 7. Gastrointestinal Obesity noted No active issues and no signs of diarrheal illness. Had been wretching a bit - Zofran 4 mg IV/SL as tolerated - May use phenergan prn if needed and zofran fails 8. Neuromusculoskeletal Patient is on baclofen (unable to divine why) Unable to fully assess neurological status due to encephalopathy As to the encephalopathy could be d/t EtOH that is not being honestly reported by family, could be due to medication effect (likely too much of some of his psychotropics and/or baclofen given his presentation) UPDATE HD #2 Patient seems to be waking up and noted that he may have played "catchup" with some of his medications. It appears that this is likely the encephalopathy of an unintentional overdose. His toxicology was positive for TCA. - Resume home meds - Caution with opiates/sedative (though opiates are ordered for acute pain if needed) - Will observe x 1-2 days and if there is no improvement would recommend transfer to facility with Neurology capability - Could also be Wernicke's? Will write for thiamine Disposition: Pending Hospitalist: Last Billy M.D. 06/10/2020
[2020-06-11] MEDS ORDERED: Metoprolol Succinate 25 MG Tab.ER PO SCH (12:30)
[2020-06-11] MEDS: Metoprolol Succinate 25 MG Tab.ER PO SCH (12:43)
[2020-06-11] MEDS: Diltiazem 180 MG Cap.CD PO SCH (12:44)
[2020-06-11] MEDS: Furosemide 40 MG Tab PO SCH (12:44)
[2020-06-11] MEDS: Magnesium Oxide 400 MG Tab PO SCH ×2 (12:45→21:03)
[2020-06-11] MEDS: metFORMIN 500 MG Tab PO SCH ×2 (12:45→21:02)
[2020-06-11] MEDS: Folic Acid 1 MG Tab PO SCH (12:45)
[2020-06-11] MEDS: Gabapentin 300 MG Cap PO SCH ×2 (12:46→21:03)
[2020-06-11] MEDS: Multivitamins with Iron/Calcium/Folic Acid/Minerals Tab PO SCH (12:46)
[2020-06-11] MEDS: Sertraline 25 MG Tab PO SCH (12:46)
[2020-06-11] MEDS: Allopurinol 100 MG Tab PO SCH (12:46)
[2020-06-11] MEDS: Warfarin 5 MG Tab PO SCH (14:01)
[2020-06-11] MEDS: hydrALAZINE 25 MG Tab PO SCH ×2 (16:19→21:03)
[2020-06-11] MEDS: Enoxaparin 40 MG/0.4 ML Syringe SUBCUT SCH (16:19)
[2020-06-11] MEDS: Thiamine 100 MG in Sodium Chloride 0.9% 100 ML IV SCH (16:20)
[2020-06-11] MEDS: traZODone 50 MG Tab PO SCH (21:03)
[2020-06-11] MEDS: atorvaSTATin 10 MG Tab PO SCH (21:03)
[2020-06-12] MEDS: Morphine 2 MG/ML SYRINGE IVPUSH PRN
[2020-06-12] MEDS: hydrALAZINE 25 MG Tab PO SCH ×2 (05:46→14:21)
[2020-06-12] MEDS: Lactated Ringers 1,000 ML IV SCH (06:06)
[2020-06-12] MEDS: Formoterol/Mometasone 200-5 MCG 8.8 GM Inhaler IH SCH (07:22)
[2020-06-12] MEDS: Diltiazem 180 MG Cap.CD PO SCH (09:31)
[2020-06-12] MEDS: Furosemide 40 MG Tab PO SCH (09:32)
[2020-06-12] MEDS: Amiodarone 200 MG Tab PO SCH (09:32)
[2020-06-12] MEDS: Metoprolol Succinate 25 MG Tab.ER PO SCH (09:32)
[2020-06-12] MEDS: Gabapentin 300 MG Cap PO SCH (09:33)
[2020-06-12] MEDS: Magnesium Oxide 400 MG Tab PO SCH (10:43)
[2020-06-12] MEDS: Multivitamins with Iron/Calcium/Folic Acid/Minerals Tab PO SCH (10:44)
[2020-06-12] MEDS: Sertraline 25 MG Tab PO SCH (10:44)
[2020-06-12] MEDS: Folic Acid 1 MG Tab PO SCH (10:44)
[2020-06-12] MEDS: Allopurinol 100 MG Tab PO SCH (10:45)
[2020-06-12] MEDS: metFORMIN 500 MG Tab PO SCH (10:46)
--- NOTE | 2020-06-12 13:09 | PCM.DCSUM1 ---
Discharge Summary - Hospital Course Free Text/Narrative:: 1. Encephalopathy, due to unintentional medication overdose HPI Initial Comments: Marino Conrad is a 64 yo male admitted to [facility] from the ED on 10 June 2020 for 2 day history of encephalopathy. The paitent, per the report from the to the ER, has been incontinent of stool, urine and has been minimally responsive for that time. Per history the patient has myriad medical problems including prior alcoholism from which is is reportedly abstinent x 3 mos. The patient's BAL at < 0.01 at time of admission confirms this, at least for the past 48 hours or so. The patient has a DAIRY CHEMIST, his brother, who is supposedly sissy ging meds and routine cares. However it is unclear whether the patient has been taking the meds as prescribed. His notes that he has, over the past few days, been questionably compliant with medication. The patient for his part is arousable but otherwise unable to offer ANY meaningful history on interview. Family was not available at that time either. RN notes that the patient is in atrial fibrillation with RVR. He is also nauseated. ED suspects that the patient has been goofing up a number of his medications which may have triggered the episode of encephalopathy. Admission to ICU is requested for evaluation and management of the encephalopathy The patient was restarted on his home regimen of medication and has done well with near total return to normal mentation. He has been quite stable and is felt to be stable to discharge. Diagnosis: Stroke: No - Discharge Data Discharge Date: 06/12/20 Discharge Disposition: Home, Self-Care 01 Condition: Stable - Referral to Home Health Primary Care Physician: PCP None - Discharge Plan *PRESCRIPTION DRUG MONITORING PROGRAM REVIEWED*: No *COPY OF PRESCRIPTION DRUG MONITORING REPORT IN PATIENT XOCHILT: No Home Medications: Home Meds Allopurinol [Zyloprim] 300 mg PO DAILY 02/18/20 [History] Colchicine [Colcrys] 0.6 mg PO TID PRN 02/18/20 [History] Diltiazem HCl [Diltiazem 24Hr ER] 180 mg PO DAILY 02/18/20 [History] Furosemide 40 mg PO DAILY 02/18/20 [History] Magnesium Oxide 800 mg PO BID 02/18/20 [History] Metoprolol Succinate 75 mg PO DAILY 02/18/20 [History] Sertraline [Zoloft] 50 mg PO DAILY 02/18/20 [History] hydrALAZINE [Apresoline] 25 mg PO Q8H 02/18/20 [History] traZODone 100 mg PO BEDTIME 02/18/20 [History] Amiodarone [Cordarone] 200 mg PO DAILY 02/21/20 [History] Baclofen 10 mg PO TID PRN 02/21/20 [History] Folic Acid 1 mg PO DAILY 02/21/20 [History] Multivitamin [Multi-Vitamin Daily] 1 each PO DAILY 02/21/20 [History] Nitroglycerin [Nitrostat] 0.4 mg PO Q5M PRN 02/21/20 [History] Warfarin Sliding Scale [Coumadin Sliding Scale] 5 mg PO ASDIRECTED 02/21/20 [History] Warfarin Sodium [Jantoven] 7.5 mg PO ASDIRECTED 02/21/20 [History] metFORMIN HCl [Metformin HCl] 1,000 mg PO BID 02/21/20 [History] ondansetron HCL [Zofran] 4 mg PO Q8H PRN 02/21/20 [History] Fluticasone/Vilanterol [Breo Ellipta 100-25 MCG Inhalation Kit] 2 inhalation INH DAILY 02/23/20 [History] Acetaminophen [Tylenol] 1 - 2 tab PO Q4H PRN 06/10/20 [History] Gabapentin [Neurontin] 300 mg PO BID 06/10/20 [History] atorvaSTATin [Lipitor] 10 mg PO BEDTIME 06/10/20 [History] Acetaminophen [Tylenol] 650 mg PO Q4H PRN tablet 06/12/20 [Rx] Docusate Sodium/Sennosides [Senna Plus] 1 tab PO BID PRN tablet 06/12/20 [Rx] Forms: ED Department Discharge Referrals: PCP,None [Primary Care Provider] - - Discharge Summary/Plan Comment DC Time >30 min.: Yes - Patient Data Vitals - Most Recent: Last Vital Signs Temp 98.2 F 06/12/20 08:00 Pulse 78 06/12/20 11:46 Resp 20 06/12/20 11:46 BP 150/82 H 06/12/20 09:32 Pulse Ox 93 L 06/12/20 11:46 Weight - Most Recent: 432 lb 1.696 oz I&O - Last 24 hours: Intake & Output 06/11/20 06/12/20 06/12/20 22:59 06:59 14:59 Intake Total 3939 Balance 3939 Lab Results - Last 24 hrs: Laboratory Results - last 24 hr 06/12/20 06/12/20 06/12/20 Range/Units 04:45 04:45 04:45 WBC 8.4 (4.5-11.0) K/uL RBC 4.49 (4.30-5.90) M/uL Hgb 12.7 (12.0-15.0) g/dL Hct 40.7 (40.0-54.0) % MCV 91 (80-98) fL MCH 28 (27-31) pg MCHC 31 L (32-36) % Plt Count 146 L (150-400) K/uL Neut % (Auto) 69 H (36-66) % Lymph % (Auto) 15 L (24-44) % Marion % (Auto) 15 H (2-6) % Eos % (Auto) 1 L (2-4) % Baso % (Auto) 1 (0-1) % PT 18.0 H (9.5-12.0) sec INR 1.67 H (0.80-1.20) Sodium 140 (140-148) mmol/L Potassium 3.3 L (3.6-5.2) mmol/L Chloride 102 (100-108) mmol/L Carbon Dioxide 32 (21-32) mmol/L Anion Gap 9.3 (5.0-14.0) mmol/L BUN 21 H (7-18) mg/dL Creatinine 1.4 H (0.8-1.3) mg/dL Est Cr Clr Drug Dosing 50.89 mL/min Estimated GFR (MDRD) 51 L (>60) Glucose 117 H (74-106) mg/dL Calcium 7.9 L (8.5-10.1) mg/dL Total Bilirubin 0.6 (0.2-1.0) mg/dL AST 32 (15-37) U/L ALT 20 (12-78) U/L Alkaline Phosphatase 103 (46-116) U/L Total Protein 6.6 (6.4-8.2) g/dL Albumin 2.4 L (3.4-5.0) g/dL Globulin 4.2 H (2.3-3.5) g/dL Albumin/Globulin Ratio 0.6 L (1.2-2.2) VIANEY Results - Last 24 hrs: Microbiology 06/10/20 08:30 Aerobic Blood Culture - Preliminary Blood - Venous - Lab Draw NO GROWTH AFTER 2 DAYS Anaerobic Blood Culture - Preliminary NO GROWTH AFTER 2 DAYS 06/10/20 08:30 Aerobic Blood Culture - Preliminary Blood - Arm, Right NO GROWTH AFTER 2 DAYS Anaerobic Blood Culture - Preliminary NO GROWTH AFTER 2 DAYS Med Orders - Current: Current Medications Acetaminophen (Tylenol) 650 mg PO Q4H PRN PRN Reason: Pain (Mild 1-3)/fever Last Admin: 06/11/20 11:20 Dose: 650 mg Documented by: Allopurinol (Zyloprim) 300 mg PO DAILY [facility] Last Admin: 06/12/20 10:45 Dose: 300 mg Documented by: Amiodarone HCl (Cordarone) 200 mg PO DAILY [facility] Last Admin: 06/12/20 09:32 Dose: 200 mg Documented by: Atorvastatin Calcium (Lipitor) 10 mg PO BEDTIME [facility] Last Admin: 06/11/20 21:03 Dose: 10 mg Documented by: Baclofen (Lioresal) 10 mg PO TID PRN PRN Reason: Pain Last Admin: 06/11/20 11:19 Dose: 10 mg Documented by: Colchicine (Colcrys) 0.6 mg PO TID PRN PRN Reason: Other Diltiazem HCl (Cardizem Cd) 180 mg PO DAILY [facility] Last Admin: 06/12/20 09:31 Dose: 180 mg Documented by: Enoxaparin Sodium (Lovenox) 40 mg SUBCUT Q24H [facility] Last Admin: 06/11/20 16:19 Dose: 40 mg Documented by: Folic Acid (Folic Acid) 1 mg PO DAILY [facility] Last Admin: 06/12/20 10:44 Dose: 1 mg Documented by: Furosemide (Lasix) 40 mg PO DAILY [facility] Last Admin: 06/12/20 09:32 Dose: 40 mg Documented by: Gabapentin (Neurontin) 300 mg PO BID [facility] Last Admin: 06/12/20 09:33 Dose: 300 mg Documented by: Hydralazine HCl (Apresoline) 25 mg PO Q8H [facility] Last Admin: 11/08/20 05:46 Dose: 25 mg Documented by: Lactated Ringer's (Ringers, Lactated) 1,000 mls @ 100 mls/hr IV ASDIRECTED [facility] Last Admin: 06/12/20 06:06 Dose: 100 mls/hr Documented by: Thiamine HCl 100 mg/ Sodium (Chloride) 101 mls @ 202 mls/hr IV Q24H [facility] Last Admin: 06/11/20 16:20 Dose: 202 mls/hr Documented by: Lorazepam (Ativan) 1 mg IV Q6H PRN PRN Reason: Nausea/Vomiting Magnesium Oxide (Magnesium Oxide) 800 mg PO BID [facility] Last Admin: 06/12/20 10:43 Dose: 800 mg Documented by: Metformin HCl (Glucophage) 1,000 mg PO BID [facility] Last Admin: 06/12/20 10:46 Dose: 1,000 mg Documented by: Metoprolol Succinate (Toprol Xl) 75 mg PO DAILY [facility] Last Admin: 06/12/20 09:32 Dose: 75 mg Documented by: Mometasone Furoate/Formoterol Fumar (Dulera 200-5 Mcg) 2 puff IH BIDRT [facility] Last Admin: 06/12/20 07:22 Dose: 2 puff Documented by: Morphine Sulfate (Morphine) 2 mg IVPUSH Q2H PRN PRN Reason: Pain (severe 7-10) Last Admin: 06/12/20 00:00 Dose: 2 mg Documented by: Multivitamins/Minerals (Thera M Plus) 1 tab PO DAILY [facility] Last Admin: 06/12/20 10:44 Dose: 1 tab Documented by: Nitroglycerin (Nitrostat) 0.4 mg SL Q5M PRN PRN Reason: Chest Pain Ondansetron HCl (Zofran) 4 mg IV Q6H PRN PRN Reason: Nausea/Vomiting Oxycodone HCl (Oxycodone) 5 mg PO Q4H PRN PRN Reason: Pain (moderate 4-6) Senna/Docusate Sodium (Senna Plus) 1 tab PO BID PRN PRN Reason: Constipation Sertraline HCl (Zoloft) 50 mg PO DAILY [facility] Last Admin: 06/12/20 10:44 Dose: 50 mg Documented by: Trazodone HCl (Trazodone) 100 mg PO BEDTIME [facility] Last Admin: 06/11/20 21:03 Dose: 100 mg Documented by: Warfarin Sodium (Coumadin) 5 mg PO SuTuThSa@1300 [facility] Last Admin: 06/11/20 14:01 Dose: 5 mg Documented by: Warfarin Sodium 2.5 mg/ (Warfarin Sodium 5 mg) 7.5 mg PO MoWeFr@1300 [facility] Last Admin: 06/10/20 17:32 Dose: Not Given Documented by: Discontinued Medications Epinephrine HCl (Adrenalin) Confirm Administered Dose 1 mg .ROUTE .STK-MED ONE Stop: 06/10/20 10:13 Furosemide (Lasix) 40 mg PO DAILY [facility] Last Admin: 06/10/20 17:31 Dose: Not Given Documented by: Furosemide (Lasix) 20 mg IV ONETIME ONE Stop: 06/10/20 18:16 Last Admin: 06/10/20 17:49 Dose: 20 mg Documented by: Furosemide (Lasix) 20 mg IV Q24H [facility] Last Admin: 06/11/20 13:51 Dose: Not Given Documented by: Hydralazine HCl (Apresoline) 10 mg IV Q6H [facility] Last Admin: 06/11/20 10:35 Dose: 10 mg Documented by: Sodium Chloride (Normal Saline) 1,000 mls @ 250 mls/hr IV ASDIRECTED [facility] Last Admin: 06/10/20 08:58 Dose: 250 mls/hr Documented by: Diltiazem HCl 100 mg/ Sodium (Chloride) 100 mls @ 5 mls/hr IV TITRATE [facility]; Protocol Last Admin: 06/11/20 05:00 Dose: 15 mg/hr, 15 mls/hr Documented by: Metoprolol Succinate (Toprol Xl) 75 mg PO DAILY [facility] Metoprolol Tartrate (Lopressor) 5 mg IV Q6H [facility] Last Admin: 06/11/20 09:45 Dose: 5 mg Documented by: Ondansetron HCl (Zofran) 4 mg IVPUSH ONETIME ONE Stop: 06/10/20 08:41 Last Admin: 06/10/20 08:59 Dose: 4 mg Documented by: Ondansetron HCl (Zofran) 4 mg IVPUSH ONETIME STA Stop: 06/10/20 12:54 Last Admin: 06/10/20 13:00 Dose: 4 mg Documented by: Pantoprazole Sodium (Protonix Iv) 40 mg IVPUSH ONETIME ONE Stop: 06/10/20 07:48 Last Admin: 06/10/20 08:52 Dose: 40 mg Documented by: Propofol (Diprivan 20 Ml) Confirm Administered Dose 200 mg .ROUTE .STK-MED ONE Stop: 06/10/20 10:20 - Exam Quality Assessment: Reports: DVT Prophylaxis. Denies: Supplemental Oxygen General: Reports: Alert, Oriented, Cooperative, No Acute Distress Lungs: Reports: Clear to Auscultation, Normal Respiratory Effort Cardiovascular: Reports: Regular Rate, Regular Rhythm, No Murmurs GI/Abdominal Exam: Normal Bowel Sounds, Soft, Non-Tender, No Distention, No Abnormal Bruit, No Mass Neurological: Reports: No New Focal Deficit, Normal Gait, Normal Speech, Normal Tone Psy/Mental Status: Reports: Alert, Normal Affect, Normal Mood
[2020-06-12] MEDS: Warfarin 5 MG Tab PO SCH (13:10)
--- NOTE | 2020-06-24 15:22 | OR ---
DATE OF PROCEDURE: 06/10/2020 SURGEON: Benny Buitrago MD PROCEDURE PERFORMED: Esophagogastroduodenoscopy with esophageal variceal banding. COMPLICATIONS: None. YARDING AND FOLDING MACHINE OPERATOR: None. ANESTHETIC: MAC. PREOPERATIVE DIAGNOSIS: Gastrointestinal bleeding. POSTOPERATIVE DIAGNOSIS: Gastrointestinal bleeding. RISKS: Risks, benefits, alternatives, and limitations including, but not limited to infection, bleeding, chronic pain, exsanguination, and other risks not listed here were explained to the patient. They wished to proceed. PROCEDURE IN DETAIL: The patient was placed in left lateral decubitus position. The EGD scope was introduced and advanced atraumatically to the second part of the duodenum. No evidence of duodenitis or ulceration. No gastritis. No gastric ulcer. No abnormalities on retroflex. Within the esophagus itself, there was an esophageal varix which appeared to be bleeding recently. This was banded x1. No abnormal bleeding was noted after banding. The remainder of the esophagus was inspected without abnormality. The patient tolerated the procedure well. Benny Buitrago MD /[id number]
== END 2020-06-12 15:45 | disposition home or self-care (01) | DRG 917 ==
LOC: JP.ED 07:00 → JP.SDS 10:19 → UNDOADMIN 11:17 → JP.ICU 11:17 → UNDODISIN 06-12 15:45
PROVIDERS: ADMIT Surgery; ATTEND Surgery
PROC: 06L38CZ Occlusion of Esophageal Vein with Extraluminal Device, Via Natural or Artificial Opening Endoscopic (ICD-10-PCS; principal; 2020-06-10)
DX: T54.2X1A Toxic effect of corrosive acids and acid-like substances, accidental (unintentional), initial encounter (principal); G92 Toxic encephalopathy; K92.0 Hematemesis; E86.0 Dehydration; Z68.45 Body mass index [BMI] 70 or greater, adult; K92.2 Gastrointestinal hemorrhage, unspecified; I50.9 Heart failure, unspecified; E66.9 Obesity, unspecified; I48.91 Unspecified atrial fibrillation; F10.21 Alcohol dependence, in remission; Z90.49 Acquired absence of other specified parts of digestive tract; E11.9 Type 2 diabetes mellitus without complications; Z79.84 Long term (current) use of oral hypoglycemic drugs; Z88.8 Allergy status to other drugs, medicaments and biological substances; Z79.01 Long term (current) use of anticoagulants; T50.905A Adverse effect of unspecified drugs, medicaments and biological substances, initial encounter; Z79.82 Long term (current) use of aspirin; Z79.899 Other long term (current) drug therapy; Z20.828 Contact with and (suspected) exposure to other viral communicable diseases
CPT/HCPCS: 36415; 36600; 43244; 70450; 71045 ×2; 80053; 80305; 80307; 81001; 82140; 82803; 83605; 83735; 83880; 84484; 85025; 85379; 85610; 86850; 86900; 86901; 87040 ×2; 93005; 93010; 96374; 96375; 96376; 99285 ×2; C9113; J2405; J2704; J7030; U0002; 94640; A9270-GY; J0171; J0360; J1650; J1940; J2270; J3411; J3490; J7050; J7120

== ENCOUNTER 2020-10-05 22:39 | Emergency (ER) | payer MEDICARE, MEDICAID ==
--- NOTE | 2020-10-05 23:27 | EDM.PDOCBH ---
<José Miguel Lockett - Last Filed: 10/06/20 03:14> ED HPI GENERAL MEDICAL PROBLEM - General Chief Complaint: Behavioral/Psych Stated Complaint: [facility] Time Seen by Provider: 10/05/20 22:55 Source of Information: Reports: Patient, EMS History Limitations: Reports: No Limitations - History of Present Illness INITIAL COMMENTS - FREE TEXT/NARRATIVE: Naldo is a 64-year-old male brought in by [facility] for evaluation of suicide ideation they were called to the scene for Marino who was threatening to shoot himself with a handgun. Her splint arrived and the came out of the house with a handgun. Law enforcement noticed that the patient had picked up a rifle inside the house he was pointing towards his abdomen and were able to take this away from the patient. Like the handgun, this too was loaded. The patient expressed a strong willingness to and EMS reported that the was egging him on. The patient has been disabled for the last number of years and is wheelchair-bound. 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 The patient expresses to me sorrow for "taking money out of my pocket every minute he is breathing" because of the money he is obtaining through Social Security disability despite the fact that he contributed to that for 40 years. The patient is tearful and deeply depressed. He has poor eye contact. He repeatedly keeps asking me to send him home. He states that he used to have a good life and good money until he went through 2 divorces which destroyed him. 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 He is lost his bank account. His t hird who is living with now he reports has threatened divorce. EMS has mentioned that they have taken him to the hospital many times for heart related problems and have never seen him this distraught in previous experience. The Allen suicide risk assessment was performed and is a high (red). - Related Data Allergies Allergy/AdvReac Type Severity Reaction Status Date / Time carvedilol [From Coreg] Allergy Other Verified 02/18/20 18:37 spironolactone Allergy Hives Verified 02/18/20 18:37 Home Meds: Home Meds Allopurinol [Zyloprim] 300 mg PO DAILY 02/18/20 [History] Diltiazem HCl [Diltiazem 24Hr ER] 180 mg PO DAILY 02/18/20 [History] Furosemide 40 mg PO DAILY 02/18/20 [History] Magnesium Oxide 800 mg PO BID 02/18/20 [History] Metoprolol Succinate 75 mg PO DAILY 02/18/20 [History] Sertraline [Zoloft] 50 mg PO DAILY 02/18/20 [History] hydrALAZINE [Apresoline] 25 mg PO TID 02/18/20 [History] traZODone 100 mg PO BEDTIME 02/18/20 [History] Amiodarone [Cordarone] 200 mg PO DAILY 02/21/20 [History] Folic Acid 1 mg PO DAILY 02/21/20 [History] Multivitamin [Multi-Vitamin Daily] 1 each PO DAILY 02/21/20 [History] Nitroglycerin [Nitrostat] 0.4 mg PO Q5M PRN 02/21/20 [History] Warfarin Sliding Scale [Coumadin Sliding Scale] 5 mg PO ASDIRECTED 02/21/20 [History] Warfarin Sodium [Jantoven] 7.5 mg PO ASDIRECTED 02/21/20 [History] metFORMIN HCl [Metformin HCl] 1,000 mg PO BID 02/21/20 [History] ondansetron HCL [Zofran] 4 mg PO Q8H PRN 02/21/20 [History] Fluticasone/Vilanterol [Breo Ellipta 100-25 MCG Inhalation Kit] 2 inhalation INH DAILY 02/23/20 [History] Acetaminophen [Tylenol] 1 - 2 tab PO Q4H PRN 06/10/20 [History] Gabapentin [Neurontin] 300 mg PO BID 06/10/20 [History] atorvaSTATin [Lipitor] 10 mg PO BEDTIME 06/10/20 [History] Acetaminophen [Tylenol] 650 mg PO Q4H PRN tablet 06/12/20 [Rx] Docusate Sodium/Sennosides [Senna Plus] 1 tab PO BID PRN tablet 06/12/20 [Rx] Colchicine [Colcrys] 0.6 mg PO TID PRN 10/05/20 [History] Potassium Chloride 40 meq PO BID 10/05/20 [History] metOLazone [Metolazone] 5 mg PO DAILY 10/05/20 [History] tiZANidine [Zanaflex] 4 mg PO Q6H PRN 10/05/20 [History] Past Medical History HEENT History: Reports: Other (See Below) Other HEENT History: esophageal varices Cardiovascular History: Reports: Afib, Heart Failure Gastrointestinal History: Reports: Other (See Below) Other Gastrointestinal History: esophageal varices (one banded on 06/10/2020) Psychiatric History: Reports: Addiction, Other (See Below) Other Psychiatric History: past ETOH addiction. states has not drank for 2.5 months Endocrine/Metabolic History: Reports: Diabetes, Type II, Obesity/BMI 30+ - Infectious Disease History Infectious Disease History: Reports: Chicken Pox - Past Surgical History GI Surgical History: Reports: Cholecystectomy Social & Family History - Family History Family Medical History: Unobtainable - Caffeine Use Caffeine Use: Reports: Soda Caffeine Use Comment: unable to obtain ED ROS GENERAL - Review of Systems Review Of Systems: See Below Constitutional: Reports: Weakness (Generalized), Fatigue HEENT: Reports: No Symptoms Respiratory: Reports: Shortness of Breath Cardiovascular: Reports: Dyspnea on Exertion (Chronic), Edema (Chronic bilateral referral edema), Other (Chronic history of congestive heart failure and atrial fibrillation). Denies: Chest Pain, Blood Pressure Problem Endocrine: Reports: No Symptoms GI/Abdominal: Reports: No Symptoms : Reports: No Symptoms Musculoskeletal: Reports: No Symptoms Skin: Reports: No Symptoms Neurological: Reports: Difficulty Walking (Patient is wheelchair-bound), Other Psychiatric: Reports: Anxiety, Depression, Suicidal Ideation Hematologic/Lymphatic: Reports: No Symptoms Immunologic: Reports: No Symptoms ED EXAM, BEHAVIORAL HEALTH - Physical Exam Exam: See Below Exam Limited By: No Limitations General Appearance: Anxious, Mild Distress Eye Exam: Bilateral Eye: EOMI, PERRL Head: Atraumatic, Normocephalic Neck: Normal Inspection, Supple Respiratory/Chest: No Respiratory Distress, Lungs Clear, Normal Breath Sounds Cardiovascular: Normal Peripheral Pulses, Irregularly Irregular, Other (3+ pitting edema both lower extremities from the knees down.) GI/Abdominal: Normal Bowel Sounds, Soft, Non-Tender Extremities: Non-Tender, Pedal Edema (3+ edema from the knees down.) Neurological: Alert, Normal Cognition, No Motor/Sensory Deficits Psychiatric: Alert, Depressed Mood, Tearful, Poor Eye Contact, Withdrawn, Suicidal Plan, Suicidal Thoughts Skin Exam: Warm, Dry, Wound/incision (Wound on the dorsal right hand. Wound on the abdomen.) COURSE, BEHAVIORAL HEALTH COMP - Course Discharge vs Psych Eval/Treatment:: 10/05/20 23:20 after assessing the patient, I am placing him on a 72-hour hold as he is at very high risk for suicide attempt with the means to complete. His plan is to shoot himself. Prior to arrival, law enforcement had to secure a h andgun which was loaded and a rifle which also was loaded from the patient. 10/05/20 23:55 I reviewed the patient's labs including a CBC, comprehensive metabolic panel, salicylate and acetaminophen, urinalysis, urine drug screen, and ethanol. CBC is unremarkable. Comprehensive metabolic panel significant for a potassium of 2.9 and a glucose of 209. Acetaminophen and salicylate are both negative. Urinalysis is unremarkable. Urine drug screen is negative. Ethanol is 53. Currently no beds available in the [facility] that are capable of taking care of the patient. He remains in the ED on a 72-hour hold. We will have to try again in the morning to see if there is any bed availability. The limiting factor is the patient's markedly limited mobility and abilities including cardiac and diabetic care. 10/06/20 03:24 I did order potassium chloride 40 mEq by mouth for his potassium of 2.9. Departure - Departure Disposition: Home, Self-Care 01 Clinical Impression: Suicide ideation, CHF, Congestive heart failure, On Coumadin for atrial fibrillation, Hypokalemia Major depression Qualifiers: Major depression recurrence: unspecified whether recurrent Active/Remission status: currently active Major depression episode severity: severe Psychotic features: without psychotic features Qualified Code(s): F32.2 - Major depressive disorder, single episode, severe without psychotic features Type 2 diabetes mellitus Qualifiers: Diabetes mellitus correction insulin use: without intermission coordinator use Diabetes mellitus complication status: with hyperglycemia Qualified Code(s): E11.65 - Type 2 diabetes mellitus with hyperglycemia Atrial fibrillation Qualifiers: Atrial fibrillation type: paroxysmal Qualified Code(s): I48.0 - Paroxysmal atrial fibrillation - Discharge Information Instructions: Living With Depression, Hypokalemia Referrals: Warren Clinton NP [Nurse Practitioner] - 10/12/20 12:00 pm (Your appoitment with Warren Clinton is at the [facility].) Forms: ED Department Discharge Care Plan Goals: A referral was made to [facility] for home care services. [facility] will contact you to scheduled your home visit. [facility] phone number is [phone]. CANDIDA Rodriguez from [facility], updated and will assist with home and mental health services. [facility] phone number is [phone] - Problem List & Annotations (1) Major depression SNOMED Code(s): 275409298 Code(s): F32.9 - MAJOR DEPRESSIVE DISORDER, SINGLE EPISODE, UNSPECIFIED Status: Acute Priority: High Qualifiers: Major depression recurrence: unspecified whether recurrent Active/Remission status: currently active Major depression episode severity: severe Psychotic features: without psychotic features Qualified Code(s): F32.2 - Major depressive disorder, single episode, severe without psychotic features (2) Suicide ideation SNOMED Code(s): 9385191 Code(s): R45.851 - SUICIDAL IDEATIONS Status: Acute Priority: High (3) Atrial fibrillation SNOMED Code(s): 39365305 Code(s): I48.91 - UNSPECIFIED ATRIAL FIBRILLATION Status: Chronic Priority: Medium Qualifiers: Atrial fibrillation type: paroxysmal Qualified Code(s): I48.0 - Paroxysmal atrial fibrillation (4) Type 2 diabetes mellitus SNOMED Code(s): 68660614 Code(s): E11.9 - TYPE 2 DIABETES MELLITUS WITHOUT COMPLICATIONS Status: Chronic Priority: Medium Qualifiers: Diabetes mellitus correction insulin use: without intermission coordinator use Diabetes mellitus complication status: with hyperglycemia Qualified Code(s): E11.65 - Type 2 diabetes mellitus with hyperglycemia (5) On Coumadin for atrial fibrillation SNOMED Code(s): 53414700 Code(s): I48.91 - UNSPECIFIED ATRIAL FIBRILLATION; Z79.01 - ALF (CURRENT) USE OF ANTICOAGULANTS Status: Chronic Priority: Medium (6) Hypokalemia SNOMED Code(s): 81880436 Code(s): E87.6 - HYPOKALEMIA Status: Acute Priority: High - Problem List Review Problem List Initiated/Reviewed/Updated: Yes <OfficerRenny - Last Filed: 10/08/20 10:06> COURSE, BEHAVIORAL HEALTH COMP - Course Re-Assessment/Re-Exam: Took over care from Dr. Lockett, at 7 AM, Marino awoke this morning around 10:00 realizes that he made a mistake denies wanting to harm himself would like to talk to a mental health provider if her crisis team has been contacted for an evaluation he is currently on a 72-hour hold Departure - Departure Time of Disposition: 10:08 Condition: Fair - Assessment/Plan Plan: Assessment Acuity = acute Site and laterality = suicidal ideation Etiology = multiple mental health issues Manifestations = none Location of injury = Home Lab values = CBC unremarkable CMP unremarkable except for potassium low 2.9 consistent hypokalemia corrected to 3.5 INR was initially around 6 corrected to 2.3 Covid was negative Plan He did have evaluation by crisis team which did recommend a safety contract with family and home however they were not available and cannot provide a safe environment until today, also had a telehealth consultation with Dr. Larsen who did recommend medication changes prescription written by Dr. Noel. Family feels they can provide a safe environment for him at home and I am willing to take him home today he is currently on a 72-hour hold but this will be lifted as we do have a safe environment for him. This note was dictated using [employer] voice recognition software please call with any questions on syntax or grammar. <Li Noel - Last Filed: 10/10/20 08:32> COURSE, BEHAVIORAL HEALTH COMP - Course Vital Signs: Last Vital Signs Temp 36.3 C 10/07/20 09:35 Pulse 109 H 10/08/20 09:34 Resp 18 10/08/20 09:30 BP 185/98 H 10/08/20 09:34 Pulse Ox 95 10/08/20 09:30 Orders, Labs, Meds: Laboratory Tests 10/05/20 10/05/20 10/05/20 Range/Units 23:19 23:19 23:19 WBC 6.0 (4.5-11.0) K/uL RBC 4.54 (4.30-5.90) M/uL Hgb 13.2 (12.0-15.0) g/dL Hct 40.1 (40.0-54.0) % MCV 88 (80-98) fL MCH 29 (27-31) pg MCHC 33 (32-36) % Plt Count 196 (150-400) K/uL Neut % (Auto) 62 (36-66) % Lymph % (Auto) 18 L (24-44) % Upson % (Auto) 16 H (2-6) % Eos % (Auto) 3 (2-4) % Baso % (Auto) 1 (0-1) % PT (9.5-12.0) sec INR Sodium 138 L (140-148) mmol/L Potassium 2.9 L* (3.6-5.2) mmol/L Chloride 100 (100-108) mmol/L Carbon Dioxide 25 (21-32) mmol/L Anion Gap 15.9 H (5.0-14.0) mmol/L BUN 15 (7-18) mg/dL Creatinine 1.3 (0.8-1.3) mg/dL Est Cr Clr Drug Dosing 54.81 mL/min Estimated GFR (MDRD) 55 L (>60) Glucose 209 H (74-106) mg/dL Calcium 8.3 L (8.5-10.1) mg/dL Total Bilirubin 0.2 D (0.2-1.0) mg/dL AST 36 (15-37) U/L ALT 23 (12-78) U/L Alkaline Phosphatase 124 H (46-116) U/L Total Protein 6.7 (6.4-8.2) g/dL Albumin 2.5 L (3.4-5.0) g/dL Globulin 4.2 H (2.3-3.5) g/dL Albumin/Globulin Ratio 0.6 L (1.2-2.2) Salicylates 6.9 (2.0-20.0) mg/dL Urine Opiates Screen (NEGATIVE) Ur Oxycodone Screen (NEGATIVE) Urine Methadone Screen (NEGATIVE) Ur Propoxyphene Screen (NEGATIVE) Acetaminophen 0.0 L (10.0-30.0) ug/mL Ur Barbiturates Screen (NEGATIVE) Ur Tricyclics Screen (NEGATIVE) Ur Phencyclidine Scrn (NEGATIVE) Ur Amphetamine Screen (NEGATIVE) U Methamphetamines Scrn (NEGATIVE) Urine MDMA Screen (NEGATIVE) U Benzodiazepines Scrn (NEGATIVE) U Cocaine Metab Screen (NEGATIVE) U Marijuana (THC) Screen (NEGATIVE) Ethyl Alcohol mg/dL SARS CoV-2 RNA Rapid ASA 10/05/20 10/05/20 10/05/20 Range/Units 23:28 23:42 23:53 WBC (4.5-11.0) K/uL RBC (4.30-5.90) M/uL Hgb (12.0-15.0) g/dL Hct (40.0-54.0) % MCV (80-98) fL MCH (27-31) pg MCHC (32-36) % Plt Count (150-400) K/uL Neut % (Auto) (36-66) % Lymph % (Auto) (24-44) % Upson % (Auto) (2-6) % Eos % (Auto) (2-4) % Baso % (Auto) (0-1) % PT (9.5-12.0) sec INR Sodium (140-148) mmol/L Potassium (3.6-5.2) mmol/L Chloride (100-108) mmol/L Carbon Dioxide (21-32) mmol/L Anion Gap (5.0-14.0) mmol/L BUN (7-18) mg/dL Creatinine (0.8-1.3) mg/dL Est Cr Clr Drug Dosing mL/min Estimated GFR (MDRD) (>60) Glucose (74-106) mg/dL Calcium (8.5-10.1) mg/dL Total Bilirubin (0.2-1.0) mg/dL AST (15-37) U/L ALT (12-78) U/L Alkaline Phosphatase (46-116) U/L Total Protein (6.4-8.2) g/dL Albumin (3.4-5.0) g/dL Globulin (2.3-3.5) g/dL Albumin/Globulin Ratio (1.2-2.2) Salicylates (2.0-20.0) mg/dL Urine Opiates Screen Negative (NEGATIVE) Ur Oxycodone Screen Negative (NEGATIVE) Urine Methadone Screen Negative (NEGATIVE) Ur Propoxyphene Screen Negative (NEGATIVE) Acetaminophen (10.0-30.0) ug/mL Ur Barbiturates Screen Negative (NEGATIVE) Ur Tricyclics Screen Negative (NEGATIVE) Ur Phencyclidine Scrn Negative (NEGATIVE) Ur Amphetamine Screen Negative (NEGATIVE) U Methamphetamines Scrn Negative (NEGATIVE) Urine MDMA Screen Negative (NEGATIVE) U Benzodiazepines Scrn Negative (NEGATIVE) U Cocaine Metab Screen Negative (NEGATIVE) U Marijuana (THC) Screen Negative (NEGATIVE) Ethyl Alcohol 53 mg/dL SARS CoV-2 RNA Rapid ASA Negative 10/06/20 10/07/20 10/07/20 Range/Units 20:32 09:35 09:35 WBC (4.5-11.0) K/uL RBC (4.30-5.90) M/uL Hgb (12.0-15.0) g/dL Hct (40.0-54.0) % MCV (80-98) fL MCH (27-31) pg MCHC (32-36) % Plt Count (150-400) K/uL Neut % (Auto) (36-66) % Lymph % (Auto) (24-44) % Upson % (Auto) (2-6) % Eos % (Auto) (2-4) % Baso % (Auto) (0-1) % PT > 100.0 H 66.2 H (9.5-12.0) sec INR Not Reportable 6.30 H* D Sodium (140-148) mmol/L Potassium 3.5 L (3.6-5.2) mmol/L Chloride (100-108) mmol/L Carbon Dioxide (21-32) mmol/L Anion Gap (5.0-14.0) mmol/L BUN (7-18) mg/dL Creatinine (0.8-1.3) mg/dL Est Cr Clr Drug Dosing mL/min Estimated GFR (MDRD) (>60) Glucose (74-106) mg/dL Calcium (8.5-10.1) mg/dL Total Bilirubin (0.2-1.0) mg/dL AST (15-37) U/L ALT (12-78) U/L Alkaline Phosphatase (46-116) U/L Total Protein (6.4-8.2) g/dL Albumin (3.4-5.0) g/dL Globulin (2.3-3.5) g/dL Albumin/Globulin Ratio (1.2-2.2) Salicylates (2.0-20.0) mg/dL Urine Opiates Screen (NEGATIVE) Ur Oxycodone Screen (NEGATIVE) Urine Methadone Screen (NEGATIVE) Ur Propoxyphene Screen (NEGATIVE) Acetaminophen (10.0-30.0) ug/mL Ur Barbiturates Screen (NEGATIVE) Ur Tricyclics Screen (NEGATIVE) Ur Phencyclidine Scrn (NEGATIVE) Ur Amphetamine Screen (NEGATIVE) U Methamphetamines Scrn (NEGATIVE) Urine MDMA Screen (NEGATIVE) U Benzodiazepines Scrn (NEGATIVE) U Cocaine Metab Screen (NEGATIVE) U Marijuana (THC) Screen (NEGATIVE) Ethyl Alcohol mg/dL SARS CoV-2 RNA Rapid ASA 10/08/20 Range/Units 05:20 WBC (4.5-11.0) K/uL RBC (4.30-5.90) M/uL Hgb (12.0-15.0) g/dL Hct (40.0-54.0) % MCV (80-98) fL MCH (27-31) pg MCHC (32-36) % Plt Count (150-400) K/uL Neut % (Auto) (36-66) % Lymph % (Auto) (24-44) % Upson % (Auto) (2-6) % Eos % (Auto) (2-4) % Baso % (Auto) (0-1) % PT 25.3 H (9.5-12.0) sec INR 2.36 H D Sodium (140-148) mmol/L Potassium (3.6-5.2) mmol/L Chloride (100-108) mmol/L Carbon Dioxide (21-32) mmol/L Anion Gap (5.0-14.0) mmol/L BUN (7-18) mg/dL Creatinine (0.8-1.3) mg/dL Est Cr Clr Drug Dosing mL/min Estimated GFR (MDRD) (>60) Glucose (74-106) mg/dL Calcium (8.5-10.1) mg/dL Total Bilirubin (0.2-1.0) mg/dL AST (15-37) U/L ALT (12-78) U/L Alkaline Phosphatase (46-116) U/L Total Protein (6.4-8.2) g/dL Albumin (3.4-5.0) g/dL Globulin (2.3-3.5) g/dL Albumin/Globulin Ratio (1.2-2.2) Salicylates (2.0-20.0) mg/dL Urine Opiates Screen (NEGATIVE) Ur Oxycodone Screen (NEGATIVE) Urine Methadone Screen (NEGATIVE) Ur Propoxyphene Screen (NEGATIVE) Acetaminophen (10.0-30.0) ug/mL Ur Barbiturates Screen (NEGATIVE) Ur Tricyclics Screen (NEGATIVE) Ur Phencyclidine Scrn (NEGATIVE) Ur Amphetamine Screen (NEGATIVE) U Methamphetamines Scrn (NEGATIVE) Urine MDMA Screen (NEGATIVE) U Benzodiazepines Scrn (NEGATIVE) U Cocaine Metab Screen (NEGATIVE) U Marijuana (THC) Screen (NEGATIVE) Ethyl Alcohol mg/dL SARS CoV-2 RNA Rapid ASA Medications Discontinued Medications Generic Name Dose Route Start Last Admin Trade Name Freq PRN Reason Stop Dose Admin Hydrocodone Bitart/Acetaminophen 1 tab 10/07/20 00:31 10/07/20 00:36 [place] 325-5 Mg PO 10/07/20 00:32 1 tab ONETIME ONE Administration Allopurinol 300 mg 10/06/20 20:15 10/08/20 09:32 Zyloprim PO 300 mg DAILY JENISE Administration Amiodarone HCl 200 mg 10/06/20 20:00 10/08/20 09:33 Cordarone PO 200 mg DAILY JENISE Administration Aripiprazole 2.5 mg 10/07/20 13:45 10/07/20 14:19 Abilify PO 10/07/20 13:46 2.5 mg ONETIME ONE Administration Aripiprazole 2.5 mg 10/08/20 08:00 10/08/20 09:34 Abilify PO 10/08/20 08:01 2.5 mg ONETIME ONE Administration Atorvastatin Calcium 10 mg 10/06/20 21:00 10/07/20 23:57 Lipitor PO Not Given BEDTIME JENISE Colchicine 0.6 mg 10/06/20 19:53 10/06/20 20:39 Colcrys PO 0.6 mg TID PRN Administration Inflammation Al Hydroxide/Mg Hydroxide 15 0 ml 10/07/20 20:38 10/07/20 23:58 ml/ Lidocaine HCl 15 ml PO 10/07/20 20:39 Not Given ONETIME ONE Diltiazem HCl 180 mg 10/06/20 20:00 10/08/20 09:34 Cardizem Cd PO 180 mg DAILY JENISE Administration Docusate Sodium 100 mg 10/06/20 21:00 10/08/20 08:40 Colace PO Not Given BID JENISE Duloxetine HCl 60 mg 10/08/20 08:00 10/08/20 09:33 Cymbalta PO 10/08/20 08:01 60 mg ONETIME ONE Administration Folic Acid 1 mg 10/06/20 20:00 10/08/20 09:33 Folic Acid PO 1 mg DAILY JENISE Administration Furosemide 40 mg 10/06/20 20:15 10/08/20 09:34 Lasix PO 40 mg DAILY JENISE Administration Gabapentin 300 mg 10/06/20 21:00 10/08/20 09:33 Neurontin PO 300 mg BID JENISE Administration Hydralazine HCl 25 mg 10/06/20 20:00 10/08/20 08:39 Apresoline PO Not Given Q8H JENISE Loperamide HCl 4 mg 10/07/20 15:42 10/07/20 16:32 Imodium PO 10/07/20 15:43 4 mg ONETIME ONE Administration Magnesium Oxide 800 mg 10/06/20 21:00 10/08/20 09:32 Magnesium Oxide PO 800 mg BID JENISE Administration Metformin HCl 1,000 mg 10/07/20 08:00 10/08/20 09:32 Glucophage PO 1,000 mg BIDMEALS [facility] Administration Metoclopramide HCl 10 mg 10/07/20 17:46 10/07/20 18:13 Reglan IM 10/07/20 17:47 10 mg ONETIME ONE Administration Metolazone 5 mg 10/06/20 20:15 10/08/20 09:33 Zaroxolyn PO 5 mg DAILY JENISE Administration Metoprolol Succinate 75 mg 10/06/20 20:00 10/08/20 09:34 Toprol Xl PO 75 mg DAILY JENISE Administration Ondansetron HCl 4 mg 10/06/20 19:53 10/07/20 19:36 Zofran Odt PO 4 mg Q8H PRN Administration Nausea/Vomiting Ondansetron HCl 4 mg 10/07/20 16:38 10/07/20 16:38 Zofran Odt PO 10/07/20 16:39 4 mg ONETIME ONE Administration Phytonadione 1 mg 10/06/20 22:10 10/06/20 22:46 Aquamephyton IM 10/06/20 22:11 Not Given ONETIME ONE Phytonadione 1 mg 10/06/20 22:47 10/06/20 23:20 Aquamephyton IM 03/04/21 22:48 1 mg ONETIME ONE Administration Phytonadione 3 mg 10/07/20 10:30 10/07/20 10:49 Aquamephyton IM 10/07/20 10:31 3 mg ONETIME ONE Administration Potassium Chloride 40 meq 10/06/20 03:23 10/06/20 04:29 Klor-Con M20 PO 10/06/20 03:24 40 meq ONETIME ONE Administration Potassium Chloride 40 meq 10/06/20 21:00 10/08/20 09:33 Klor-Con M20 PO 40 meq BID JENISE Administration Sertraline HCl 50 mg 10/06/20 20:15 10/07/20 10:05 Zoloft PO 50 mg DAILY JENISE Administration Tizanidine HCl 4 mg 10/06/20 19:53 Zanaflex PO Q6H PRN Muscle Spasm Trazodone HCl 100 mg 10/06/20 21:00 10/06/20 20:38 Trazodone PO 100 mg BEDTIME JENISE Administration Warfarin Sodium 5 mg 10/07/20 13:00 10/07/20 13:51 Coumadin PO Not Given DAILY@1300 [facility] Discharge vs Psych Eval/Treatment:: 10/07/20 10:06 potassium was rechecked and it was 3.5 and had been 2.9. He had a inr today which was 6. He was given vit k 3 mg. will get another inr this pm or in the am. No coumadin today. The plan is for him to go home this pm or in the am. Home care will be supporting the pt. He will be receiving counseling. The is in the process of locking up all knifes and guns. 10/07/20 12:00 A consult was obtained with Dr Larsen. He felt he should have medication changes. He would like to stop the zoloft and start cymbalta 60 mg qam and abilify 2 mg Qam. He would like to followup with the pt in 2 weeks virtually. The number to call would be [phone] He would also stop the trazone 100-mg at bedtime.
[2020-10-06] MEDS ORDERED: Potassium Chloride 20 MEQ Tab.ER PO ONE (03:23)
[2020-10-06] MEDS ORDERED: Ondansetron 4 MG Tab.DIS PO PRN (19:53)
[2020-10-06] MEDS ORDERED: tiZANidine 4 MG Tab PO PRN (19:53)
[2020-10-06] MEDS ORDERED: Colchicine 0.6 MG Tab PO PRN (19:53)
[2020-10-06] MEDS: Metoprolol Succinate 25 MG Tab.ER PO SCH (20:35)
[2020-10-06] MEDS: Diltiazem 180 MG Cap.CD PO SCH (20:37)
[2020-10-06] MEDS: Allopurinol 100 MG Tab PO SCH (20:38)
[2020-10-06] MEDS: atorvaSTATin 10 MG Tab PO SCH (20:38)
[2020-10-06] MEDS: Docusate Sodium 100 MG Cap PO SCH (20:38)
[2020-10-06] MEDS: Amiodarone 200 MG Tab PO SCH (20:38)
[2020-10-06] MEDS: Potassium Chloride 20 MEQ Tab.ER PO SCH (20:38)
[2020-10-06] MEDS: Sertraline 50 MG Tab PO SCH (20:39)
[2020-10-06] MEDS: Gabapentin 300 MG Cap PO SCH (20:39)
[2020-10-06] MEDS: Magnesium Oxide 400 MG Tab PO SCH (20:39)
[2020-10-06] MEDS: Folic Acid 1 MG Tab PO SCH (20:39)
[2020-10-06] MEDS: Metolazone 2.5 MG Tab PO SCH (20:43)
[2020-10-06] MEDS: hydrALAZINE 25 MG Tab PO SCH (20:44)
[2020-10-06] MEDS: Furosemide 40 MG Tab PO SCH (20:44)
[2020-10-06] MEDS ORDERED: traZODone 50 MG Tab PO SCH (21:00)
[2020-10-07] MEDS ORDERED: Acetaminophen/HYDROcodone 325-5 MG Tab PO ONE (00:31)
[2020-10-07] MEDS: hydrALAZINE 25 MG Tab PO SCH ×3 (08:43→23:57)
[2020-10-07] MEDS: Diltiazem 180 MG Cap.CD PO SCH (10:01)
[2020-10-07] MEDS: Amiodarone 200 MG Tab PO SCH (10:01)
[2020-10-07] MEDS: Docusate Sodium 100 MG Cap PO SCH ×2 (10:01→20:50)
[2020-10-07] MEDS: Folic Acid 1 MG Tab PO SCH (10:02)
[2020-10-07] MEDS: metFORMIN 500 MG Tab PO SCH ×2 (10:02→21:38)
[2020-10-07] MEDS: Potassium Chloride 20 MEQ Tab.ER PO SCH ×2 (10:03→23:57)
[2020-10-07] MEDS: Furosemide 40 MG Tab PO SCH (10:04)
[2020-10-07] MEDS: Magnesium Oxide 400 MG Tab PO SCH ×2 (10:04→23:57)
[2020-10-07] MEDS: Metoprolol Succinate 25 MG Tab.ER PO SCH (10:04)
[2020-10-07] MEDS: Gabapentin 300 MG Cap PO SCH ×2 (10:04→23:57)
[2020-10-07] MEDS: Metolazone 2.5 MG Tab PO SCH (10:05)
[2020-10-07] MEDS: Allopurinol 100 MG Tab PO SCH (10:05)
[2020-10-07] MEDS: Sertraline 50 MG Tab PO SCH (10:05)
[2020-10-07] MEDS ORDERED: ARIPiprazole 10 MG Tab PO ONE ×2 (11:59→13:45)
[2020-10-07] MEDS ORDERED: Warfarin 5 MG Tab PO SCH (13:00)
--- NOTE | 2020-10-07 14:34 | CONS ---
DATE OF SERVICE: 10/07/2020 REFERRING PHYSICIAN: CONSULTING PHYSICIAN: Robert Larsen MD Site where the services are provided is [facility] in [place], [place]. Site where the services are provided from our offices in [facility]. Length of service for this 60-minute emergency room clinical event is 60 minutes. IDENTIFICATION: The patient is a 64-year-old male who is admitted to the inpatient emergency room unit at [facility] in [place], [place] after threatening to kill himself with a gun. He was brought in by police. He has been monitored in the emergency room now and is seen for psychiatric consultation per the request of staff attending, Dr. Noel, and her treatment team. CHIEF COMPLAINT: "I am , and the had a few words with me, and I felt I was not good enough." HISTORY OF PRESENT ILLNESS: The patient is a 64-year-old male who was threatening suicide with a gun in the face of alcohol intoxication. He states that I started drinking heavy about 2 weeks ago "because he was feeling more depressed." Evidently, he was threatening to shoot himself in the head and "he was pointing it" around at different parts of his body. Now that the patient has been brought in for evaluation, and he has sobered up. He is very remorseful, and he denies that he is suicidal at this point in time. He denies that he is homicidal. He denies any psychotic, delusional, or paranoid symptoms. He is urszula for safety, and he states that he will not drink anymore. He states that he does struggle with depression, feelings of low self-esteem, and guilt as well as anxiety and some mood swings. He states he had variable sleep secondary to pain. He racing thoughts, ruminations, and poor appetite. He has lot of medical issues as well. He states that he has been taking Zoloft and trazodone "for couple of years now," but he does not feel that they have done anything meaningful for him. He has guns at home and knives at home, but they have all been removed according to his and staff reporting, and again, the patient is urszula for safety, but he does want something to help him feel better. PSYCHIATRIC MEDICATIONS AT PRESENTATION: 1. Zoloft 50 mg daily. 2. Trazodone 100 mg at bedtime. ALLERGIES: 1. THE PATIENT IS ALLERGIC TO CARVEDILOL. 2. THE PATIENT IS ALLERGIC TO SPIRONOLACTONE. PAST MEDICAL HISTORY: 1. CHF. 2. Atrial fibrillation. 3. Diabetes. 4. Sleep apnea. 5. Obesity. 6. Neuropathy. REVIEW OF SYSTEMS: Aside from cardiovascular, endocrine, musculoskeletal, and neurologic all other major organ systems are negative at this point in time for acute difficulties or complications. FAMILY PSYCHIATRIC AND CD HISTORY: The patient reports mother and father both struggled with depression. PAST PSYCHIATRIC AND CD HISTORY: The patient reports 1 psychiatric hospitalization at 23 years of age. He denies any chemical dependency treatments in the past. He denies any previous suicide attempts. He denies any self-injurious behavior history. He reports no eating disorder history or abuse issues while being raised. He denies any past psychiatric medication history. SOCIAL HISTORY: The patient was born and raised in [place], [place]. He has been living in [place], [place] with his third . He has been living in the area for about past 27 years. He has been x3. His current marriage is for 11 years. He has 3 children from the first marriage, 5 children from his second marriage. He has a good relationship with the majority of his children. 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 He denies any prior service or any legal difficulties. He is Anglican in terms of his clyde formation. He enjoys outdoor activities in [place]. MENTAL STATUS EXAMINATION: The patient is a 64-year-old white male in no apparent distress. Speech is regular rate and rhythm. The patient is cognitively oriented x3. Psychomotor activity is within normal limits. There are no abnormal motor movements or tics observed. Gait and station are not observed as the patient is sitting on an emergency room bay on a gurney. Mood is depressed and anxious. Affect is restricted but cooperative overall for the purposes of the emergency room consult. There is no behavioral or stated evidence of acute suicidal or homicidal ideation or acute psychotic, delusional, or paranoid symptoms. Thought processes are significant for racing thoughts and ruminations. However, there is no manic symptoms or loose associations evident. Judgement and insight appear unimpaired at this point in time. Motivation for help is good. PHYSICAL EXAMINATION: VITAL SIGNS: 5 feet 9 inches tall, 375 pounds. 143/79, 86, 20, and 98.6 degrees. IMPRESSION: Simms I: 1. Bipolar affective disease, mixed type, F31.60. 2. Anxiety disorder, not otherwise specified, F41.9. 3. Alcohol abuse verus dependence. 4. Rule out posttraumatic stress disorder. 5. Rule out major depressive disorder. Simms II: None. Simms III: 1. Congestive heart failure. 2. Atrial fibrillation. 3. Diabetes. 4. Sleep apnea. 5. Obesity. 6. Neuropathy. Simms IV: Severe. Simms V: 55 to 60. PLAN: 1. Discontinue Zoloft. 2. Discontinue trazodone. 3. Begin trial of Cymbalta 60 mg q.a.m. for symptoms of depression as well as neuropathic pain reduction. 4. Begin trial of Abilify 2 mg q.a.m. for clarity of thought, mood stability, and elimination of any psychotic or paranoid symptoms. 5. The patient is apprised of benefits and side effects of his newly initiated psychiatric medication regimen. He acknowledges understanding of these. He has no further questions by the end of interview session. 6. Sobriety. 7. Recommend that patient maintain good hydration status to help with full function throughout the day and also explore dietary modification to help with weight loss. 8. Recommend the patient to follow up with outpatient psychiatry approximately 2 weeks from discharge from the emergency room to assess his overall function and efficacy of his newly recommended psychiatric medication regimen. 9. We will follow up with patient sooner if there are any complications in interm, but the patient does appear safe to be discharged from emergency room now from a psychiatric standpoint as he does not appear to be an acute danger to himself or others at this point in time. 10.A crisis plan is in place. Robert Larsen MD /[id number]
[2020-10-07] MEDS ORDERED: Loperamide 2 MG Cap PO ONE (15:42)
[2020-10-07] MEDS ORDERED: Ondansetron 4 MG Tab.DIS PO ONE (16:38)
[2020-10-07] MEDS ORDERED: Metoclopramide 10 MG/2 ML SDV IM ONE (17:46)
[2020-10-07] MEDS ORDERED: Alum Hydrox/Mag Hydrox/Simeth 15 ML, Lidocaine 2% 15 ML PO ONE ×2 (20:38)
[2020-10-07] MEDS: atorvaSTATin 10 MG Tab PO SCH (23:57)
[2020-10-08] MEDS ORDERED: DULoxetine 30 MG Cap PO ONE (08:00)
[2020-10-08] MEDS ORDERED: ARIPiprazole 10 MG Tab PO ONE (08:00)
[2020-10-08] MEDS: hydrALAZINE 25 MG Tab PO SCH (08:39)
[2020-10-08] MEDS: Docusate Sodium 100 MG Cap PO SCH (08:40)
[2020-10-08] MEDS: Allopurinol 100 MG Tab PO SCH (09:32)
[2020-10-08] MEDS: Magnesium Oxide 400 MG Tab PO SCH (09:32)
[2020-10-08] MEDS: metFORMIN 500 MG Tab PO SCH (09:32)
[2020-10-08] MEDS: Amiodarone 200 MG Tab PO SCH (09:33)
[2020-10-08] MEDS: Gabapentin 300 MG Cap PO SCH (09:33)
[2020-10-08] MEDS: Metolazone 2.5 MG Tab PO SCH (09:33)
[2020-10-08] MEDS: Potassium Chloride 20 MEQ Tab.ER PO SCH (09:33)
[2020-10-08] MEDS: Folic Acid 1 MG Tab PO SCH (09:33)
[2020-10-08] MEDS: Metoprolol Succinate 25 MG Tab.ER PO SCH (09:34)
[2020-10-08] MEDS: Diltiazem 180 MG Cap.CD PO SCH (09:34)
[2020-10-08] MEDS: Furosemide 40 MG Tab PO SCH (09:34)
== END 2020-10-08 10:38 | disposition home or self-care (01) ==
LOC: JP.ED 22:39
DX: F32.2 Major depressive disorder, single episode, severe without psychotic features (principal); E11.65 Type 2 diabetes mellitus with hyperglycemia; I48.0 Paroxysmal atrial fibrillation; I50.9 Heart failure, unspecified; E87.6 Hypokalemia; E66.9 Obesity, unspecified; Z68.43 Body mass index [BMI] 50.0-59.9, adult; Z79.01 Long term (current) use of anticoagulants; Z88.8 Allergy status to other drugs, medicaments and biological substances; Z79.84 Long term (current) use of oral hypoglycemic drugs; Z79.899 Other long term (current) drug therapy; Z20.822 Contact with and (suspected) exposure to COVID-19
CPT/HCPCS: 36415; 80053; 80143; 80179; 80305; 80307; 84132; 85025; 85610; 99285; A9270; J2765; J3430; U0002

== ENCOUNTER 2021-07-22 20:16 | Emergency (ER) | payer MEDICARE, MEDICAID ==
[2021-07-22] MEDS ORDERED: Sodium Chloride 0.9% 10 ML Syringe FLUSH PRN (20:34)
--- NOTE | 2021-07-22 21:03 | EDM.PDOC ---
ED HPI GENERAL MEDICAL PROBLEM - General Chief Complaint: General Stated Complaint: HIGH BLOOD SUGAR, DEHYDRATED Time Seen by Provider: 07/22/21 20:50 Source of Information: Reports: Patient, Family, Old Records History Limitations: Reports: No Limitations - History of Present Illness INITIAL COMMENTS - FREE TEXT/NARRATIVE: Marino is a 65-year-old male presenting to the ED for evaluation of increased weakness, tiredness, not feeling well, high blood glucose, not eating or drinking, and just a general decline in his total condition over the last several weeks. The patient normally sees Warren Kilgore CNP for management of his diabetes but does not check his blood sugars and according to the has not been very compliant with his medications. He has been sleeping most of the day and when he awakes he is confused. He has numerous skin ulcerations on both feet and in his perineal area from sitting in his wheelchair all day when he is not sleeping. He has very limited mobility. Patient complains of nausea and generally just not feeling well. He is very vague in his symptoms. He repeatedly states that he just wants to go home. - Related Data Allergies Allergy/AdvReac Type Severity Reaction Status Date / Time carvedilol [From Coreg] Allergy Other Verified 07/22/21 20:36 spironolactone Allergy Hives Verified 07/22/21 20:36 Home Meds: Home Meds Diltiazem HCl [Diltiazem 24Hr ER] 180 mg PO DAILY 02/18/20 [History] Furosemide 40 mg PO DAILY 02/18/20 [History] Magnesium Oxide 800 mg PO BID 02/18/20 [History] Metoprolol Succinate 75 mg PO DAILY 02/18/20 [History] allopurinoL [Zyloprim] 300 mg PO BID 02/18/20 [History] hydrALAZINE [Apresoline] 25 mg PO TID 02/18/20 [History] traZODone 100 mg PO BEDTIME PRN 02/18/20 [History] Amiodarone [Cordarone] 200 mg PO DAILY 02/21/20 [History] Folic Acid 1 mg PO DAILY 02/21/20 [History] Multivitamin [Multi-Vitamin Daily] 1 each PO DAILY 02/21/20 [History] Nitroglycerin [Nitrostat] 0.4 mg PO Q5M PRN 02/21/20 [History] metFORMIN HCl [Metformin HCl] 1,000 mg PO BID 02/21/20 [History] ondansetron HCL [Zofran] 4 mg PO Q8H PRN 02/21/20 [History] Fluticasone/Vilanterol [Breo Ellipta 100-25 MCG Inhalation Kit] 2 inhalation INH DAILY 02/23/20 [History] Acetaminophen [Tylenol] 1 - 2 tab PO Q4H PRN 06/10/20 [History] Gabapentin [Neurontin] 300 mg PO BID 06/10/20 [History] atorvaSTATin [Lipitor] 10 mg PO BEDTIME 06/10/20 [History] Acetaminophen [Tylenol] 650 mg PO Q4H PRN tablet 06/12/20 [Rx] Docusate Sodium/Sennosides [Senna Plus] 1 tab PO BID PRN tablet 06/12/20 [Rx] Potassium Chloride 40 meq PO BID 10/05/20 [History] metOLazone [Metolazone] 5 mg PO DAILY 10/05/20 [History] tiZANidine [Zanaflex] 4 mg PO Q6H PRN 10/05/20 [History] DULoxetine [Cymbalta] 60 mg PO DAILY 07/22/21 [History] Past Medical History HEENT History: Reports: Other (See Below) Other HEENT History: esophageal varices Cardiovascular History: Reports: Afib, Heart Failure, [place] Gastrointestinal History: Reports: Other (See Below) Other Gastrointestinal History: esophageal varices (one banded on 06/10/2020) Genitourinary History: Reports: Urinary Incontinence Psychiatric History: Reports: Addiction, Other (See Below) Other Psychiatric History: past ETOH addiction. states has not drank for 2.5 months Endocrine/Metabolic History: Reports: Diabetes, Type II, Obesity/BMI 30+ Hematologic History: Reports: Anticoagulation Therapy - Infectious Disease History Infectious Disease History: Reports: Chicken Pox - Past Surgical History GI Surgical History: Reports: Cholecystectomy Social & Family History - Family History Family Medical History: Unobtainable - Tobacco Use Tobacco Use Status *Q: Never Tobacco User - Caffeine Use Caffeine Use: Reports: Soda Caffeine Use Comment: unable to obtain - Recreational Drug Use Recreational Drug Use: No ED ROS GENERAL - Review of Systems Review Of Systems: See Below Constitutional: Reports: Malaise, Weakness, Fatigue, Decreased Appetite HEENT: Reports: No Symptoms Respiratory: Reports: Shortness of Breath (Patient is chronically short of breath but he is noted to be intermittently hypoxic in the ED on room air.) Cardiovascular: Reports: Orthopnea Endocrine: Reports: Fatigue, High Glucose GI/Abdominal: Reports: Decreased Appetite : Reports: Other (Very concentrated urine) Musculoskeletal: Reports: Muscle Pain (Generalized muscle pain) Skin: Reports: Wound (Multiple wounds on both feet), Lesions (Lesions and erythema in the scrotum and perineal area from chronic pressure in the wheelchair, grade 1 decubiti) Neurological: Reports: Confusion, Other (Patient is sleeping much more than usual) Psychiatric: Reports: Confusion Hematologic/Lymphatic: Reports: No Symptoms Immunologic: Reports: No Symptoms ED EXAM, GENERAL - Physical Exam Exam: See Below Exam Limited By: Physical Impairment General Appearance: Lethargic, Mild Distress, Obese (Morbidly obese) Eye Exam: Bilateral Eye: EOMI, PERRL Throat/Mouth: Normal Oropharynx, Normal Voice, No Airway Compromise Head: Atraumatic, Normocephalic Neck: Normal Inspection, Supple Respiratory/Chest: No Respiratory Distress, Lungs Clear, No Accessory Muscle Use, Decreased Breath Sounds (Bibasilar diminished breath sounds). No: Crackles, Rales, Rhonchi, Wheezing Cardiovascular: Normal Peripheral Pulses, No Murmur, Irregularly Irregular (History of chronic atrial fibrillation ventricular rate is between 60 and 90 bpm) Peripheral Pulses: 2+: Radial (L), Radial (R) GI/Abdominal: Soft, Non-Tender, Abnormal Bowel Sounds (Diminished bowel sounds) (Male) Exam: Other (Grade 1 decubiti involving the scrotum and perineal area) Extremities: Pedal Edema (1-2+ bilateral lower extremity edema), Other (Chronic venous stasis dermatitis both lower extremities below the knees.) Neurological: Alert, Oriented, Normal Cognition, Sensory/Motor Deficit (Significant light touch sensation loss in both lower extremities due to peripheral neuropathy.) Psychiatric: Flat Affect Skin Exam: Wound/Incision (Several lesions on both feet from previous blistering. Erythema of both feet and edema. Venous stasis dermatitis of both lower extremities from the knees down.) Course - Vital Signs Last Recorded V/S: Last Vital Signs Temp 36.2 C 07/22/21 20:49 Pulse 82 07/23/21 00:30 Resp 10 L 07/23/21 00:30 BP 100/65 07/23/21 00:30 Pulse Ox 95 07/23/21 00:30 - Orders/Labs/Meds Orders: Active Orders 24 hr Category Date Time Status Blood Glucose Check, Bedside [RC] Q4HR Care 07/22/21 21:43 Active Blood Pressure Mgt: Sepsis [RC] [id number] Care 07/22/21 21:41 Active Chest 1V Frontal [CR] Stat Exams 07/22/21 20:34 Taken CULTURE BLOOD [BC] Urgent Lab 07/22/21 21:45 Received CULTURE BLOOD [BC] Urgent Lab 07/22/21 21:55 Received CULTURE URINE [RM] Stat Lab 07/23/21 00:36 Received Norepinephrine [Levophed] 4 mg Med 07/22/21 22:00 Active Dextrose 5% in Water 246 ml IV TITRATE Sodium Chloride 0.9% [Normal Saline] 1,000 ml Med 07/22/21 21:45 Active IV ASDIRECTED Sodium Chloride 0.9% [Normal Saline] 1,000 ml Med 07/23/21 00:15 Active IV ASDIRECTED Sodium Chloride 0.9% [Normal Saline] 1,000 ml Med 07/23/21 01:30 Active IV ASDIRECTED Sodium Chloride 0.9% [Saline Flush] Med 07/22/21 20:34 Active 10 ml FLUSH ASDIRECTED PRN Blood Culture x2 Reflex Set [OM.PC] Urgent Oth 07/22/21 21:40 Ordered Isolation [COMM] Stat Oth 07/22/21 20:35 Ordered Saline Lock Insert [OM.PC] Routine Oth 07/22/21 20:34 Ordered Severe Sepsis Onset Time [OM.PC] Stat Oth 07/22/21 21:40 Ordered Medication Orders Sodium Chloride (Normal Saline) 1,000 mls @ 999 mls/hr IV ASDIRECTED JENISE Last Admin: 07/22/21 21:52 Dose: 999 mls/hr Documented by: BOB Norepinephrine Bitartrate 4 mg (/ Dextrose/Water) 250 mls @ 7.5 mls/hr IV TITRATE JENISE; Protocol Last Admin: 07/22/21 22:45 Dose: 2 mcg/min, 7.5 mls/hr Documented by: BOB Sodium Chloride (Normal Saline) 1,000 mls @ 999 mls/hr IV ASDIRECTED JENISE Last Admin: 07/23/21 00:08 Dose: 999 mls/hr Documented by: BOB Sodium Chloride (Normal Saline) 1,000 mls @ 999 mls/hr IV ASDIRECTED JENISE Last Admin: 07/23/21 01:00 Dose: 999 mls/hr Documented by: BOB Sodium Chloride (Sodium Chloride 0.9% 10 Ml Syringe) 10 ml FLUSH ASDIRECTED PRN PRN Reason: Keep Vein Open Last Admin: 07/22/21 21:28 Dose: 10 ml Documented by: BOB Labs: Laboratory Tests 07/22/21 07/22/21 07/22/21 Range/Units 20:45 20:48 20:50 WBC 7.6 (4.5-11.0) K/uL RBC 4.96 (4.30-5.90) M/uL Hgb 14.1 (12.0-15.0) g/dL Hct 43.9 (40.0-54.0) % MCV 89 (80-98) fL MCH 28 (27-31) pg MCHC 32 (32-36) % Plt Count 236 (150-400) K/uL Neut % (Auto) 63.2 (36-66) % Lymph % (Auto) 22.0 L (24-44) % Davis % (Auto) 12.0 H (2-6) % Eos % (Auto) 1.6 L (2-4) % Baso % (Auto) 1.2 H (0-1) % D-Dimer, Quantitative 964.66 H (0.0-500.0) ng/mL ABG Hemoglobin (13.5-18.0) g/dL ABG Oxyhemoglobin % ABG Carboxyhemoglobin (0.0-1.6) % ABG Methemoglobin % VBG pH (7.350-7.450) VBG pCO2 mm/Hg VBG pO2 mm/Hg VBG HCO3 mmol/L VBG Total CO2 mmol/L VBG O2 Saturation VBG O2 Content %vol VBG Base Excess mm/L O2 Delivery Device Sodium (140-148) mmol/L Potassium (3.6-5.2) mmol/L Chloride (100-108) mmol/L Carbon Dioxide (21-32) mmol/L Anion Gap (5.0-14.0) mmol/L BUN (7-18) mg/dL Creatinine (0.8-1.3) mg/dL Est Cr Clr Drug Dosing mL/min Estimated GFR (MDRD) (>60) Glucose (74-106) mg/dL POC Glucose (74-106) mg/dL Lactic Acid (0.4-2.0) mmol/L Calcium (8.5-10.1) mg/dL Ferritin (8-388) ng/ml Total Bilirubin (0.2-1.0) mg/dL AST (15-37) U/L ALT (12-78) U/L Alkaline Phosphatase (46-116) U/L Lactate Dehydrogenase (85-227) U/L Troponin I High Sens (<=60.3) pg/mL Total Protein (6.4-8.2) g/dL Albumin (3.4-5.0) g/dL Globulin (2.3-3.5) g/dL Albumin/Globulin Ratio (1.2-2.2) Procalcitonin ng/mL Urine Color (YELLOW) Urine Appearance (CLEAR) Urine pH (5.0-8.0) Ur Specific Welcome (1.008-1.030) Urine Protein (NEGATIVE) mg/dL Urine Glucose (UA) (NEGATIVE) mg/dL Urine Ketones (NEGATIVE) mg/dL Urine Occult Blood (NEGATIVE) Urine Nitrite (NEGATIVE) Urine Bilirubin (NEGATIVE) Urine Urobilinogen (0.2-1.0) EU/dL Ur Leukocyte Esterase (NEGATIVE) Urine RBC (0-5) Urine WBC (0-5) Ur Epithelial Cells Amorphous Sediment Urine Bacteria Urine Mucus Ketones (NEGATIVE) Influenza Type A RNA Negative (NEGATIVE) RSV RNA (INAAT) Negative (NEGATIVE) Influenza Type B RNA Negative (NEGATIVE) SARS-CoV-2 RNA (ASA) Negative (NEGATIVE) 07/22/21 07/22/21 07/22/21 Range/Units 20:50 20:50 20:50 WBC (4.5-11.0) K/uL RBC (4.30-5.90) M/uL Hgb (12.0-15.0) g/dL Hct (40.0-54.0) % MCV (80-98) fL MCH (27-31) pg MCHC (32-36) % Plt Count (150-400) K/uL Neut % (Auto) (36-66) % Lymph % (Auto) (24-44) % Davis % (Auto) (2-6) % Eos % (Auto) (2-4) % Baso % (Auto) (0-1) % D-Dimer, Quantitative (0.0-500.0) ng/mL ABG Hemoglobin (13.5-18.0) g/dL ABG Oxyhemoglobin % ABG Carboxyhemoglobin (0.0-1.6) % ABG Methemoglobin % VBG pH (7.350-7.450) VBG pCO2 mm/Hg VBG pO2 mm/Hg VBG HCO3 mmol/L VBG Total CO2 mmol/L VBG O2 Saturation VBG O2 Content %vol VBG Base Excess mm/L O2 Delivery Device Sodium 136 L (140-148) mmol/L Potassium 4.0 (3.6-5.2) mmol/L Chloride 97 L (100-108) mmol/L Carbon Dioxide 26 (21-32) mmol/L Anion Gap 17.0 H (5.0-14.0) mmol/L BUN 24 H D (7-18) mg/dL Creatinine 2.6 H D (0.8-1.3) mg/dL Est Cr Clr Drug Dosing 26.13 mL/min Estimated GFR (MDRD) 25 L (>60) Glucose 281 H (74-106) mg/dL POC Glucose (74-106) mg/dL Lactic Acid 4.2 H (0.4-2.0) mmol/L Calcium 8.2 L (8.5-10.1) mg/dL Ferritin 309 (8-388) ng/ml Total Bilirubin 0.8 D (0.2-1.0) mg/dL AST 37 (15-37) U/L ALT 29 (12-78) U/L Alkaline Phosphatase 168 H (46-116) U/L Lactate Dehydrogenase 154 (85-227) U/L Troponin I High Sens < 4.0 (<=60.3) pg/mL Total Protein 7.2 (6.4-8.2) g/dL Albumin 2.4 L (3.4-5.0) g/dL Globulin 4.8 H (2.3-3.5) g/dL Albumin/Globulin Ratio 0.5 L (1.2-2.2) Procalcitonin 1.26 ng/mL Urine Color (YELLOW) Urine Appearance (CLEAR) Urine pH (5.0-8.0) Ur Specific Welcome (1.008-1.030) Urine Protein (NEGATIVE) mg/dL Urine Glucose (UA) (NEGATIVE) mg/dL Urine Ketones (NEGATIVE) mg/dL Urine Occult Blood (NEGATIVE) Urine Nitrite (NEGATIVE) Urine Bilirubin (NEGATIVE) Urine Urobilinogen (0.2-1.0) EU/dL Ur Leukocyte Esterase (NEGATIVE) Urine RBC (0-5) Urine WBC (0-5) Ur Epithelial Cells Amorphous Sediment Urine Bacteria Urine Mucus Ketones (NEGATIVE) Influenza Type A RNA (NEGATIVE) RSV RNA (INAAT) (NEGATIVE) Influenza Type B RNA (NEGATIVE) SARS-CoV-2 RNA (ASA) (NEGATIVE) 07/22/21 07/22/21 07/22/21 Range/Units 20:50 20:50 23:10 WBC (4.5-11.0) K/uL RBC (4.30-5.90) M/uL Hgb (12.0-15.0) g/dL Hct (40.0-54.0) % MCV (80-98) fL MCH (27-31) pg MCHC (32-36) % Plt Count (150-400) K/uL Neut % (Auto) (36-66) % Lymph % (Auto) (24-44) % Davis % (Auto) (2-6) % Eos % (Auto) (2-4) % Baso % (Auto) (0-1) % D-Dimer, Quantitative (0.0-500.0) ng/mL ABG Hemoglobin 14.5 (13.5-18.0) g/dL ABG Oxyhemoglobin 34.6 % ABG Carboxyhemoglobin 2.0 H (0.0-1.6) % ABG Methemoglobin 0.8 % VBG pH 7.343 L (7.350-7.450) VBG pCO2 50.0 mm/Hg VBG pO2 22.9 mm/Hg VBG HCO3 26.4 mmol/L VBG Total CO2 23.9 mmol/L VBG O2 Saturation 35.6 VBG O2 Content 7.0 %vol VBG Base Excess 0.5 mm/L O2 Delivery Device Room air Sodium (140-148) mmol/L Potassium (3.6-5.2) mmol/L Chloride (100-108) mmol/L Carbon Dioxide (21-32) mmol/L Anion Gap (5.0-14.0) mmol/L BUN (7-18) mg/dL Creatinine (0.8-1.3) mg/dL Est Cr Clr Drug Dosing mL/min Estimated GFR (MDRD) (>60) Glucose (74-106) mg/dL POC Glucose 173 H (74-106) mg/dL Lactic Acid (0.4-2.0) mmol/L Calcium (8.5-10.1) mg/dL Ferritin (8-388) ng/ml Total Bilirubin (0.2-1.0) mg/dL AST (15-37) U/L ALT (12-78) U/L Alkaline Phosphatase (46-116) U/L Lactate Dehydrogenase (85-227) U/L Troponin I High Sens (<=60.3) pg/mL Total Protein (6.4-8.2) g/dL Albumin (3.4-5.0) g/dL Globulin (2.3-3.5) g/dL Albumin/Globulin Ratio (1.2-2.2) Procalcitonin ng/mL Urine Color (YELLOW) Urine Appearance (CLEAR) Urine pH (5.0-8.0) Ur Specific Welcome (1.008-1.030) Urine Protein (NEGATIVE) mg/dL Urine Glucose (UA) (NEGATIVE) mg/dL Urine Ketones (NEGATIVE) mg/dL Urine Occult Blood (NEGATIVE) Urine Nitrite (NEGATIVE) Urine Bilirubin (NEGATIVE) Urine Urobilinogen (0.2-1.0) EU/dL Ur Leukocyte Esterase (NEGATIVE) Urine RBC (0-5) Urine WBC (0-5) Ur Epithelial Cells Amorphous Sediment Urine Bacteria Urine Mucus Ketones Negative (NEGATIVE) Influenza Type A RNA (NEGATIVE) RSV RNA (INAAT) (NEGATIVE) Influenza Type B RNA (NEGATIVE) SARS-CoV-2 RNA (ASA) (NEGATIVE) 07/23/21 07/23/21 Range/Units 00:36 01:10 WBC (4.5-11.0) K/uL RBC (4.30-5.90) M/uL Hgb (12.0-15.0) g/dL Hct (40.0-54.0) % MCV (80-98) fL MCH (27-31) pg MCHC (32-36) % Plt Count (150-400) K/uL Neut % (Auto) (36-66) % Lymph % (Auto) (24-44) % Davis % (Auto) (2-6) % Eos % (Auto) (2-4) % Baso % (Auto) (0-1) % D-Dimer, Quantitative (0.0-500.0) ng/mL ABG Hemoglobin (13.5-18.0) g/dL ABG Oxyhemoglobin % ABG Carboxyhemoglobin (0.0-1.6) % ABG Methemoglobin % VBG pH (7.350-7.450) VBG pCO2 mm/Hg VBG pO2 mm/Hg VBG HCO3 mmol/L VBG Total CO2 mmol/L VBG O2 Saturation VBG O2 Content %vol VBG Base Excess mm/L O2 Delivery Device Sodium (140-148) mmol/L Potassium (3.6-5.2) mmol/L Chloride (100-108) mmol/L Carbon Dioxide (21-32) mmol/L Anion Gap (5.0-14.0) mmol/L BUN (7-18) mg/dL Creatinine (0.8-1.3) mg/dL Est Cr Clr Drug Dosing mL/min Estimated GFR (MDRD) (>60) Glucose (74-106) mg/dL POC Glucose (74-106) mg/dL Lactic Acid 1.9 (0.4-2.0) mmol/L Calcium (8.5-10.1) mg/dL Ferritin (8-388) ng/ml Total Bilirubin (0.2-1.0) mg/dL AST (15-37) U/L ALT (12-78) U/L Alkaline Phosphatase (46-116) U/L Lactate Dehydrogenase (85-227) U/L Troponin I High Sens (<=60.3) pg/mL Total Protein (6.4-8.2) g/dL Albumin (3.4-5.0) g/dL Globulin (2.3-3.5) g/dL Albumin/Globulin Ratio (1.2-2.2) Procalcitonin ng/mL Urine Color Yellow (YELLOW) Urine Appearance Cloudy A (CLEAR) Urine pH 5.5 (5.0-8.0) Ur Specific Welcome >= 1.030 (1.008-1.030) Urine Protein >=300 H (NEGATIVE) mg/dL Urine Glucose (UA) Negative (NEGATIVE) mg/dL Urine Ketones Negative (NEGATIVE) mg/dL Urine Occult Blood Moderate H (NEGATIVE) Urine Nitrite Negative (NEGATIVE) Urine Bilirubin Small H (NEGATIVE) Urine Urobilinogen 4.0 H (0.2-1.0) EU/dL Ur Leukocyte Esterase Large H (NEGATIVE) Urine RBC 0-5 (0-5) Urine WBC >100 H (0-5) Ur Epithelial Cells Rare Amorphous Sediment Not seen Urine Bacteria Many Urine Mucus Not seen Ketones (NEGATIVE) Influenza Type A RNA (NEGATIVE) RSV RNA (INAAT) (NEGATIVE) Influenza Type B RNA (NEGATIVE) SARS-CoV-2 RNA (ASA) (NEGATIVE) Meds: Medications Generic Name Dose Route Start Last Admin Trade Name Freq PRN Reason Stop Dose Admin Sodium Chloride 1,000 mls @ 999 mls/hr 07/22/21 21:45 07/22/21 21:52 Normal Saline IV 999 mls/hr ASDIRECTED JENISE Administration Norepinephrine Bitartrate 4 mg 250 mls @ 7.5 mls/hr 07/22/21 22:00 07/22/21 22:45 / Dextrose/Water IV 2 mcg/min TITRATE JENISE 7.5 mls/hr Administration Protocol 2 MCG/MIN Sodium Chloride 1,000 mls @ 999 mls/hr 07/23/21 00:15 07/23/21 00:08 Normal Saline IV 999 mls/hr ASDIRECTED JENISE Administration Sodium Chloride 1,000 mls @ 999 mls/hr 07/23/21 01:30 07/23/21 01:00 Normal Saline IV 999 mls/hr ASDIRECTED JENISE Administration Sodium Chloride 10 ml 07/22/21 20:34 07/22/21 21:28 Sodium Chloride 0.9% 10 Ml Syringe FLUSH 10 ml ASDIRECTED PRN Administration Keep Vein Open Discontinued Medications Generic Name Dose Route Start Last Admin Trade Name Freq PRN Reason Stop Dose Admin Lactated Ringer's 1,000 mls @ 999 mls/hr 07/22/21 21:45 Ringers, Lactated IV ASDIRECTED JENISE Ceftriaxone Sodium 2 gm/ 50 mls @ 100 mls/hr 07/22/21 21:40 07/22/21 21:46 Sodium Chloride IV 07/22/21 22:09 100 mls/hr STAT ONE Administration Vancomycin HCl 1.5 gm/ Sodium 250 mls @ 167 mls/hr 07/22/21 21:40 07/22/21 22:46 Chloride IV 07/22/21 23:09 167 mls/hr STAT ONE Administration Insulin Human Regular 6 unit 07/22/21 21:40 07/22/21 22:15 Insulin Regular, Human 100 Units/Ml 3 Ml Vial IVPUSH 07/22/21 21:41 6 units ONETIME ONE Administration - Radiology Interpretation Free Text/Narrative:: I reviewed the one-view portable chest x-ray on the patient and compared it to his previous on 10 June 2020. There is increased haziness in the right base that was not previously seen suggestive for a pneumonia. - Re-Assessments/Exams Free Text/Narrative Re-Assessment/Exam: 07/22/21 22:08 I reviewed the patient's labs showing a normal leukocyte count of 7.6, hemoglobin of 14.1 and platelet count of 236,000. His comprehensive metabolic panel shows a sodium 136, potassium 4.0, chloride of 97 with a bicarbonate of 26, BUN of 24 with a creatinine of 2.6 and a calculated GFR of 25 indicating acute kidney failure stage IV and a glucose of 281. The AST is normal at 37, ALT is 28, alkaline phosphatase is 168, calcium is 8.2. The patient is negative for Covid, RSV, and influenza. A venous blood gas was obtained and shows a pH of 7.34, PCO2 venous of 50, PO2 venous of 22.9, and a bicarbonate of 26.4. D-dimer is elevated at 964, however, we are named able to do a CT angiogram because of the patient's poor kidney function with the GFR of 25. The venous lactate is elevated at 4.2. The patient's ketone negative. His high-sensitivity troponin is less than 4.0 which is normal. His pro calcitonin is elevated at 1.26. Given the big picture and the patient's hemodynamic instability, this is pointing strongly towards being septic. I suspect that his primary source is cellulitis even his multiple leg lesions and perineal lesions. He could also have urinary involvement and pneumonia. We initiated sepsis protocol with infusion of IV normal saline at a bolus of 30 mL/kg and initiation of antibiotics with vancomycin 1500 mg IV and ceftriaxone 2 g IV. Blood cultures had been obtained prior to the initiation of antibiotics. Unfortunately, the patient does not produce any urine for us to check urinalysis or do a urine culture. The patient's pressures have been fluctuating between the mid 80s systolic and low 100s. I have initiated Levophed therapy if he continues to drop. In the current state, the patient certainly needs to be admitted. We have no beds available here so I reached out to [facility]. The patient is full code. 07/23/21 00:00 I discussed the case with Dr. Koch, hospitalist at [facility] who agrees to accept the patient in transfer if we can wean the patient off of the Levophed while he remains vitally stable, check a urinalysis and bladder scan to make sure he is not obstructive, and recheck the lactate after the fluid bolus. If the patient is unable to be weaned off the Levophed we will have to talk to the stock driver if there is an ICU bed available for the patient. 07/23/21 02:04 Alysis shows sujit pyuria with greater than 100 WBCs and positive leukocyte Estrace. It is nitrite negative. There is 0-5 red cells. The venous lactate performed after the infusion of 2 L of normal saline shows a drop from 4.2-1.9. We are still in the process of weaning the patient off of Levophed as he is down to 1 jonny at this time. His pressures appear to be holding at 112/79. 07/23/21 02:29 the patient is off of the Levophed at this time and his pressures are holding 106/64. I discussed the case with Irina, phone referral nurse at [facility] who accepts the patient on Dr. Koch's behalf for transfer to the MedSurg unit at [facility]. We will arrange for transport of the patient there. It does appear that he is uroseptic. Urine culture is pending. Blood cultures are pending. Departure - Departure Time of Disposition: 03:26 Disposition: DC/Tfer to Acute Hospital 02 Clinical Impression: Sepsis associated hypotension, Morbid obesity with BMI of 50.0-59.9, adult, On Coumadin for atrial fibrillation, CHF, Congestive heart failure, Diabetic peripheral neuropathy associated with type 2 diabetes mellitus, Peripheral vascular disease due to secondary diabetes mellitus Cellulitis Qualifiers: Site of cellulitis: extremity Site of cellulitis of extremity: lower extremity Laterality: unspecified laterality Qualified Code(s): L03.119 - Cellulitis of unspecified part of limb Right lower lobe pneumonia Qualifiers: Pneumonia type: due to unspecified organism Qualified Code(s): J18.9 - Pneumonia, unspecified organism Hyperglycemia due to type 2 diabetes mellitus Qualifiers: Diabetes mellitus correction insulin use: without correction use Qualified Code(s): E11.65 - Type 2 diabetes mellitus with hyperglycemia Atrial fibrillation Qualifiers: Atrial fibrillation type: permanent Qualified Code(s): I48.21 - Permanent atrial fibrillation Type 2 diabetes mellitus Qualifiers: 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 insulin use: without correction use Diabetes karol itus complication status: with hyperglycemia Qualified Code(s): E11.65 - Type 2 diabetes mellitus with hyperglycemia Acute kidney failure Qualifiers: Acute renal failure type: unspecified Qualified Code(s): N17.9 - Acute kidney failure, unspecified Urinary tract infection Qualifiers: Urinary tract infection type: acute cystitis Hematuria presence: without hematuria Qualified Code(s): N30.00 - Acute cystitis without hematuria - Discharge Information Referrals: Warren Clinton, MAT[employer] HAND[employer] LOADER [Primary Care Provider] - Forms: ED Department Discharge Critical Care Note - Critical Care Note Total Time (mins): 60 Comments: Critical care time of 60 minutes to manage this complex patient including review of his medical records, review of labs and imaging, and therapeutic management. This excludes procedures. Sepsis Event Note (ED) - Evaluation Sepsis Screening Result: No Definite Risk Current Stage of Sepsis: Sepsis Possible Source of Sepsis: Skin/Soft Tissue - Focused Exam Sepsis Event Note Statement: Focused Sepsis Exam Completed Vital Signs: Vital Signs Temp Pulse Resp BP Pulse Ox 07/23/21 00:30 82 10 L 100/65 95 07/23/21 00:05 87 11 L 117/70 94 L 07/22/21 23:15 89 10 L 131/87 95 07/22/21 23:00 127/84 07/22/21 22:45 88 12 99/66 95 12/18/21 22:00 91 101/78 07/22/21 21:30 92 12 89/58 L 93 L 07/22/21 21:00 93 13 93/69 97 07/22/21 20:49 36.2 C 89 10 L 107/65 96 07/22/21 20:34 36.2 C 89 10 L 107/65 96 Heart Sounds: Irregular Capillary Refill, Detail: Greater than (>) 2 Seconds Pulse Description: 1+ Thready Peripheral Pulse Location: Radial Date Exam was Performed: 07/22/21 Time Exam was Performed: 21:40 - Bedside Monitoring Passive Leg Raise/Fluid Bolus: Fluid Responsive Date Bedside Monitoring was Performed: 07/23/21 Time Bedside Monitoring was Performed: 02:14 (A beneficial effect with a fluid bolus, however, his pressures continue to still drop and Levophed was initiated.) - Problem List & Annotations (1) Sepsis associated hypotension SNOMED Code(s): 77556444 Code(s): A41.9 - SEPSIS, UNSPECIFIED ORGANISM; I95.9 - HYPOTENSION, UNSPECIFIED Status: Acute Priority: High Current Visit: Yes (2) Cellulitis SNOMED Code(s): 507510526 Code(s): L03.90 - CELLULITIS, UNSPECIFIED Status: Acute Priority: High Current Visit: Yes Qualifiers: Site of cellulitis: extremity Site of cellulitis of extremity: lower extremity Laterality: unspecified laterality Qualified Code(s): L03.119 - Cellulitis of unspecified part of limb (3) Right lower lobe pneumonia SNOMED Code(s): 976114429 Code(s): J18.9 - PNEUMONIA, UNSPECIFIED ORGANISM Status: Acute Priority: High Current Visit: Yes Qualifiers: Pneumonia type: due to unspecified organism Qualified Code(s): J18.9 - Pneumonia, unspecified organism (4) Hyperglycemia due to type 2 diabetes mellitus SNOMED Code(s): 760817979730056, 458199413296836 Code(s): E11.65 - TYPE 2 DIABETES MELLITUS WITH HYPERGLYCEMIA Status: Chronic Priority: High Current Visit: Yes Qualifiers: 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 insulin use: without vermin exterminator use Qualified Code(s): E11.65 - Type 2 diabetes mellitus with hyperglycemia (5) Atrial fibrillation SNOMED Code(s): 42925647 Code(s): I48.91 - UNSPECIFIED ATRIAL FIBRILLATION Status: Chronic Priority: Medium Current Visit: Yes Qualifiers: Atrial fibrillation type: permanent Qualified Code(s): I48.21 - Permanent atrial fibrillation (6) Morbid obesity with BMI of 50.0-59.9, adult SNOMED Code(s): 727241026, 72051627137803 Code(s): E66.01 - MORBID (SEVERE) OBESITY DUE TO EXCESS CALORIES; Z68.43 - BODY MASS INDEX [BMI] 50.0-59.9, ADULT Status: Chronic Priority: Medium Current Visit: Yes (7) Type 2 diabetes mellitus SNOMED Code(s): 78996222 Code(s): E11.9 - TYPE 2 DIABETES MELLITUS WITHOUT COMPLICATIONS Status: Chronic Priority: Medium Current Visit: Yes Qualifiers: 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 insulin use: without correction use Diabetes mellitus complication status: with hyperglycemia Qualified Code(s): E11.65 - Type 2 diabetes mellitus with hyperglycemia (8) Diabetic peripheral neuropathy associated with type 2 diabetes mellitus SNOMED Code(s): 3546396818045, 1765607087468 Code(s): E11.42 - TYPE 2 DIABETES MELLITUS WITH DIABETIC POLYNEUROPATHY Status: Chronic Priority: Medium Current Visit: Yes (9) Peripheral vascular disease due to secondary diabetes mellitus SNOMED Code(s): 912282764, 875384045 Code(s): E13.51 - OTH DIABETES W DIABETIC PERIPHERAL ANGIOPATHY W/O GANGRENE Status: Chronic Priority: Medium Current Visit: Yes (10) Acute kidney failure SNOMED Code(s): 74423485 Code(s): N17.9 - ACUTE KIDNEY FAILURE, UNSPECIFIED Status: Acute Priority: High Current Visit: Yes (11) Urinary tract infection SNOMED Code(s): 66544036 Code(s): N39.0 - URINARY TRACT INFECTION, SITE NOT SPECIFIED Status: Acute Priority: High Current Visit: Yes Qualifiers: Urinary tract infection type: acute cystitis Hematuria presence: without hematuria Qualified Code(s): N30.00 - Acute cystitis without hematuria - Problem List Review Problem List Initiated/Reviewed/Updated: Yes - My Orders Last 24 Hours: My Active Orders 07/22/21 20:34 Chest 1V Frontal [CR] Stat Sodium Chloride 0.9% [Saline Flush] 10 ml FLUSH ASDIRECTED PRN Saline Lock Insert [OM.PC] Routine 07/22/21 20:35 Isolation [COMM] Stat 07/22/21 21:40 Blood Culture x2 Reflex Set [OM.PC] Urgent Severe Sepsis Onset Time [OM.PC] Stat 07/22/21 21:41 Blood Pressure Mgt: Sepsis [RC] Q15MX2 07/22/21 21:43 Blood Glucose Check, Bedside [RC] Q4HR 07/22/21 21:45 CULTURE BLOOD [BC] Urgent Sodium Chloride 0.9% [Normal Saline] 1,000 ml IV ASDIRECTED 07/22/21 21:55 CULTURE BLOOD [BC] Urgent 07/22/21 22:00 Norepinephrine [Levophed] 4 mg Dextrose 5% in Water 246 ml IV TITRATE 07/23/21 00:15 Sodium Chloride 0.9% [Normal Saline] 1,000 ml IV ASDIRECTED 07/23/21 00:36 CULTURE URINE [RM] Stat 07/23/21 01:30 Sodium Chloride 0.9% [Normal Saline] 1,000 ml IV ASDIRECTED - Assessment/Plan Last 24 Hours: My Active Orders 07/22/21 20:34 Chest 1V Frontal [CR] Stat Sodium Chloride 0.9% [Saline Flush] 10 ml FLUSH ASDIRECTED PRN Saline Lock Insert [OM.PC] Routine 07/22/21 20:35 Isolation [COMM] Stat 07/22/21 21:40 Blood Culture x2 Reflex Set [OM.PC] Urgent Severe Sepsis Onset Time [OM.PC] Stat 07/22/21 21:41 Blood Pressure Mgt: Sepsis [RC] Q15MX2 07/22/21 21:43 Blood Glucose Check, Bedside [RC] Q4HR 07/22/21 21:45 CULTURE BLOOD [BC] Urgent Sodium Chloride 0.9% [Normal Saline] 1,000 ml IV ASDIRECTED 07/22/21 21:55 CULTURE BLOOD [BC] Urgent 07/22/21 22:00 Norepinephrine [Levophed] 4 mg Dextrose 5% in Water 246 ml IV TITRATE 07/23/21 00:15 Sodium Chloride 0.9% [Normal Saline] 1,000 ml IV ASDIRECTED 07/23/21 00:36 CULTURE URINE [RM] Stat 07/23/21 01:30 Sodium Chloride 0.9% [Normal Saline] 1,000 ml IV ASDIRECTED
[2021-07-22 21:20] LABS: CORONAVIRUS COVID-19 NAA NEGATIVE (NEGATIVE)
[2021-07-22] MEDS ORDERED: cefTRIAXone 2 GM in Sodium Chloride 0.9% 50 ML IV ONE (21:40)
[2021-07-22] MEDS ORDERED: Insulin Regular, Human 100 Units/ML 3 ML Vial IVPUSH ONE (21:40)
[2021-07-22] MEDS ORDERED: Sodium Chloride 0.9% 1,000 ML IV SCH (21:45)
[2021-07-22] MEDS ORDERED: Lactated Ringers 1,000 ML IV SCH (21:45)
[2021-07-22] MEDS ORDERED: Norepinephrine 4 MG in Dextrose 5% in Water 246 ML IV SCH ×2 (22:00)
[2021-07-23] MEDS ORDERED: Sodium Chloride 0.9% 1,000 ML IV SCH ×3 (00:15→02:45)
--- NOTE | 2021-07-24 10:49 | CR ---
CHEST: Portable 07/22/2021 at 9:04 PM CLINICAL HISTORY:Feeling ill COMPARISON:06/10/2020 FINDINGS: There is less than optimal inspiration. Heart is enlarged. Pulmonary vascular areas normal. No infiltrate effusion or pneumothorax is seen.. Impression: Mild cardiac megaly Less than optimal inspiration No definite infiltrates are seen. If clinical symptomatology persists or worsens a repeat exam is recommended.
== END 2021-07-23 06:30 ==
LOC: JP.ED 20:16
DX: A41.9 Sepsis, unspecified organism (principal); J18.9 Pneumonia, unspecified organism; N30.00 Acute cystitis without hematuria; L03.115 Cellulitis of right lower limb; L03.116 Cellulitis of left lower limb; I95.9 Hypotension, unspecified; E11.65 Type 2 diabetes mellitus with hyperglycemia; E11.42 Type 2 diabetes mellitus with diabetic polyneuropathy; I48.21 Permanent atrial fibrillation; I50.9 Heart failure, unspecified; E11.51 Type 2 diabetes mellitus with diabetic peripheral angiopathy without gangrene; N17.9 Acute kidney failure, unspecified; I25.2 Old myocardial infarction; E66.01 Morbid (severe) obesity due to excess calories; Z68.43 Body mass index [BMI] 50.0-59.9, adult; Z88.8 Allergy status to other drugs, medicaments and biological substances; Z79.84 Long term (current) use of oral hypoglycemic drugs; Z79.899 Other long term (current) drug therapy
CPT/HCPCS: 0241U; 36415; 71045; 80053; 81001; 82009; 82728; 82803; 82947; 83605; 83615; 84145; 84484; 85025; 85379; 87040; 87086; 96365; 96366; 96367; 99285; J0696; J1815; J3370; J7030; J7050; J7060

== ENCOUNTER 2021-09-20 21:47 | Emergency (ER) | payer MEDICARE, MEDICAID ==
[2021-09-20] MEDS ORDERED: Diltiazem 25 MG/5 ML SDV IVPUSH ONE (22:06)
[2021-09-20] MEDS ORDERED: Levofloxacin/Dextrose 5%-Water 750 MG in Premix Bag 1 BAG IV SCH (22:15)
[2021-09-20] MEDS ORDERED: Lactated Ringers 1,000 ML IV SCH (22:15)
[2021-09-20] MEDS ORDERED: Diltiazem 100 MG in Sodium Chloride 0.9% 100 ML IV SCH (22:15)
[2021-09-20] MEDS ORDERED: Sodium Chloride 0.9% 10 ML Syringe FLUSH PRN (22:22)
[2021-09-20] MEDS ORDERED: Pantoprazole 40 MG Vial IVPUSH ONE (22:22)
[2021-09-20] MEDS ORDERED: Ondansetron 4 MG/2 ML SDV IVPUSH ONE (22:42)
[2021-09-20 23:02] LABS: CORONAVIRUS COVID-19 NAA NEGATIVE (NEGATIVE)
[2021-09-20] MEDS ORDERED: Metoprolol Succinate 50 MG Tab.ER PO ONE (23:24)
[2021-09-20] MEDS ORDERED: Amiodarone 200 MG Tab PO ONE (23:24)
[2021-09-21] MEDS ORDERED: Prochlorperazine 10 MG in Sodium Chloride 0.9% 50 ML IV ONE (01:58)
[2021-09-21] MEDS ORDERED: Prochlorperazine 10 MG/2 ML SDV IVPUSH ONE (02:03)
== END 2021-09-21 02:52 ==
LOC: JP.ED 21:47
DX: I48.91 Unspecified atrial fibrillation (principal); K62.5 Hemorrhage of anus and rectum; Z88.8 Allergy status to other drugs, medicaments and biological substances; I25.10 Atherosclerotic heart disease of native coronary artery without angina pectoris; I50.9 Heart failure, unspecified; I25.2 Old myocardial infarction; K21.9 Gastro-esophageal reflux disease without esophagitis; E11.9 Type 2 diabetes mellitus without complications; Z90.49 Acquired absence of other specified parts of digestive tract; Z79.84 Long term (current) use of oral hypoglycemic drugs; Z79.899 Other long term (current) drug therapy; Z20.822 Contact with and (suspected) exposure to COVID-19
CPT/HCPCS: 0241U; 36415; 71045; 80053; 80307; 83605; 83880; 84145; 84484; 85025; 85610; 86140; 87040; 93005; 96365; 96366; 96368; 96375; 99285; A9270; C9113; J0780; J1956; J2405; J3490; J7120; 93010

== ENCOUNTER 2022-01-19 22:19 | Inpatient (IN) | payer MEDICARE, MEDICAID ==
[2022-01-19] MEDS ORDERED: Sodium Chloride 0.9% 10 ML Syringe FLUSH PRN (22:25)
[2022-01-19] MEDS ORDERED: Lidocaine 2% Jelly 10 ML Urojet MUCMEM ONE (22:36)
[2022-01-19 22:57] LABS: ESTIMATED GFR 23 mL/min (>60)
[2022-01-19] MEDS ORDERED: Calcium Carbonate 500 MG Tab.Chew PO ONE (23:20)
[2022-01-19 23:42] LABS: CORONAVIRUS COVID-19 NAA NEGATIVE (NEGATIVE)
[2022-01-19] MEDS ORDERED: Levofloxacin 250 MG Tab PO ONE (23:58)
[2022-01-20] MEDS ORDERED: Ondansetron 4 MG Tab.DIS PO PRN (01:47)
[2022-01-20] MEDS ORDERED: Albuterol/Ipratropium 3.0-0.5 MG/3 ML Neb Soln NEB PRN (01:47)
[2022-01-20] MEDS ORDERED: oxyCODONE 5 MG Tab PO PRN (01:47)
[2022-01-20] MEDS ORDERED: Albuterol 0.083% 2.5 MG/3 ML Neb Soln NEB PRN (01:47)
[2022-01-20] MEDS ORDERED: Morphine 2 MG/ML SYRINGE IVPUSH PRN (01:47)
[2022-01-20] MEDS ORDERED: Acetaminophen 325 MG Tab PO PRN (01:47)
[2022-01-20] MEDS ORDERED: Furosemide 40 MG/4 ML VIAL IVPUSH ONE (01:55)
[2022-01-20] MEDS ORDERED: hydrALAZINE 25 MG Tab PO SCH (02:15)
[2022-01-20] MEDS ORDERED: Glucagon,Human Recombinant 1 MG Vial IM PRN (02:21)
[2022-01-20] MEDS ORDERED: Insulin Regular, Human 100 Units/ML 3 ML Vial SUBCUT ONE (02:21)
[2022-01-20] MEDS ORDERED: 50% Dextrose in Water 50 ML Syringe IVPUSH PRN (02:21)
[2022-01-20 05:36] LABS: ESTIMATED GFR 27 mL/min (>60)
[2022-01-20] MEDS: ARIPiprazole 10 MG Tab PO SCH (08:47)
[2022-01-20] MEDS: hydrALAZINE 25 MG Tab PO SCH ×3 (08:48→22:09)
[2022-01-20] MEDS: Dutasteride 0.5 MG Cap PO SCH (08:49)
[2022-01-20] MEDS: Diltiazem 180 MG Cap.CD PO SCH (08:50)
[2022-01-20] MEDS: Amiodarone 200 MG Tab PO SCH (08:51)
[2022-01-20] MEDS: Pantoprazole 40 MG Tab.CR PO SCH (08:51)
[2022-01-20] MEDS: Tamsulosin 0.4 MG Cap.ER PO SCH (08:51)
[2022-01-20] MEDS: DULoxetine 30 MG Cap PO SCH (08:52)
[2022-01-20] MEDS ORDERED: Metoprolol Succinate 50 MG Tab.ER PO SCH (09:00)
[2022-01-20] MEDS: Insulin Lispro 100 Unit/ML 3 ML KwikPen SUBCUT SCH ×3 (11:55→22:08)
[2022-01-20] MEDS: Gabapentin 300 MG Cap PO SCH ×2 (13:20→22:09)
[2022-01-20] MEDS: Nystatin Topical Powder 15 GM Bottle TOP SCH ×2 (14:36→22:11)
[2022-01-20] MEDS ORDERED: Rivaroxaban 10 MG Tab PO SCH (17:00)
[2022-01-20] MEDS ORDERED: Rivaroxaban 15 MG Tab PO SCH (17:00)
[2022-01-20] MEDS ORDERED: atorvaSTATin 10 MG Tab PO SCH (21:00)
[2022-01-20] MEDS ORDERED: atorvaSTATin 20 MG Tab PO SCH (21:00)
[2022-01-21] MEDS: DULoxetine 30 MG Cap PO SCH (08:36)
[2022-01-21] MEDS: Dutasteride 0.5 MG Cap PO SCH (08:36)
[2022-01-21] MEDS: hydrALAZINE 25 MG Tab PO SCH (08:36)
[2022-01-21] MEDS: Gabapentin 300 MG Cap PO SCH (08:36)
[2022-01-21] MEDS: Pantoprazole 40 MG Tab.CR PO SCH (08:36)
[2022-01-21] MEDS: Tamsulosin 0.4 MG Cap.ER PO SCH (08:37)
[2022-01-21] MEDS: Nystatin Topical Powder 15 GM Bottle TOP SCH (08:37)
[2022-01-21] MEDS: Diltiazem 180 MG Cap.CD PO SCH (08:37)
[2022-01-21] MEDS: Insulin Lispro 100 Unit/ML 3 ML KwikPen SUBCUT SCH ×2 (08:40→13:26)
[2022-01-21] MEDS: Amiodarone 200 MG Tab PO SCH (08:52)
[2022-01-21] MEDS ORDERED: Potassium Chloride 10 MEQ Cap.ER PO ONE (08:54)
[2022-01-21] MEDS ORDERED: Metoprolol Succinate 25 MG Tab.ER PO SCH (09:00)
[2022-01-21] MEDS ORDERED: Potassium Chloride 20 MEQ Tab.ER PO ONE (09:30)
[2022-01-21] MEDS: ARIPiprazole 10 MG Tab PO SCH (09:42)
[2022-01-21] MEDS ORDERED: Rivaroxaban 15 MG Tab PO SCH (17:00)
[2022-01-21] MEDS ORDERED: Levofloxacin 250 MG Tab PO SCH (21:00)
== END 2022-01-21 13:20 | disposition home or self-care (01) | DRG 682 ==
LOC: JP.ED 22:19 → JP.MS 01-20 02:22
PROVIDERS: ADMIT Family Medicine; ATTEND Internal Medicine
DX: N17.9 Acute kidney failure, unspecified (principal); J18.9 Pneumonia, unspecified organism; J96.01 Acute respiratory failure with hypoxia; Z68.43 Body mass index [BMI] 50.0-59.9, adult; I48.21 Permanent atrial fibrillation; G47.30 Sleep apnea, unspecified; N13.8 Other obstructive and reflux uropathy; I50.9 Heart failure, unspecified; G47.33 Obstructive sleep apnea (adult) (pediatric); I11.9 Hypertensive heart disease without heart failure; E78.00 Pure hypercholesterolemia, unspecified; I25.2 Old myocardial infarction; E66.01 Morbid (severe) obesity due to excess calories; R33.8 Other retention of urine; E11.65 Type 2 diabetes mellitus with hyperglycemia; G89.29 Other chronic pain; I11.0 Hypertensive heart disease with heart failure; E78.5 Hyperlipidemia, unspecified; F10.21 Alcohol dependence, in remission; H91.90 Unspecified hearing loss, unspecified ear; I25.10 Atherosclerotic heart disease of native coronary artery without angina pectoris; I49.9 Cardiac arrhythmia, unspecified; K59.09 Other constipation; K21.9 Gastro-esophageal reflux disease without esophagitis; R32 Unspecified urinary incontinence; M10.9 Gout, unspecified; F17.210 Nicotine dependence, cigarettes, uncomplicated; N40.1 Benign prostatic hyperplasia with lower urinary tract symptoms; E11.42 Type 2 diabetes mellitus with diabetic polyneuropathy; Z20.822 Contact with and (suspected) exposure to COVID-19; M19.90 Unspecified osteoarthritis, unspecified site; M54.9 Dorsalgia, unspecified; F41.9 Anxiety disorder, unspecified; F32.A Depression, unspecified; I87.2 Venous insufficiency (chronic) (peripheral); Z90.49 Acquired absence of other specified parts of digestive tract; Z86.718 Personal history of other venous thrombosis and embolism; Z87.01 Personal history of pneumonia (recurrent); Z79.84 Long term (current) use of oral hypoglycemic drugs; Z79.899 Other long term (current) drug therapy; Z79.01 Long term (current) use of anticoagulants; Z91.19 Patient's noncompliance with other medical treatment and regimen; Z88.8 Allergy status to other drugs, medicaments and biological substances
CPT/HCPCS: 0241U; 36415; 71045; 80048; 80053; 81001; 82947; 83605; 83880; 84153; 85025; 85610; 86140; 87040; 87086; 93005; 94640; 51702; 99285-25; A9270-GY; J1815; J1815-GY; J1940; J7620